=== PATIENT | male | born 1940 | race Caucasian/White ===

== ENCOUNTER 2019-10-16 10:43 | Outpatient (RCR) | payer MEDICARE, SELFPAY ==
[2019-10-16 11:08] VITALS: BMI 35.4
[2019-10-16 12:20] VITALS: BMI 35.3
[2019-10-16 12:22] VITALS: BMI 35.3
== END 2020-01-14 23:59 | disposition home or self-care (01) ==
LOC: ANHDMC 10:43
PROVIDERS: PCP Internal Medicine; Visit Provider Internal Medicine
DX: E11.65 Type 2 diabetes mellitus with hyperglycemia (principal); Z71.3 Dietary counseling and surveillance
CPT/HCPCS: 97802

== ENCOUNTER 2019-10-23 08:07 | Outpatient (CLI) | payer MEDICARE, SELFPAY ==
--- NOTE | ~2019-10-23 | CT_ITS ---
EXAMINATION: CT abdomen pelvis wo/w con EXAM DATE: 10/23/2019 09:02 INDICATION: Gross hematuria. TECHNIQUE: Spiral CT of the abdomen and pelvis was performed without contrast. The patient was then injected with small bolus intravenous Omnipaque 350, followed by delay of approximately 10 minutes to allow collecting system to opacify. A post contrast scan abdomen and pelvis was performed during inj ection of remaining contrast. A total of 130 cc intravenous contrast was administered. The dose-kourtney th product (DLP) for this examination was 2341.82 mGy-cm. The exposure was tailored according to pat ient size (auto mA exposure control), and iterative reconstruction (ASIR) was used as additional dose reduction technique. There is no prior study for comparison. FINDINGS: There is a bladder mass at the right ureterovesicular junction, extending into the bladder, measuring about 1.6 cm. Could be transitional cell cancer. Minimal right hydroureteronephrosis. The kidneys enhance symmetrically. There are no suspicious renal lesions. The calyces and opacified po rtions of ureters are unremarkable, without filling defects or focal suspicious strictures. There are radiation prostate seeds. Punctate pancreatic calcifications indicating chronic pancreatitis. Liver, spleen, adrenal glands are unremarkable. There is mild to moderate scattered arteriosclerotic disease. Gallbladder is unremarka ble. No biliary obstruction. There is no retroperitoneal or pelvic lymphadenopathy. Small umbilic al and bilateral inguinal fat-containing hernias. The appendix is normal. The stomach and small bowel are unremarkable. There is expected amount of c olonic stool. There is moderate descending and sigmoid predominant colonic diverticulosis. There is no adjacent inflammatory change to suggest diverticulitis. The heart is normal in size. There are no pericardial or pleural effusions. There is left basilar round opacity with volume loss, appearance consistent with round atelectasis. Other regions of basilar atelectasis are present. There are no os teoblastic or osteolytic lesions identified. IMPRESSION: 1. Bladder mass at the right ureterovesicular junction, mild right hydroureteronephrosis. Recommend cystoscopy. 2. Chronic pancreatitis. 3. Small hernias. 4. Colonic diverticulosis. 5. Basilar atelectasis. Reviewed, dictated and finalized at location B. A PROMOTER IMPRESSION: 1. Bladder mass at the right ureterovesicular junction, mild right hydroureter onephrosis. Recommend cystoscopy. 2. Chronic pancreatitis. 3. Small hernias. 4. Colonic diverticulosis. 5. Basilar atelectasis.
[2019-10-23 08:41] LABS: Blood Urea Nitrogen 36 mg/dL (8-26); Estimated Glomerular Filt Rate 37
== END 2019-10-23 08:08 | disposition home or self-care (01) ==
PROVIDERS: PCP Internal Medicine; Visit Provider Nurse Practitioner Adult Health
DX: R31.0 Gross hematuria (principal); K44.9 Diaphragmatic hernia without obstruction or gangrene; K57.30 Diverticulosis of large intestine without perforation or abscess without bleeding; R91.8 Other nonspecific abnormal finding of lung field; K86.1 Other chronic pancreatitis
CPT/HCPCS: 74178; Q9967

== ENCOUNTER 2019-11-19 13:01 | Outpatient (CLI) | payer MEDICARE, SELFPAY ==
[2019-11-19 13:29] LABS: Blood Urea Nitrogen 28 mg/dL (9-20); Calcium 9.4 mg/dL (8.4-10.2); Carbon Dioxide 30 mmol/L (22-30); Chloride 102 mmol/L (98-107); Estimated Glomerular Filt Rate 54; Glucose 202 mg/dL (75-110); Potassium 4.8 mmol/L (3.4-5.0); Sodium 137 mmol/L (137-145)
== END 2019-11-19 13:02 | disposition home or self-care (01) ==
LOC: ANHSURGERY 13:04
PROVIDERS: Anesthesiology; PCP Internal Medicine; Visit Provider Urology
DX: Z01.812 Encounter for preprocedural laboratory examination (principal); E11.9 Type 2 diabetes mellitus without complications
CPT/HCPCS: 36415; 80048

== ENCOUNTER 2019-11-22 00:33 | Day surgery (SDC) | payer MEDICARE, SELFPAY ==
[2019-11-16 12:37] VITALS: BMI 34.4
[2019-11-22] VITALS (8 sets, daily range): BP systolic 139–168; BP diastolic 58–93; PULSE 52–71; RESP 10–18; TEMP 36.6; O2SAT 97–100
--- NOTE | ~2019-11-22 | XR_ITS ---
EXAMINATION: XR retrograde pyelogram RT DATE: 11/22/2019 18:12 CDT INDICATION: Hematuria. Right hydronephrosis. TECHNIQUE: 111 fluoroscopic images from a right retrograde pyelogram are submitted for review. 21 sec onds of fluoroscopy FINDINGS: There is normal retrograde filling of the right ureter and renal pelvis with contrast. The right ureter is mildly dilated. No persistent filling defects are identified. There are possible fill ing defects in the lower aspect of the right renal pelvis, although this area is obscured by bowel co ntent. IMPRESSION: 1. Possible filling defect right renal pelvis inferiorly, although obscured by bowel content. Correl ate with real time procedural findings for details. Reviewed, dictated and finalized at location A. IMPRESSION: 1. Possible filling defect right renal pelvis inferiorly, although obscured by bowel content. Correlate with real time procedural findings for details.
--- NOTE | 2019-11-22 06:43 | WPDHPUPDATE1 ---
History and Physical Update Update Date/Time: 11/22/19 06:43 History and Physical has been reviewed, including an updated exam of the patient. There are NO changes in the patient's condition. Risks, benefits, and alternatives have been discussed and questions answered. Patient agrees to proceed with procedure.
--- NOTE | 2019-11-22 09:57 | WPDANESEPPF ---
Anes - Initial Pre Proc Eval Procedure: Operation Date: 11/22/19 11:30 Proposed Procedures p Cystoscopy, Right Retrograde Pyelogram, Right Ureteroscopy, - Andrzej Chapman MD s Possible Trans Urethral Resection Bladder Tumor - Andrzej Chapman MD Date/Time: 11/22/19 09:57 Surgeon: Andrzej Chapman MD Pre Op Diagnosis: hematuria, right hydronephrosis Patient Data Age: 78 Gender: M Height: 5 ft 10 in Weight: 108.86 kg Allergies Allergy/AdvReac Type Severity Reaction Status Date / Time No Known Allergies Allergy Verified 11/16/19 12:36 Home Medications Medication Instructions Recorded Confirmed Type hydrochlorothiazide 50 mg PO DAILY 08/17/19 11/21/19 History irbesartan 300 mg PO HS 08/17/19 11/21/19 History simvastatin 40 mg PO HS 08/17/19 11/21/19 History fluticasone fur. 100 mcg-umeclid 1 inhalation INHALATION DAILY 08/21/19 11/21/19 History 62.5 mcg-vilant 25 mcg inhalat.powder amlodipine 5 mg tablet 5 mg PO DAILY #30 tablet 11/11/19 11/21/19 Rx aspirin 81 mg PO HS 11/16/19 11/21/19 History blood sugar diagnostic #300 each 11/21/19 11/21/19 Rx glipizide 10 mg tablet, extended 10 mg PO BID 90 Days #180 tablet 11/21/19 11/21/19 Rx release 24 hr sitagliptin 100 mg tablet 100 mg PO QAM tablet 11/21/19 11/21/19 History Patient hx anesthesia problems: none Family hx anesthesia problems: none PMFSH Past Medical History Medical History Cataracts, bilateral Chronic back pain COPD (chronic obstructive pulmonary disease) CPAP (continuous positive airway pressure) dependence Diabetes Facial bone fracture Foot fracture GERD (gastroesophageal reflux disease) History of rectal polyps HTN (hypertension) Hyperlipidemia Prostate cancer Sleep apnea Stroke Surgical History Surgical History History of facial surgery Family History Family History Mother Cerebrovascular accident, Onset Age: 93 Patient's mother is Obesity Father Cerebrovascular accident, Onset Age: 84 Patient's father is Other Diabetes mellitus Family history of malignant neoplasm Hypertension Social History Social History Years smoked: 40 Smoking status: Former smoker Tobacco type: cigarettes Second hand tobacco smoke exposure: Yes Smoking end date: 08/18/19 Alcohol intake: current Drinks per week: 7 Substance use: never Gender identity (if verbalized by the patient): Male Spiritual care concerns: No Agree to blood products: No Anes - Eval Final PreProcedure Day of Procedure 11/22/19 09:57 Patient weight: obese Heart: regular rate and rhythm Lungs: decreased breath sounds Airway: Mallampati scale class II Neurological: alert and oriented Last oral intake: >/= 8 hours ASA classification: IV Emergent: no Anesthetic plan: proceed Anesthesia type and monitoring: general LMA and standard monitoring Informed Consent: The patient's anesthetic plan and its attendant risks and benefits were discussed with the patient/family/POA. Questions were solicited and answers provided to the satisfaction of the patient/family/POA.
[2019-11-22 09:58] LABS: Glucose Point of Care 183 (65-105)
[2019-11-22] MEDS: LACTATED RINGERS 1,000 ML 30 ML IV CONT (10:00)
[2019-11-22] MEDS: ceFAZolin 2 GM/D5W 50 ML 2 GM/50 ML BAG IVPB (10:03)
--- NOTE | 2019-11-22 10:36 | PM.PROC ---
Procedure Note - Detailed Date of procedure: 11/22/19 Pre-op diagnosis: hematuria, right hydronephrosis Post-op diagnosis: other (Large neoplasm posterior bladder wall) Procedure performed: 1. TURBT (large, 5-6cm) Description of procedure: Patient is brought to the operative suite where he has prepped and draped in routine sterile fashion while on a dorsal lithotomy position after the uneventful induction of a general LMA anesthetic. Cystoscopy was 1st undertaken with a 19 F rigid cystoscope. He has no urethral strictures and only moderate hyperplasia of his prostate. His bladder, however, revealed a large, somewhat unusual looking neoplasm overlying the right ureteral orifice. This appears to be pedunculated but is not particularly papillary in nature. It seems to be confined to that. The bladder although there is some slight hyperemia in the posterior wall. Using a 24 F resectoscope I resected this neoplasm in its entirety to its base. I sent a separate specimen as bladder tumor base. I then took a biopsy from the posterior wall. All the sites were cauterized with both the loop electrode and a rollerball electrode. After resection I was able to identify the right ureteral orifice. Retrograde pyelography showed no no apparent filling defects. I did perform right distal ureteroscopy with the semi-rigid scope and saw no mucosal abnormalities below the iliac vessels. Scopes wires were removed. The patient tolerated procedure well. I opted not to leave a urethral catheter. He was taken to the recovery room in good condition. Blood loss was less than 5 cc. Anesthesia: GLMA Surgeon: Andrzej Chapman MD Estimated blood loss (mL): 5 Drains: No Packing: No Pathology: yes (1. Bladder tumor 2. Bladder tumor base 3. Bladder biopsy) Complications: No immediate complications Condition: stable Disposition: PACU
--- NOTE | 2019-11-22 12:19 | ECG_ITS ---
Measurements Intervals [place] Rate: 57 P: 94 CT: 186 QRS: 38 QRSD: 116 T: 32 QT: 429 QTc: 419 Interpretive Statements SINUS BRADYCARDIA WITH MARKED SINUS ARRHYTHMIA ATRIAL PREMATURE COMPLEXES INTRAVENTRICULAR CONDUCTION DELAY BORDERLINE ECG Electronically Signed On 11-22-2019 12:53:54 CDT by Leland Day D.O.
--- NOTE | 2019-11-22 13:03 | SUR.PHASEII ---
1140 RECEIVED REPORT FROM COLLEGE AND CAREER COUNSELOR. RN STATES PT IN AFIB. DENIES PAIN OR SHORTNESS OF BREATH. PT HOOKED UP TO EKG- UNABLE TO SEE P WAVES. RHYTHM IRREGULAR. DR GRANT AWARE OF IRREGULAR HR. 1215 DR MONTELONGO AT PTS BEDSIDE ASSESSING EKG. 12 LEAD EKG ORDERED. 1228 12 LEAD EKG COMPLETED. 1230 DR MONTELONGO ASSESSING 12 LEAD EKG RESULTS. OKAY TO DISCHARGE HOME.
[2019-11-23 07:33] LABS: Glucose Point of Care 174 (65-105)
== END 2019-11-22 12:52 | disposition home or self-care (01) ==
PROVIDERS: PCP Internal Medicine; Visit Provider Urology
PROC: (CPT 52352; principal; 2019-11-22 11:30)
PROC: 0TBB8ZZ Excision of Bladder, Via Natural or Artificial Opening Endoscopic (ICD-10-PCS; CPT 52240; 2019-11-22 11:30)
DX: C67.8 Malignant neoplasm of overlapping sites of bladder (principal); N13.30 Unspecified hydronephrosis; I10 Essential (primary) hypertension; E78.5 Hyperlipidemia, unspecified; E11.9 Type 2 diabetes mellitus without complications; J44.9 Chronic obstructive pulmonary disease, unspecified; G47.33 Obstructive sleep apnea (adult) (pediatric); H26.9 Unspecified cataract; K21.9 Gastro-esophageal reflux disease without esophagitis; Z85.46 Personal history of malignant neoplasm of prostate; Z79.82 Long term (current) use of aspirin; Z79.84 Long term (current) use of oral hypoglycemic drugs; Z86.73 Personal history of transient ischemic attack (TIA), and cerebral infarction without residual deficits; Z87.891 Personal history of nicotine dependence; E66.9 Obesity, unspecified; Z68.35 Body mass index [BMI] 35.0-35.9, adult
CPT/HCPCS: 52240; 52204; 74420; 88305; 88307; 93005; C1758; C1769; J0690; J2405; J2704; J3010; J7120; Q9966

== ENCOUNTER 2020-04-01 10:27 | Outpatient (CLI) | payer MEDICARE, SELFPAY ==
--- NOTE | ~2020-04-01 | US_ITS ---
EXAMINATION: US venous doppler [facility] EXAM DATE: 04/01/2020 10:54 INDICATION: Left leg pain. TECHNIQUE: Multiple grayscale, color flow and Doppler images of the left lower extremity deep venous system were obtained and reviewed. There is no prior study for comparison. FINDINGS: The left common femoral, femoral and profunda veins demonstrate normal color flow, respirat ory variation, augmentation and compressibility. Compressibility, color flow confirmed within the le ft popliteal, posterior tibial, peroneal, and greater saphenous veins. IMPRESSION: 1. No left lower extremity deep venous thrombosis. Reviewed, dictated and finalized at location A.
== END 2020-04-01 10:28 | disposition home or self-care (01) ==
PROVIDERS: PCP Internal Medicine; Visit Provider Internal Medicine
DX: M79.605 Pain in left leg (principal)
CPT/HCPCS: 93971

== ENCOUNTER 2020-05-08 13:08 | Outpatient (CLI) | payer MEDICARE, SELFPAY ==
--- NOTE | 2020-05-08 13:25 | ECHO_ITS ---
Patient Info Name: Ihsan Henderson Age: 79 years : 1940 Gender: Male Ht: 70 in Wt: 250 lbs BSA: 2.41 m2 HR: 54 bpm BP: 190 / 92 mmHg Technical Quality: Good Exam Date: 05/08/2020 1:53 PM Exam Location: [facility] Pulmonary Patient Status: Outpatient Admit Date: 05/08/2020 Staff Ordering Physician: Tobin Alejandro DO Block Out Machine Operator: Don Whelan RDCS, RT Attending Provider: Tobin Alejandro DO Referring Physician: Javon BABIN; Exam Type: CA echo doppler color flow Study Info Indications R60.0 - Localized edema Complete two-dimensional, color flow and Doppler transthoracic echocardiogram is performed. Summary 1. Complete two-dimensional, color flow and Doppler transthoracic echocardiogram is performed. 2. Left ventricular chamber dimension is mildly enlarged. 3. Left ventricular systolic function is normal, estimated at 60-65%. 4. There is moderately increased left ventricular wall thickness. 5. The left ventricular diastolic function is grade I diastolic dysfunction. 6. E/e' 14 is mildly elevated. 7. Left atrial chamber dimension is mildly enlarged. 8. The mitral valve has mildly calcified annulus. 9. There is trace tricuspid valve regurgitation. 10. No pulmonary hypertension, estimated pulmonary arterial systolic pressure is 20 mmHg. 11. There is trace pulmonic regurgitation. Left Ventricle E/e' 14 is mildly elevated. Left ventricular chamber dimension is mildly enlarged. Left ventricular systolic function is normal, estimated at 60-65%. There is moderately increased left ventricular wall thickness. The left ventricular diastolic function is grade I diastolic dysfunction. Right Ventricle Right ventricular chamber dimension is normal. Right ventricular systolic function is normal. Left Atria Left atrial chamber dimension is mildly enlarged. Right Atria Right atrial chamber dimension is normal. Aortic Valve The aortic valve is trileaflet. There is no aortic valve stenosis. There is no aortic valve regurgitation. Pulmonic Valve There is trace pulmonic regurgitation. Mitral Valve The mitral valve has mildly calcified annulus. There is no mitral valve stenosis. There is no mitral valve regurgitation. Tricuspid Valve There is trace tricuspid valve regurgitation. No pulmonary hypertension, estimated pulmonary arterial systolic pressure is 20 mmHg. Pericardium/Pleural There is no pericardial effusion. Inferior Vena Cava Normal inferior vena cava with >50% collapse upon inspiration consistent with normal right atrial pressure, 5 mmHg. Aorta The aortic root size at the sinus of Valsalva is normal. Left Ventricular Outflow Tract Name Value Normal LVOT 2D LVOT Diameter 2.1 cm LVOT Doppler LVOT Peak Gradient 4 mmHg LVOT Mean Gradient 2 mmHg LVOT VTI 28 cm LVOT VTI/AV VTI Ratio 1.0 LVOT Stroke Volume 102 ml LVOT CO 6.6 l/min LVOT CI 2.7 l
== END 2020-05-08 13:09 | disposition home or self-care (01) ==
LOC: ANHCARD 13:12
PROVIDERS: PCP Internal Medicine; Visit Provider Internal Medicine
DX: M79.89 Other specified soft tissue disorders (principal); I34.0 Nonrheumatic mitral (valve) insufficiency
CPT/HCPCS: 93306

== ENCOUNTER 2020-06-24 00:36 | Outpatient (CLI) | payer MEDICARE, SELFPAY ==
[2020-06-24 19:00] LABS: SARS-CoV-2 RNA PCR Negative
== END 2020-06-24 00:37 | disposition home or self-care (01) ==
LOC: ANHCOVIDDT 00:36
PROVIDERS: PCP Internal Medicine; Visit Provider Urology
DX: Z01.812 Encounter for preprocedural laboratory examination (principal); Z20.828 Contact with and (suspected) exposure to other viral communicable diseases
CPT/HCPCS: 87635; C9803; U0003

== ENCOUNTER 2020-06-26 00:30 | Day surgery (SDC) | payer MEDICARE, SELFPAY ==
[2020-06-20 10:03] VITALS: BMI 35.7
[2020-06-26] VITALS (12 sets, daily range): BP systolic 175–212; BP diastolic 63–92; PULSE 50–77; RESP 10–18; TEMP 36.3–36.5; O2SAT 95–100
--- NOTE | ~2020-06-26 | XR_ITS ---
EXAMINATION: XR retrograde pyelogram BI DATE: 06/26/2020 10:47 INDICATION: Bilateral retrograde Polygram TECHNIQUE: 106 fluoroscopic images of the abdomen and pelvis were obtained during procedure performed by Dr. Chapman. Radiologist was not present for the imaging or procedure. The amount of fluoroscopy t mitali used during this procedure was 0.5 minutes. COMPARISON: None. FINDINGS: Images demonstrate bilateral retrograde pyelograms with contrast extending throughout normal bilatera l ureters into the normal bilateral renal calyces. No hydronephrosis, urothelial irregularities or fi lling defects to suggest nephrolithiasis. Numerous brachytherapy seeds at the prostate. IMPRESSION: 1. Normal bilateral retrograde pyelograms. See procedure note for further detail. Reviewed, dictated and finalized at location B. IMPRESSION: 1. Normal bilateral retrograde pyelograms. See procedure note for further detai l.
--- NOTE | 2020-06-26 06:55 | WPDHPUPDATE1 ---
History and Physical Update Update Date/Time: 06/26/20 06:55 History and Physical has been reviewed, including an updated exam of the patient. There are NO changes in the patient's condition. Risks, benefits, and alternatives have been discussed and questions answered. Patient agrees to proceed with procedure.
[2020-06-26 09:33] LABS: Glucose Point of Care 206 (65-105)
[2020-06-26 09:33] LABS: Glucose Point of Care 188 (65-105)
--- NOTE | 2020-06-26 09:35 | WPDANESEPPF ---
Anes - Initial Pre Proc Eval Procedure: Operation Date: 06/26/20 10:15 Proposed Procedures p Cystoscopy, Bilateral Retrograde Pyelogram - Andrzej Chapman MD s Trans Urethral Resection Bladder Tumor With Mitomycin-C - Andrzej Chapman MD Date/Time: 06/26/20 09:35 Surgeon: Andrzej Chapman MD Pre Op Diagnosis: Bladder CA Patient Data Age: 79 Gender: M Height: 5 ft 10 in Weight: 115 kg Last Vital Signs Temp 36.3 C L 06/26/20 09:18 Pulse 77 06/26/20 09:18 Resp 16 06/26/20 09:18 BP 182/82 H 06/26/20 09:18 Pulse Ox 97 06/26/20 09:18 Allergies Allergy/AdvReac Type Severity Reaction Status Date / Time amlodipine Allergy Mild swollen Verified 06/24/20 13:28 legs, rash Home Medications Medication Instructions Recorded Confirmed Type fluticasone fur. 100 mcg-umeclid 1 inhalation INHALATION QAM 08/21/19 06/24/20 History 62.5 mcg-vilant 25 mcg inhalat.powder aspirin 81 mg PO HS 11/16/19 06/24/20 History blood sugar diagnostic #300 each 03/01/20 06/24/20 Rx glipizide 10 mg tablet, extended 10 mg PO BID 90 Days #180 tablet 03/03/20 06/24/20 Rx release 24 hr irbesartan 300 mg tablet 300 mg PO HS #90 tablet 06/03/20 06/24/20 Rx simvastatin 40 mg tablet 40 mg PO HS #90 tablet 06/03/20 06/24/20 Rx sitagliptin 100 mg tablet 100 mg PO QAM #90 tablet 06/03/20 06/24/20 Rx hydrochlorothiazide 25 mg tablet 25 mg PO QAM tablet 06/19/20 06/24/20 History metoprolol tartrate 50 mg tablet 50 mg PO Q12H #180 tablet 06/23/20 06/24/20 Rx Laboratory Tests 06/26/20 06/26/20 09:21 09:23 POC Capillary Glucose 206 mg/dl H mg/dl 188 mg/dl H mg/dl (65-105) (65-105) Patient hx anesthesia problems: none Family hx anesthesia problems: none PMFSH Past Medical History Medical History Bladder cancer Diagnosed 12/2019 Cataracts, bilateral Chronic back pain COPD (chronic obstructive pulmonary disease) CPAP (continuous positive airway pressure) dependence Diabetes Facial bone fracture Foot fracture GERD (gastroesophageal reflux disease) History of rectal polyps HTN (hypertension) Hyperlipidemia Prostate cancer Sleep apnea Stroke Surgical History Surgical History History of facial surgery Family History Family History Mother Cerebrovascular accident, Onset Age: 93 Patient's mother is Obesity Father Cerebrovascular accident, Onset Age: 84 Patient's father is Other Diabetes mellitus Family history of malignant neoplasm Hypertension Social History Social History Smoking packs per day: 1 Smoking cigarettes per day: 20.0 Years smoked: 43 Smoking pack-years: 43.00 Smoking status: Former smoker Tobacco type: cigarettes Second hand tobacco smoke exposure: No Smoking end date: 03/12/04 Alcohol intake: current Drinks per week: 14 Alcohol use details: BEER/WINE Substance use: never Substance use type: does not use Living arrangements: with family Additional living arrangements comments: - EMILY Gender identity (if verbalized by the patient): Male Spiritual care concerns: No Agree to blood products: No Anes - Eval Final PreProcedure Day of Procedure 06/26/20 09:35 Patient weight: obese Heart: regular rate and rhythm Lungs: decreased breath sounds Airway: Mallampati scale class II Neurological: alert and oriented Last oral intake: >/= 8 hours ASA classification: III Emergent: no Anesthetic plan: proceed Anesthesia type and monitoring: general and standard monitoring Informed Consent: The patient's anesthetic plan and its attendant risks and benefits were discussed with the patient/family/POA. Questions were solicited and answers provided to the sa
[2020-06-26] MEDS: LACTATED RINGERS 1,000 ML 30 ML IV CONT (09:42)
[2020-06-26] MEDS: METOPROLOL TARTRATE INJ 5 MG/5 ML VIAL IV PUSH (09:43)
[2020-06-26] MEDS: ceFAZolin 2 GM/D5W 50 ML 2 GM/50 ML BAG IVPB (10:06)
[2020-06-26] MEDS: LIDOCAINE HCL 2% GEL UROJET 10 ML PKG MUCOUS MEM (10:25)
--- NOTE | 2020-06-26 10:33 | PM.PROC ---
Procedure Note - Detailed Date of procedure: 06/26/20 Pre-op diagnosis: Bladder CA Post-op diagnosis: same Procedure performed: 1. TURBT (small, 2-3cm) 2. Bilat. retrograde pyelograms Description of procedure: The patient was brought to the operative suite where he is prepped and draped in a routine sterile fashion while in the dorsal lithotomy position. This is done after the uneventful administration of general LMA anesthetic. 2% Xylocaine jelly is introduced intraurethrally and allowed to stand for an appropriate period of time. A 24F resectoscope sheath was placed in the bladder and the bladder is circumferentially inspected carefully. He has a single neoplastic looking growth just inside the posterior bladder neck - suspicuous for bladder neoplasm. This area is resected in its entirety with an attempt made to include detrusor muscle for pathological evaluation of invasion. The base and periphery of this resected side is cauterized with a loop electrode. Bilateral retrograde pyelograms were performed with an 8 F bulb-tipped catheter. This shows no evidence of upper urinary tract filling defects obstruction or other identifiable pathology. The bladder is emptied and the resectoscope was removed. The patient is taken to the recovery room having tolerated this procedure well. Anesthesia: GLMA Surgeon: Andrzej Chapman MD Estimated blood loss (mL): 0 Drains: Yes (16F Fonseca) Packing: No Pathology: yes Complications: No immediate complications Condition: stable Disposition: PACU
--- NOTE | 2020-06-26 10:36 | PM.PROC ---
Procedure Note - Detailed Date of procedure: 06/26/20 Pre-op diagnosis: Bladder CA Post-op diagnosis: same Procedure performed: Intravesical mitomycin-C installation Description of procedure: With the patient in the supine position, a 16F Fonseca catheter is placed using sterile technique. Using a protective facemask, gown and double layer of gloves Mitomycin-C 40mg in 50cc saline is administered through the catheter/into the bladder. The catheter is then plugged. Patient was instructed to lie supine x20min, then to roll both the left and right x20 min. each. Total dwell time will be 60 min., after which the bladder will be drained and catheter removed. Anesthesia: none Surgeon: Andrzej Chapman MD Estimated blood loss (mL): 0 Drains: No Packing: No Pathology: none sent Complications: No immediate complications Condition: stable Disposition: PACU
[2020-06-26 11:19] LABS: Glucose Point of Care 204 (65-105)
== END 2020-06-26 13:45 | disposition home or self-care (01) ==
PROVIDERS: PCP Internal Medicine; Visit Provider Urology
PROC: (CPT 52352; principal; 2020-06-26 10:15)
PROC: 0TBB8ZZ Excision of Bladder, Via Natural or Artificial Opening Endoscopic (ICD-10-PCS; CPT 52234; 2020-06-26 10:15)
DX: C67.5 Malignant neoplasm of bladder neck (principal); J44.9 Chronic obstructive pulmonary disease, unspecified; E11.9 Type 2 diabetes mellitus without complications; I10 Essential (primary) hypertension; E78.5 Hyperlipidemia, unspecified; K21.9 Gastro-esophageal reflux disease without esophagitis; G47.33 Obstructive sleep apnea (adult) (pediatric); Z85.46 Personal history of malignant neoplasm of prostate; Z79.84 Long term (current) use of oral hypoglycemic drugs; Z86.73 Personal history of transient ischemic attack (TIA), and cerebral infarction without residual deficits; Z87.891 Personal history of nicotine dependence; E66.9 Obesity, unspecified; Z68.36 Body mass index [BMI] 36.0-36.9, adult
CPT/HCPCS: 52234; 51720; 74420; 88305; A9270; C1758; C1769; J0690; J2405; J2704; J3010; J7120; J9280; Q9966

== ENCOUNTER → 2020-11-10 02:17 | Outpatient (CLI) | payer MEDICARE, SELFPAY ==
[2020-11-10 18:21] LABS: SARS-CoV-2 RNA PCR Negative
== END ==
PROVIDERS: PCP Internal Medicine; Visit Provider Urology
DX: Z01.812 Encounter for preprocedural laboratory examination (principal); Z20.822 Contact with and (suspected) exposure to COVID-19
CPT/HCPCS: C9803; U0003; U0005

== ENCOUNTER 2020-11-10 08:26 | Outpatient (CLI) | payer MEDICARE, SELFPAY ==
[2020-11-10 09:04] LABS: Anion Gap 1 mmol/L (8-16); Blood Urea Nitrogen 35 mg/dL (9-20); Calcium 8.8 mg/dL (8.4-10.2); Carbon Dioxide 33 mmol/L (22-30); Chloride 101 mmol/L (98-107); Estimated Glomerular Filt Rate 45; Glucose 240 mg/dL (75-110); Potassium 4.3 mmol/L (3.4-5.0); Sodium 135 mmol/L (137-145)
== END 2020-11-10 08:27 | disposition home or self-care (01) ==
PROVIDERS: Anesthesiology; PCP Internal Medicine; Visit Provider Urology
DX: Z01.812 Encounter for preprocedural laboratory examination (principal); E11.9 Type 2 diabetes mellitus without complications
CPT/HCPCS: 36415; 80048

== ENCOUNTER 2020-11-13 00:20 | Day surgery (SDC) | payer MEDICARE, SELFPAY ==
--- NOTE | 2020-11-04 08:13 | PM.HPGS ---
History of Present Illness History of Present Illness Consent: Risks, benefits, and alternatives have been discussed and questions answered. Patient agrees to proceed with procedure. Chief complaint: Recurring Bladder CA Narrative: Ihsan Henderson is a 79 year old male the we have struggle with intermittent scant hematuria and dysuria for 6-8 weeks. he is status post TURBT in November 2019 that showed muscle invasive high-grade bladder tumor.Cystoscopy in the office showed an area hyperemia in the posterior bladder wall of uncertain etiology, Not typical for recurrence neoplasm. Urinary cytology was slightly atypical but FISH was normal. Because of ongoing scan hematuria and dysuria he presents today for cystoscopy with bladder biopsy and possible TURBT. Review of Systems Cardiovascular: Cardiovascular: Denies chest pain, Denies lightheadedness, Denies palpitations and Denies dyspnea Respiratory: Respiratory: Denies dyspnea Gastrointestinal: Gastrointestinal: Denies diarrhea, Denies nausea and Denies vomiting Genitourinary: Genitourinary: Denies hematuria and Denies dysuria Endocrine: Endocrine: Denies palpitations [facility] Past Medical History Medical History (Updated 11/04/20 @ 08:14 by Andrzej Chapman MD) Bladder cancer Diagnosed 12/2019 Cataracts, bilateral Chronic back pain COPD (chronic obstructive pulmonary disease) CPAP (continuous positive airway pressure) dependence Diabetes Facial bone fracture Foot fracture GERD (gastroesophageal reflux disease) History of rectal polyps HTN (hypertension) Hyperlipidemia Prostate cancer Sleep apnea Stroke Surgical History Surgical History History of facial surgery Family History Family History Mother Cerebrovascular accident, Onset Age: 93 Patient's mother is Obesity Father Cerebrovascular accident, Onset Age: 84 Patient's father is Other Diabetes mellitus Family history of malignant neoplasm Hypertension Social History Social History Smoking packs per day: 1 Smoking cigarettes per day: 20.0 Years smoked: 43 Smoking pack-years: 43.00 Smoking status: Former smoker Tobacco type: cigarettes Second hand tobacco smoke exposure: No Smoking end date: 03/12/04 Alcohol intake: current Drinks per week: 14 Substance use: never Substance use type: does not use Additional living arrangements comments: - EMILY Gender identity (if verbalized by the patient): Male Spiritual care concerns: No Agree to blood products: No Meds Home Medications and Allergies Home Medications Medication Instructions Recorded Confirmed Type fluticasone fur. 100 mcg-umeclid 1 inhalation INHALATION QAM 08/21/19 09/22/20 History 62.5 mcg-vilant 25 mcg inhalat.powder aspirin 81 mg PO HS 11/16/19 09/22/20 History glipizide 10 mg tablet, extended 10 mg PO BID 90 Days #180 tablet 03/03/20 09/22/20 Rx release 24 hr irbesartan 300 mg tablet 300 mg PO HS #90 tablet 06/03/20 09/22/20 Rx simvastatin 40 mg tablet 40 mg PO HS #90 tablet 06/03/20 09/22/20 Rx sitagliptin 100 mg tablet 100 mg PO QAM #90 tablet 06/03/20 09/22/20 Rx metoprolol tartrate 50 mg tablet 50 mg PO Q12H #180 tablet 06/23/20 09/22/20 Rx cefuroxime axetil 500 mg tablet 500 mg PO Q12H #20 tablet 08/05/20 08/05/20 Rx blood sugar diagnostic #300 each 09/01/20 09/22/20 Rx betamethasone valerate 0.1 % 1 applic TOPICAL BID #45 g 09/22/20 09/22/20 Rx topical cream hydrochlorothiazide 25 mg tablet 25 mg PO QAM #90 tablet 09/29/20 Rx azelastine 137 mcg (0.1 %) nasal 2 spray INTRANASAL Q12H #30 ml 09/30/20 Rx spray aerosol Allergies Allergy/AdvReac Type Severity Reaction Status Date / Time amlodipine Allergy Mild swollen Verified 09/22/20 14:54 legs, rash
[2020-11-06 14:40] VITALS: BMI 34.2
--- NOTE | 2020-11-12 12:05 | WPDANESEPPF ---
Anes - Initial Pre Proc Eval Procedure: Operation Date: 11/13/20 08:15 Proposed Procedures p Trans Urethral Resection Bladder Tumor - Andrzej Chapman MD Date/Time: 11/12/20 12:05 Surgeon: Andrzej Chapman MD Pre Op Diagnosis: Recurring Bladder CA Patient Data Age: 79 Gender: M Height: 1.8 m Weight: 111.36 kg Allergies Allergy/AdvReac Type Severity Reaction Status Date / Time amlodipine Allergy Mild swollen Verified 11/13/20 06:20 legs, rash Home Medications Medication Instructions Recorded Confirmed Type fluticasone fur. 100 mcg-umeclid 1 inhalation INHALATION QAM 08/21/19 11/06/20 History 62.5 mcg-vilant 25 mcg inhalat.powder aspirin 81 mg PO HS 11/16/19 11/06/20 History glipizide 10 mg tablet, extended 10 mg PO BID 90 Days #180 tablet 03/03/20 11/06/20 Rx release 24 hr irbesartan 300 mg tablet 300 mg PO HS #90 tablet 06/03/20 11/06/20 Rx simvastatin 40 mg tablet 40 mg PO HS #90 tablet 06/03/20 11/06/20 Rx sitagliptin 100 mg tablet 100 mg PO QAM #90 tablet 06/03/20 11/06/20 Rx metoprolol tartrate 50 mg tablet 50 mg PO Q12H #180 tablet 06/23/20 11/06/20 Rx cefuroxime axetil 500 mg tablet 500 mg PO Q12H #20 tablet 08/05/20 11/06/20 Rx blood sugar diagnostic #300 each 09/01/20 11/06/20 Rx betamethasone valerate 0.1 % 1 applic TOPICAL BID #45 g 09/22/20 11/06/20 Rx topical cream hydrochlorothiazide 25 mg tablet 25 mg PO QAM #90 tablet 09/29/20 11/06/20 Rx azelastine 137 mcg (0.1 %) nasal 2 spray INTRANASAL Q12H #30 ml 09/30/20 11/06/20 Rx spray aerosol Patient hx anesthesia problems: none Family hx anesthesia problems: none PMFSH Past Medical History Medical History (Updated 11/13/20 @ 07:02 by Pilo Wilson MD) Bladder cancer Diagnosed 12/2019 BMI 36.0-36.9,adult Cataracts, bilateral Chronic back pain COPD (chronic obstructive pulmonary disease) CPAP (continuous positive airway pressure) dependence Diabetes Facial bone fracture Foot fracture GERD (gastroesophageal reflux disease) History of CVA with residual deficit History of rectal polyps HTN (hypertension) Hyperlipidemia Obesity Prostate cancer Sleep apnea Stroke Type 2 diabetes mellitus without complication, without long-term current use of insulin Surgical History Surgical History History of facial surgery Family History Family History Mother Cerebrovascular accident, Onset Age: 93 Patient's mother is Obesity Father Cerebrovascular accident, Onset Age: 84 Patient's father is Other Diabetes mellitus Family history of malignant neoplasm Hypertension Social History Social History Smoking packs per day: 1 Smoking cigarettes per day: 20.0 Years smoked: 43 Smoking pack-years: 43.00 Smoking status: Former smoker Tobacco type: cigarettes Second hand tobacco smoke exposure: No Smoking end date: 03/12/04 Alcohol intake: current Drinks per week: 14 Substance use: never Substance use type: does not use Living arrangements: alone Additional living arrangements comments: - EMILY Gender identity (if verbalized by the patient): Male Spiritual care concerns: No Agree to blood products: No Anes - Eval Final PreProcedure Day of Procedure 11/12/20 12:05 Patient weight: obese Heart: regular rate and rhythm Lungs: clear to auscultation and normal air movement Airway: Mallampati scale class II Neurological: alert and oriented Last oral intake: >/= 8 hours ASA classification: III Emergent: no Anesthetic plan: proceed Anesthesia type and monitoring: general LMA Informed Consent: The patient's anesthetic plan and its attendant risks and benefits were discussed with the patient/family/POA. Questions were solicited and answers provided to the satisfaction
[2020-11-13] VITALS (8 sets, daily range): BP systolic 148–186; BP diastolic 61–97; PULSE 45–67; RESP 12–20; TEMP 36.3–36.6; O2SAT 96–100
--- NOTE | 2020-11-13 07:01 | WPDHPUPDATE1 ---
History and Physical Update Update Date/Time: 11/13/20 07:01 History and Physical has been reviewed, including an updated exam of the patient. There are NO changes in the patient's condition. Risks, benefits, and alternatives have been discussed and questions answered. Patient agrees to proceed with procedure.
[2020-11-13 07:08] LABS: Glucose Point of Care 197 (65-105)
[2020-11-13] MEDS: ceFAZolin 2 GM/D5W 50 ML 2 GM/50 ML BAG IVPB (07:23)
[2020-11-13] MEDS: LIDOCAINE HCL 2% GEL UROJET 10 ML PKG MUCOUS MEM (07:55)
--- NOTE | 2020-11-13 07:58 | PM.PROC ---
Procedure Note - Detailed Date of procedure: 11/13/20 Pre-op diagnosis: Recurring Bladder CA Post-op diagnosis: same Procedure performed: 1. TURBT (small, 1cm) 2. Bladder biopsy Description of procedure: Patient is brought to the operative suite where he has prepped and draped in routine sterile fashion while in a dorsal lithotomy position. This procedure was done under a only minimal systemic sedation because of borderline hypertension. 2% xylocaine jelly was introduced intraurethrally and allowed to stay in for an appropriate period of time. 24F resectoscope was placed in the bladder. There to findings of no in this patient's bladder. First, in the posterior midline at the interureteric ridge there is a 1 cm, unusual appearing neoplastic lesion. This is pedunculated but not papillary. I resected this with an attempt made to include detrusor muscle for evaluation of invasion. Secondly, he has a generalized area of mild patchy hyperemia involving the posterior bladder. I obtain random biopsies from this using the loop electrode. The base and periphery the sites were cauterized with a rollerball. Anesthesia: MAC Surgeon: Andrzej Chapman MD Estimated blood loss (mL): 0 Drains: No Pathology: yes (1. Bladder tumor 2. Bladder biopsy) Complications: No immediate complications Condition: stable Disposition: PACU
[2020-11-13] MEDS: LACTATED RINGERS 1,000 ML 30 ML IV CONT (08:00)
--- NOTE | 2020-11-13 09:21 | SUR.PHASEII ---
Dr. Wilson is aware of BP. He said continue to monitor at this time.
[2020-11-13 12:05] LABS: Glucose Point of Care 199 (65-105)
== END 2020-11-13 10:03 | disposition home or self-care (01) ==
PROVIDERS: PCP Internal Medicine; Visit Provider Urology
PROC: 0TBB8ZZ Excision of Bladder, Via Natural or Artificial Opening Endoscopic (ICD-10-PCS; CPT 52234; principal; 2020-11-13 07:30)
DX: C67.0 Malignant neoplasm of trigone of bladder (principal); C67.3 Malignant neoplasm of anterior wall of bladder; I10 Essential (primary) hypertension; E11.9 Type 2 diabetes mellitus without complications; J44.9 Chronic obstructive pulmonary disease, unspecified; K21.9 Gastro-esophageal reflux disease without esophagitis; E78.5 Hyperlipidemia, unspecified; G47.33 Obstructive sleep apnea (adult) (pediatric); Z86.73 Personal history of transient ischemic attack (TIA), and cerebral infarction without residual deficits; Z85.46 Personal history of malignant neoplasm of prostate; Z79.84 Long term (current) use of oral hypoglycemic drugs; E66.9 Obesity, unspecified; Z68.33 Body mass index [BMI] 33.0-33.9, adult; Z87.891 Personal history of nicotine dependence
CPT/HCPCS: 52234; 52204; 36415; 80048; 82948; 88305; A9270; C9803; J0690; J2405; J2704; J3010; J7120; U0003; U0005

== ENCOUNTER 2021-04-13 10:09 | Outpatient (CLI) | payer MEDICARE, SELFPAY ==
--- NOTE | 2021-04-13 10:30 | ECG_ITS ---
Measurements Intervals [place] Rate: 55 P: 49 [place]: 181 QRS: 39 QRSD: 114 T: 16 QT: 423 QTc: 407 Interpretive Statements SINUS BRADYCARDIA WITH SINUS ARRHYTHMIA INTRAVENTRICULAR CONDUCTION DELAY BORDERLINE R WAVE PROGRESSION, ANTERIOR LEADS BORDERLINE T WAVE ABNORMALITY- INFERIOR LEADS BORDERLINE ECG Electronically Signed On 04-13-2021 11:11:14 CDT by Leland Day D.O.
[2021-04-13 11:19] LABS: Anion Gap 2 mmol/L (8-16); Blood Urea Nitrogen 34 mg/dL (9-20); Calcium 9.1 mg/dL (8.4-10.2); Carbon Dioxide 34 mmol/L (22-30); Chloride 100 mmol/L (98-107); Estimated Glomerular Filt Rate 39; Glucose 213 mg/dL (65-110); Sodium 136 mmol/L (137-145)
[2021-04-13 11:20] LABS: INR 0.8; Prothrombin Time 11.2 Seconds (11.1-14.7)
[2021-04-13 11:21] LABS: Partial Thromboplastin Time 24.9 SECONDS (22.3-36.8)
== END 2021-04-13 10:10 | disposition home or self-care (01) ==
PROVIDERS: Anesthesiology; PCP Internal Medicine; Visit Provider Urology
DX: E11.9 Type 2 diabetes mellitus without complications (principal); N18.30 Chronic kidney disease, stage 3 unspecified; Z01.818 Encounter for other preprocedural examination; I45.9 Conduction disorder, unspecified
CPT/HCPCS: 36415; 80048; 85610; 85730; 93005

== ENCOUNTER 2021-04-16 01:49 | Day surgery (SDC) | payer MEDICARE, SELFPAY ==
[2021-04-09 15:15] VITALS: BMI 34.2
--- NOTE | 2021-04-15 14:52 | WPDANESEPPF ---
Anes - Initial Pre Proc Eval Procedure: Operation Date: 04/16/21 07:30 Proposed Procedures p Trans Urethral Resection Bladder Tumor with Mitomycin Instillation - Andrzej Chapman MD Date/Time: 04/15/21 14:52 Surgeon: Andrzej Chapman MD Pre Op Diagnosis: gross hematuria, bladder cancer Patient Data Age: 80 Gender: M Height: 1.8 m Weight: 111.5 kg Allergies Allergy/AdvReac Type Severity Reaction Status Date / Time amlodipine Allergy Mild swollen Verified 04/09/21 15:31 legs, rash Home Medications Medication Instructions Recorded Confirmed Type aspirin 81 mg PO HS 11/16/19 04/09/21 History cefuroxime axetil 500 mg tablet 500 mg PO Q12H #20 tablet 08/05/20 04/09/21 Rx blood sugar diagnostic #300 each 09/01/20 04/09/21 Rx betamethasone valerate 0.1 % 1 applic TOPICAL BID #45 g 09/22/20 04/09/21 Rx topical cream azelastine 137 mcg (0.1 %) nasal 2 spray INTRANASAL Q12H #30 ml 09/30/20 04/09/21 Rx spray aerosol irbesartan 300 mg tablet 300 mg PO HS #90 tablet 11/22/20 04/09/21 Rx simvastatin 40 mg tablet 40 mg PO HS #90 tablet 11/22/20 04/09/21 Rx sitagliptin 100 mg tablet 100 mg PO QAM #90 tablet 11/22/20 04/09/21 Rx metoprolol tartrate 50 mg tablet 50 mg PO Q12H #180 tablet 12/18/20 04/09/21 Rx hydrochlorothiazide 25 mg tablet 25 mg PO QAM #90 tablet 12/30/20 04/09/21 Rx glipizide 10 mg tablet, extended 10 mg PO BID #60 tablet 04/09/21 04/09/21 Rx release 24 hr Patient hx anesthesia problems: none Family hx anesthesia problems: none PMFSH Past Medical History Medical History Bladder cancer Diagnosed 12/2019 BMI 36.0-36.9,adult Cataracts, bilateral Chronic back pain COPD (chronic obstructive pulmonary disease) CPAP (continuous positive airway pressure) dependence Diabetes Facial bone fracture Foot fracture GERD (gastroesophageal reflux disease) History of CVA with residual deficit History of rectal polyps HTN (hypertension) Hyperlipidemia Obesity Prostate cancer Sleep apnea Stroke Type 2 diabetes mellitus without complication, without long-term current use of insulin Surgical History Surgical History History of facial surgery Family History Family History Mother Cerebrovascular accident, Onset Age: 93 Patient's mother is Obesity Father Cerebrovascular accident, Onset Age: 84 Patient's father is Other Diabetes mellitus Family history of malignant neoplasm Hypertension Social History Social History Smoking packs per day: 1 Smoking cigarettes per day: 20.0 Years smoked: 40 Smoking pack-years: 40.00 Smoking status: Former smoker Tobacco type: cigarettes Second hand tobacco smoke exposure: No Smoking end date: 08/18/19 Alcohol intake: current Drinks per week: 7 Alcohol use details: BEER/WINE Substance use: never Substance use type: does not use Living arrangements: alone Additional living arrangements comments: - EMILY Gender identity (if verbalized by the patient): Male Spiritual care concerns: No Agree to blood products: No Anes - Eval Final PreProcedure Day of Procedure 04/15/21 14:52 Patient weight: obese Heart: regular rate and rhythm Lungs: clear to auscultation and normal air movement Airway: Mallampati scale class II Neurological: alert and oriented Last oral intake: >/= 8 hours ASA classification: III Emergent: no Anesthetic plan: proceed Anesthesia type and monitoring: general LMA Informed Consent: The patient's anesthetic plan and its attendant risks and benefits were discussed with the patient/family/POA. Questions were solicited and answers provided to the satisfaction of the patient/family/POA.
[2021-04-16] VITALS (12 sets, daily range): BP systolic 169–197; BP diastolic 58–93; PULSE 53–70; RESP 14–19; TEMP 36.3–36.7; O2SAT 97–100; BMI 36.1
--- NOTE | 2021-04-16 06:18 | WPDHPUPDATE1 ---
History and Physical Update Update Date/Time: 04/16/21 06:18 History and Physical has been reviewed, including an updated exam of the patient. There are NO changes in the patient's condition. Risks, benefits, and alternatives have been discussed and questions answered. Patient agrees to proceed with procedure.
[2021-04-16] MEDS: LACTATED RINGERS 1,000 ML 30 ML IV CONT (06:43)
[2021-04-16 06:45] LABS: Glucose Point of Care 191 mg/dl (65-105)
[2021-04-16] MEDS: ceFAZolin 2 GM/D5W 50 ML 2 GM/50 ML BAG IVPB (07:26)
[2021-04-16] MEDS: LIDOCAINE HCL 2% GEL UROJET 10 ML PKG MUCOUS MEM (07:45)
--- NOTE | 2021-04-16 08:05 | W.PM.PROC2 ---
Procedure Note - Detailed Date of Procedure 04/16/21 Pre-op Diagnosis gross hematuria, recurrent bladder cancer Post-op Diagnosis same Procedure Performed TURBT (medium, 4 cm) Surgeon Andrzej Chapman MD Anesthesia general Description of Procedure The patient was brought to the operative suite where he is prepped and draped in a routine sterile fashion while in the dorsal lithotomy position. This is done after the uneventful administration of general LMA anesthetic. 2% Xylocaine jelly is introduced intraurethrally and allowed to stand for an appropriate period of time. A 24F resectoscope sheath was placed in the bladder and the bladder is circumferentially inspected carefully. [He has a single area of hyperemia suggestive of papillary transitional cell carcinoma in the right posterior lateral bladder wall. This area is resected in its entirety with an attempt made to include detrusor muscle for pathological evaluation of invasion. The base and periphery of this resected side is cauterized with a loop electrode. The bladder is emptied and the resectoscope was removed. An 18 F urethral catheter was placed. The patient is taken to the recovery room having tolerated this procedure well. Estimated Blood Loss 0 Drains Yes (18F Fonseca catheter) Packing No Pathology yes Complications No immediate complications Condition stable Disposition PACU
[2021-04-16 08:08] LABS: Glucose Point of Care 198 mg/dl (65-105)
--- NOTE | 2021-04-16 08:08 | W.PM.PROC2 ---
Procedure Note - Detailed Date of Procedure 04/16/21 Pre-op Diagnosis gross hematuria, bladder cancer Post-op Diagnosis same Procedure Performed mitomycin-C installation Surgeon Andrzej Chapman MD Employment Instructional Associate None Anesthesia none Description of Procedure With the patient in the supine position, a 16F Fonseca catheter is placed using sterile technique. Using a protective facemask, gown and double layer of gloves Mitomycin-C 40mg in 50cc saline is administered through the catheter/into the bladder. The catheter is then plugged. Patient was instructed to lie supine x20min, then to roll both the left and right x20 min. each. Total dwell time will be 60 min., after which the bladder will be drained and catheter removed. Estimated Blood Loss 0 Drains No Packing No Pathology none sent Complications No immediate complications Condition stable Disposition PACU
--- NOTE | 2021-04-16 09:08 | SUR.PHASEI ---
Spoke with Dr. Wilson regarding patient's elevated blood pressure, new orders received.
[2021-04-16] MEDS: hydrALAZINE HCL 20 MG/ML VIAL 10 MG IV PUSH (09:11)
--- NOTE | 2021-04-16 09:30 | SUR.PHASEI ---
150 normal saline instilled into bladder via ramsey catheter, catheter discontinued following instillation. Patient tolerated well.
--- NOTE | 2021-04-16 16:53 | SUR.PHASEII ---
1015: Dr. Wilson aware of patient's BP and ok sending patient home. Patient told to take oral meds for BP at home.
== END 2021-04-16 10:36 | disposition home or self-care (01) ==
PROVIDERS: PCP Internal Medicine; Visit Provider Urology
PROC: 0TBB8ZZ Excision of Bladder, Via Natural or Artificial Opening Endoscopic (ICD-10-PCS; CPT 52235; principal; 2021-04-16 07:30)
DX: D09.0 Carcinoma in situ of bladder (principal); R31.0 Gross hematuria; N30.21 Other chronic cystitis with hematuria; R35.1 Nocturia; R39.15 Urgency of urination; N32.81 Overactive bladder; Z79.82 Long term (current) use of aspirin; J44.9 Chronic obstructive pulmonary disease, unspecified; E11.9 Type 2 diabetes mellitus without complications; K21.9 Gastro-esophageal reflux disease without esophagitis; Z86.73 Personal history of transient ischemic attack (TIA), and cerebral infarction without residual deficits; I10 Essential (primary) hypertension; G47.30 Sleep apnea, unspecified; E66.9 Obesity, unspecified; Z68.36 Body mass index [BMI] 36.0-36.9, adult; Z87.891 Personal history of nicotine dependence
CPT/HCPCS: 52235; 51720; 36415; 80048; 82948; 85610; 85730; 88305; 93005; A9270; J0360; J0690; J3010; J7120; J9280

== ENCOUNTER 2021-09-30 13:23 | Outpatient (CLI) | payer MEDICARE, SELFPAY ==
--- NOTE | ~2021-09-30 | US_ITS ---
EXAMINATION: US renal BI EXAM DATE: 09/30/2021 14:00 INDICATION: Stage 3B chronic kidney disease. TECHNIQUE: Multiple grayscale and Doppler images of the kidneys were obtained (by a technologist who performed the scan) and subsequently reviewed. Comparison is made to prior examination from 10/08/2019 . Correlation was made with CT 10/23/2019. FINDINGS: There is moderate amount of bilateral renal cortical thinning. Right kidney: There is normal contour and echogenicity. It measures 11.9 x 5.7 x 6.1 centimeters. T here are no focal renal lesions identified. There is no hydronephrosis. Left kidney: There is normal contour and echogenicity. It measures 11.7 x 5.1 x 6.0 centimeters. Th ere are no focal renal lesions identified. There is no hydronephrosis. There is dependent echogenic region in the bladder causing artifact artifact suggesting this could be bladder stone or multiple small layering stones. Finding was not present 2 years ago. IMPRESSION: 1. Bilateral renal cortical thinning. No hydronephrosis. 2. Dependent bladder region with artifact suggesting calcification, bladder stone or stones. Calcifi ed bladder mass also possible given prior CT scan. Reviewed, dictated and finalized at location [facility] [employer] IMPRESSION: 1. Bilateral renal cortical thinning. No hydronephrosis. 2. Dependent bladder region with artifact suggesting calcification, bladder st one or stones. Calcified bladder mass also possible given prior CT scan.
== END 2021-09-30 13:24 | disposition home or self-care (01) ==
PROVIDERS: PCP Internal Medicine; Visit Provider Internal Medicine Nephrology
DX: I12.9 Hypertensive chronic kidney disease with stage 1 through stage 4 chronic kidney disease, or unspecified chronic kidney disease (principal); N18.32 Chronic kidney disease, stage 3b; E11.29 Type 2 diabetes mellitus with other diabetic kidney complication
CPT/HCPCS: 76775

== ENCOUNTER 2021-10-29 09:00 | Outpatient (CLI) | payer MEDICARE, SELFPAY ==
[2021-10-29 09:47] LABS: Prothrombin Time 12.6 Seconds (11.1-14.7)
[2021-10-29 09:55] LABS: Anion Gap 4 mmol/L (8-16); Blood Urea Nitrogen 29 mg/dL (9-20); Calcium 9.3 mg/dL (8.4-10.2); Carbon Dioxide 31 mmol/L (22-30); Chloride 105 mmol/L (98-107); Estimated Glomerular Filt Rate 39; Glucose 206 mg/dL (65-110); Potassium 4.6 mmol/L (3.4-5.0); Sodium 140 mmol/L (137-145)
== END 2021-10-29 09:01 | disposition home or self-care (01) ==
PROVIDERS: Anesthesiology; PCP Internal Medicine; Visit Provider Urology
DX: N18.9 Chronic kidney disease, unspecified (principal); Z01.818 Encounter for other preprocedural examination
CPT/HCPCS: 36415; 80048; 85610; 85730

== ENCOUNTER 2021-11-05 00:22 | Day surgery (SDC) | payer MEDICARE, SELFPAY ==
[2021-10-27 14:30] VITALS: BMI 36.3
--- NOTE | 2021-10-27 14:39 | PC.NURSE ---
Report to the Outpatient Waiting Room, entrance under the green pavilion located off [facility], at time _0700_ on date _11/05/21_. OR Time: _0900_. - You and your visitor will be asked a series of questions to screen for COVID 19 for your protection. - A mask is required within the hospital. Preoperative COVID Testing Requirements: NONE Patients may have clear liquids (water, carbonated beverages, clear teas, apple juice) until 3 hours prior to surgery (0600 AM) with a maximum of 20 ounces. - No food from midnight until time of surgery Take the following medications with a SIP of water the morning of surgery: _FELODIPINE, METOPROLOL, __ Medications to discontinue per physician _PT STATES STOPPING ASPIRIN __ Please no make-up, nail uruguayan, hairspray, perfume, deodorant, or body powder the day of surgery. No jewelry (including any body piercings) or valuables the day of surgery, leave them at home. Please take a shower or bath the night before, or the morning of, surgery with an antibacterial soap. Wear comfortable, loose fitting clothing. Children are encouraged to wear pajamas. - Jewelry must be removed prior to entering the operating room. Rings and piercings that are not removed may be cut off. - The hospital will not accept responsibility for valuables. - Please leave all valuables, including medications, at home the day of surgery. If you are going home after surgery, a licensed vibratory pile driver must drive you home. - NO public transportation without another adult. - We recommend that an adult stay with you for 24 hours following discharge. - We also recommend that you do not drive, make important decision, drink alcoholic beverages, or take any drugs that were not prescribed by your health care provider for at least 24 hours after your discharge time. One visitor will be allowed to accompany the patient into the hospital. Patients visitor will be instructed to remain with patient at all times or leave the building. We will allow the visitor to come back to the postoperative area when patient is ready. Follow any additional instructions given to you from your surgeon. Telephone instructions given to ____PT and asked if any additional questions and then verbalized understanding. Patient advised to call surgeon office or pre surgery nurse liaison, KARLA [phone] if any additional questions.
--- NOTE | 2021-11-02 07:02 | PM.HPGS ---
History of Present Illness History of Present Illness Consent: Risks, benefits, and alternatives have been discussed and questions answered. Patient agrees to proceed with procedure. Chief complaint: bladder cancer, gross hematuria Narrative: Ihsan Henderson is a 80 year old male, well known to our practice, with a history of recurrent bladder tumor dating back to November 2019. He initially had a muscle invasive bladder tumor which, upon resection, did not initially persist or recur. Since then he has had several recurrences of more superficial neoplasm. He has had courses of both adjuvant BCG and mitomycin C. recent surveillance cystoscopy shows a small recurrence in the posterior bladder wall at the bladder neck. Review of Systems Cardiovascular: Cardiovascular: Denies chest pain, Denies lightheadedness, Denies palpitations and Denies dyspnea Respiratory: Respiratory: Denies dyspnea Gastrointestinal: Gastrointestinal: Denies diarrhea, Denies nausea and Denies vomiting Genitourinary: Genitourinary: Denies hematuria and Denies dysuria Endocrine: Endocrine: Denies palpitations PMFSH Past Medical History Medical History Bladder cancer Diagnosed 12/2019 BMI 36.0-36.9,adult Cataracts, bilateral Chronic back pain COPD (chronic obstructive pulmonary disease) CPAP (continuous positive airway pressure) dependence Diabetes Facial bone fracture Foot fracture GERD (gastroesophageal reflux disease) History of CVA with residual deficit History of rectal polyps HTN (hypertension) Hyperlipidemia Obesity Prostate cancer Sleep apnea Stroke Type 2 diabetes mellitus without complication, without long-term current use of insulin Surgical History Surgical History History of facial surgery Family History Family History Mother Cerebrovascular accident, Onset Age: 93 Patient's mother is Obesity Father Cerebrovascular accident, Onset Age: 84 Patient's father is Other Diabetes mellitus Family history of malignant neoplasm Hypertension Social History Social History Smoking packs per day: 1 Smoking cigarettes per day: 20.0 Years smoked: 44 Smoking pack-years: 44.00 Smoking status: Former smoker Tobacco type: cigarettes Second hand tobacco smoke exposure: No Smoking end date: 03/12/04 Alcohol intake: current Drinks per week: 14 Alcohol use details: BEER/WINE Substance use: never Substance use type: does not use Additional living arrangements comments: - EMILY Gender identity (if verbalized by the patient): Male Spiritual care concerns: No Agree to blood products: No Meds Home Medications and Allergies Home Medications Medication Instructions Recorded Confirmed Type blood sugar diagnostic #300 each 09/01/20 10/27/21 Rx azelastine 137 mcg (0.1 %) nasal 2 spray INTRANASAL Q12H #30 ml 09/30/20 10/27/21 Rx spray aerosol hydrocodone-acetaminophen 1 - 2 tablet PO Q6H PRN #20 tablet 04/16/21 10/27/21 Rx simvastatin 40 mg tablet 40 mg PO HS #90 tablet 05/28/21 10/27/21 Rx metoprolol tartrate 50 mg tablet 50 mg PO Q12H #180 tablet 06/11/21 10/27/21 Rx mupirocin 2 % topical ointment 1 applic TOPICAL TID #22 g 06/22/21 10/27/21 Rx Rybelsus 7 mg tablet 7 mg PO DAILY #90 tablet NS 07/29/21 10/27/21 Rx hydrochlorothiazide 25 mg tablet 25 mg PO QAM #90 tablet 08/05/21 10/27/21 Rx glipizide 10 mg tablet, extended 10 mg PO BID #180 tablet 10/07/21 10/27/21 Rx release 24 hr felodipine 2.5 mg tablet,extended See Rx Instructions .ROUTE 10/18/21 10/27/21 Rx release 24 hr .COMPLEX #90 tablet irbesartan 300 mg tablet 300 mg PO HS #90 tablet 10/26/21 10/27/21 Rx Allergies Allergy/AdvReac Type Severity Reaction Status Ean
[2021-11-05] VITALS (12 sets, daily range): BP systolic 157–221; BP diastolic 72–109; PULSE 78–98; RESP 11–20; TEMP 36.1–36.6; O2SAT 93–100
--- NOTE | 2021-11-05 06:43 | WPDHPUPDATE1 ---
History and Physical Update Update Date/Time: 11/05/21 06:43 History and Physical has been reviewed, including an updated exam of the patient. There are NO changes in the patient's condition. Risks, benefits, and alternatives have been discussed and questions answered. Patient agrees to proceed with procedure.
[2021-11-05] MEDS: LACTATED RINGERS 1,000 ML 30 ML IV CONT (07:31)
[2021-11-05 07:41] LABS: Glucose Point of Care 155 mg/dl (65-105)
--- NOTE | 2021-11-05 07:50 | WPDANESEPPF ---
Anes - Initial Pre Proc Eval Procedure: Operation Date: 11/05/21 09:00 Proposed Procedures p Trans Urethral Resection Bladder Tumor with Gemcitabine Instillation - Andrzej Chapman MD Date/Time: 11/05/21 07:50 Surgeon: Andrzej Chapman MD Pre Op Diagnosis: bladder cancer, gross hematuria Patient Data Age: 80 Gender: M Height: 1.8 m Weight: 116.9 kg Last Vital Signs Temp 36.1 C L 11/05/21 07:03 Pulse 79 11/05/21 07:03 Resp 16 11/05/21 07:03 BP 185/97 H 11/05/21 07:03 Pulse Ox 98 11/05/21 07:03 Allergies Allergy/AdvReac Type Severity Reaction Status Date / Time amlodipine Allergy Mild swollen Verified 11/05/21 07:17 legs, rash Home Medications Medication Instructions Recorded Confirmed Type blood sugar diagnostic #300 each 09/01/20 10/27/21 Rx azelastine 137 mcg (0.1 %) nasal 2 spray INTRANASAL Q12H #30 ml 09/30/20 11/05/21 Rx spray aerosol hydrocodone-acetaminophen 1 - 2 tablet PO Q6H PRN #20 tablet 04/16/21 11/05/21 Rx simvastatin 40 mg tablet 40 mg PO HS #90 tablet 05/28/21 11/05/21 Rx metoprolol tartrate 50 mg tablet 50 mg PO Q12H #180 tablet 06/11/21 11/05/21 Rx Rybelsus 7 mg tablet 7 mg PO DAILY #90 tablet NS 07/29/21 11/05/21 Rx hydrochlorothiazide 25 mg tablet 25 mg PO QAM #90 tablet 08/05/21 11/05/21 Rx felodipine 2.5 mg tablet,extended See Rx Instructions .ROUTE 10/18/21 11/05/21 Rx release 24 hr .COMPLEX #90 tablet irbesartan 300 mg tablet 300 mg PO HS #90 tablet 10/26/21 11/05/21 Rx dapagliflozin 10 mg tablet 10 mg PO DAILY 90 Days #90 tablet 11/03/21 11/05/21 Rx glipizide 10 mg PO DAILY 11/05/21 11/05/21 History Laboratory Tests 11/05/21 07:38 POC Capillary Glucose 155 mg/dl H mg/dl (65-105) Patient hx anesthesia problems: none Family hx anesthesia problems: none Results Review: All pre-operative results and documents have been reviewed as part of the pre-operative evaluation. [facility] Past Medical History Medical History Bladder cancer Diagnosed 12/2019 BMI 36.0-36.9,adult Cataracts, bilateral Chronic back pain COPD (chronic obstructive pulmonary disease) CPAP (continuous positive airway pressure) dependence Diabetes Facial bone fracture Foot fracture GERD (gastroesophageal reflux disease) History of CVA with residual deficit History of rectal polyps HTN (hypertension) Hyperlipidemia Obesity Prostate cancer Sleep apnea Stroke Type 2 diabetes mellitus without complication, without long-term current use of insulin Surgical History Surgical History History of facial surgery Family History Family History Mother Cerebrovascular accident, Onset Age: 93 Patient's mother is Obesity Father Cerebrovascular accident, Onset Age: 84 Patient's father is Other Diabetes mellitus Family history of malignant neoplasm Hypertension Social History Social History Smoking packs per day: 1 Smoking cigarettes per day: 20.0 Years smoked: 40 Smoking pack-years: 40.00 Smoking status: Former smoker Tobacco type: cigarettes Second hand tobacco smoke exposure: No Smoking end date: 08/18/19 Alcohol intake: current Drinks per week: 7 Alcohol use details: BEER/WINE Substance use: never Substance use type: does not use Living arrangements: alone Additional living arrangements comments: - EMILY Gender identity (if verbalized by the patient): Male Spiritual care concerns: No Agree to blood products: No Anes - Eval Final PreProcedure Day of Procedure 11/05/21 07:50 Patient weight: obese Heart: regular rate and rhythm Lungs: clear to auscultation Airway: Mallampati scale class II Neurological: alert and oriented Last oral intake: >/= 8 hour
[2021-11-05] MEDS: ceFAZolin 2 GM/D5W 50 ML 2 GM/50 ML BAG IVPB (08:19)
[2021-11-05] MEDS: LIDOCAINE HCL 2% GEL UROJET 10 ML PKG MUCOUS MEM (08:32)
--- NOTE | 2021-11-05 08:51 | W.PM.PROC2 ---
Procedure Note - Detailed Date of Procedure 11/05/21 Pre-op Diagnosis bladder cancer, gross hematuria Post-op Diagnosis same Procedure Performed TURBT (medium, 3-4cm) Surgeon Andrzej Chapman MD Anesthesia general Description of Procedure The patient was brought to the operative suite where he is prepped and draped in a routine sterile fashion while in the dorsal lithotomy position. This is done after the uneventful administration of systemic sedation. 2% Xylocaine jelly is introduced intraurethrally and allowed to stand for an appropriate period of time. A 24F resectoscope sheath was placed in the bladder and the bladder is circumferentially inspected carefully. 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 This area is resected in its entirety with an attempt made to include detrusor muscle for pathological evaluation of invasion. The base and periphery of this resected side is cauterized with a loop electrode. The bladder is emptied and the resectoscope was removed. The patient is taken to the recovery room having tolerated this procedure well. Estimated Blood Loss 0 Drains Yes Packing No Pathology yes Complications No immediate complications Condition stable Disposition PACU
--- NOTE | 2021-11-05 08:54 | W.PM.PROC2 ---
Procedure Note - Detailed Date of Procedure 11/05/21 Pre-op Diagnosis bladder cancer, gross hematuria Post-op Diagnosis same Procedure Performed Gemcitobene instillation Surgeon Andrzej Chapman MD Anesthesia general and none Description of Procedure With the patient in the supine position, a 16F Fonseca catheter is placed using sterile technique. Using a protective facemask, gown and double layer of gloves Gemcitabine 2gm in 100cc saline is administered through the catheter/into the bladder. The catheter is then plugged. Patient was instructed to lie supine x20min, then to roll both the left and right x20 min. each. Total dwell time will be 60 min., after which the bladder will be drained and catheter removed. Estimated Blood Loss 0 Drains Yes Packing No Pathology none sent Complications No immediate complications Condition stable Disposition PACU
[2021-11-05] MEDS: SODIUM CHLORIDE 0.9% IV 23.7 ML, GEMCITABINE HCL 1,000 MG BLADDER ×2 (09:02→09:03)
[2021-11-05] MEDS: fentaNYL CITRATE INJ (*CRX) 100 MCG/2 ML VIAL 25 MCG IV PUSH ×8 (09:07→10:03)
[2021-11-05] MEDS: hydrALAZINE HCL 20 MG/ML VIAL 10 MG IV PUSH ×2 (09:15→10:03)
[2021-11-05 09:16] LABS: Glucose Point of Care 150 mg/dl (65-105)
== END 2021-11-05 11:20 | disposition home or self-care (01) ==
PROVIDERS: PCP Internal Medicine; Visit Provider Urology
PROC: 0TBB8ZZ Excision of Bladder, Via Natural or Artificial Opening Endoscopic (ICD-10-PCS; CPT 52235; principal; 2021-11-05 09:00)
DX: C67.2 Malignant neoplasm of lateral wall of bladder (principal); R31.0 Gross hematuria; J44.9 Chronic obstructive pulmonary disease, unspecified; E11.9 Type 2 diabetes mellitus without complications; K21.9 Gastro-esophageal reflux disease without esophagitis; I10 Essential (primary) hypertension; E78.5 Hyperlipidemia, unspecified; G47.30 Sleep apnea, unspecified; Z86.73 Personal history of transient ischemic attack (TIA), and cerebral infarction without residual deficits; E66.9 Obesity, unspecified; Z68.35 Body mass index [BMI] 35.0-35.9, adult; Z79.84 Long term (current) use of oral hypoglycemic drugs; Z87.891 Personal history of nicotine dependence
CPT/HCPCS: 52235; 51720; 36415; 80048; 82948; 85610; 85730; 88305; A9270; J0360; J0690; J1100; J2405; J2704; J3010; J7120; J9201

== ENCOUNTER 2022-02-25 12:40 | Emergency (ER) | payer MEDICARE, SELFPAY ==
--- NOTE | ~2022-02-25 | XR_ITS ---
EXAMINATION: XR chest 2V DATE: 02/25/2022 13:05 INDICATION: Shortness of breath, cough and fever TECHNIQUE: PA and lateral views of the chest were obtained. COMPARISON: Chest CT dated 12/22/1969 FINDINGS: Opacities in the bilateral lower lung zones with flattening of the diaphragm and blunting at the cost ophrenic angles and posterior sulci correspond to bilateral pleural-parenchymal scarring on prior CT. Persistent more nodular appearing opacities in the left lower lung zone corresponding to regions of round atelectasis. No new airspace opacities, pulmonary edema, pneumothorax or definitive pleural eff usion.. Heart size is normal. Mild thoracic spondylosis. IMPRESSION: 1. Stable appearance of chronic for differences in technique in pleural-parenchymal scarring in the b ilateral lower lung zones with a couple more nodular regions of round atelectasis in the left lower l obe. Reviewed, dictated and finalized at location A. IMPRESSION: 1. Stable appearance of chronic for differences in technique in pleural-parench ymal scarring in the bilateral lower lung zones with a couple more nodular audelia ons of round atelectasis in the left lower lobe.
--- NOTE | 2022-02-25 12:45 | ED.SOB ---
HPI - SOB/Dyspnea General Chief Complaint: Shortness of Breath/Dyspnea Stated Complaint: shortness of breath, fatigue Time Seen by Provider: 02/25/22 12:45 Source: patient and RN notes reviewed History of Present Illness HPI Narrative: Patient is a 81-year-old male who presents the urgent care with his daughter with complaints of shortness of breath, fatigue, cough and fever. Patient states that it started on Tuesday and he seems to have gotten better as far as the fatigue however he now has the wet cough and increased shortness of breath. Patient does have a history of COPD and does use a CPAP at night. Patient has been using his inhalers and albuterol. Patient is also use Tylenol, NyQuil, Benadryl and Sudafed. Patient states the fever broke last night. No other acute complaints. No acute distress noted. Patient aware of the plan of care. Some parts of this dictation were generated by voice recognition software and may contain typographical and/or grammatical inaccuracies. Related Data Home Medications Medication Instructions Recorded Confirmed azelastine 137 mcg (0.1 %) nasal 2 spray intranasal Q12H PRN 02/16/22 02/25/22 spray aerosol Congestion glipizide 10 mg tablet, extended 20 mg PO DAILY 02/16/22 02/25/22 release 24 hr albuterol 90 mcg/actuation aerosol 90 mcg inhalation PRN PRN 02/25/22 02/25/22 inhaler Shortness Of Breath fluticasone fur. 100 mcg-umeclid 1 inh inhalation DAILY 02/25/22 02/25/22 62.5 mcg-vilant 25 mcg inhalat.powder (Trelegy Ellipta) Allergies Allergy/AdvReac Type Severity Reaction Status Date / Time amlodipine Allergy Mild swollen Verified 02/25/22 12:47 legs, rash dapagliflozin [From [facility]] Allergy Unknown rash, Verified 02/25/22 12:47 itching Review of Systems Review of Systems: CONSTITUTIONAL: Denies fever, chills, or sweats. Reports of fatigue EYES: Denies visual changes, redness, or discharge. ENT: Reports of rhinorrhea, congestion, postnasal drainage CARDIOVASCULAR: Denies chest pain, palpitations, or edema. RESPIRATORY: Persistent cough on exam with dyspnea GASTROINTESTINAL: Denies abdominal pain, nausea, vomiting, or diarrhea. GENITOURINARY: Denies dysuria or hematuria. SKIN: Denies rash or itching. MUSCULOSKELETAL: Denies back pain, joint pain, or myalgia. NEUROLOGIC: Denies headache, numbness, or weakness. All other systems reviewed are negative, except as documented in HPI. [facility] Past Medical History Medical History Bladder cancer Diagnosed 12/2019 BMI 36.0-36.9,adult Cataracts, bilateral Chronic back pain Chronic renal failure, stage 3 (moderate) COPD (chronic obstructive pulmonary disease) CPAP (continuous positive airway pressure) dependence GERD (gastroesophageal reflux disease) History of CVA with residual deficit History of rectal polyps HTN (hypertension) Hyperlipidemia Obesity Prostate cancer Sleep apnea Stroke Type 2 diabetes mellitus without complication, without long-term current use of insulin Surgical History Surgical History History of facial surgery Family History Family History Mother Cerebrovascular accident, Onset Age: 93 Patient's mother is Obesity Father Cerebrovascular accident, Onset Age: 84 Patient's father is Other Diabetes mellitus Family history of malignant neoplasm Hypertension Social History Social History Smoking packs per day: 1 Smoking cigarettes per day: 20.0 Years smoked: 40 Smoking pack-years: 40.00 Smoking status: Former smoker Tobacco type: cigarettes Second hand tobacco smoke exposure: No Alcohol intake: current Drinks per week: 7 Alcohol use details: BEER/WINE Substance use: ne
[2022-02-25 12:49] VITALS: BP 211/75; PULSE 73; RESP 24; TEMP 36.4; O2SAT 97
== END 2022-02-25 13:45 | disposition home or self-care (01) ==
PROVIDERS: Emergency Provider Nurse Practitioner Family; PCP Internal Medicine
DX: U07.1 COVID-19 (principal); Z87.891 Personal history of nicotine dependence; J44.9 Chronic obstructive pulmonary disease, unspecified; K21.9 Gastro-esophageal reflux disease without esophagitis; I10 Essential (primary) hypertension; E78.5 Hyperlipidemia, unspecified; E66.9 Obesity, unspecified; G47.30 Sleep apnea, unspecified; E11.9 Type 2 diabetes mellitus without complications; Z79.84 Long term (current) use of oral hypoglycemic drugs; Z86.73 Personal history of transient ischemic attack (TIA), and cerebral infarction without residual deficits; Z85.51 Personal history of malignant neoplasm of bladder; Z85.46 Personal history of malignant neoplasm of prostate
CPT/HCPCS: 71046; 87426; 99213; C9803; G0463

== ENCOUNTER 2022-05-03 07:40 | Outpatient (CLI) | payer MEDICARE, SELFPAY ==
--- NOTE | 2022-05-03 08:00 | ECG_ITS ---
Measurements Intervals [place] Rate: 90 P: 30 MO: 158 QRS: 32 QRSD: 109 T: 23 QT: 357 QTc: 438 Interpretive Statements SINUS RHYTHM NONSPECIFIC T-WAVE ABNORMALITY BORDERLINE ECG COMPARED TO ECG 04/13/2021 10:25:44 SINUS RHYTHM NOW PRESENT T-WAVE ABNORMALITY NOW PRESENT Electronically Signed On 05-03-2022 16:21:27 CDT by Ad Hartmann M.D.
[2022-05-03 08:16] LABS: Prothrombin Time 12.7 Seconds (11.1-14.7)
[2022-05-03 08:17] LABS: Partial Thromboplastin Time 24.1 SECONDS (22.3-36.8)
[2022-05-03 08:24] LABS: Anion Gap 7 mmol/L (8-16); Blood Urea Nitrogen 24 mg/dL (9-20); Calcium 8.7 mg/dL (8.4-10.2); Carbon Dioxide 30 mmol/L (22-30); Chloride 96 mmol/L (98-107); Estimated Glomerular Filt Rate 39; Glucose 378 mg/dL (65-110); Potassium 4.6 mmol/L (3.4-5.0); Sodium 133 mmol/L (137-145)
== END 2022-05-03 07:41 | disposition home or self-care (01) ==
LOC: ANHSURGERY 07:44
PROVIDERS: Anesthesiology; PCP Internal Medicine; Visit Provider Urology
DX: E11.9 Type 2 diabetes mellitus without complications (principal); N18.30 Chronic kidney disease, stage 3 unspecified; Z01.818 Encounter for other preprocedural examination
CPT/HCPCS: 36415; 80048; 85610; 85730; 93005

== ENCOUNTER 2022-05-06 01:27 | Day surgery (SDC) | payer MEDICARE, SELFPAY ==
--- NOTE | 2022-04-28 15:03 | PC.NURSE ---
Report to the Outpatient Waiting Room, entrance under the green pavilion located off [facility], at time _0615_ on date _05/06/22_. OR Time: _0815_. - You and your visitor will be asked to self-screen and do not enter if you have any COVID symptoms. - Only one visitor and NO children visitors are allowed at this time. - The patient visitor is requested to leave or wait in car when not with patient due to restrictions. - A mask is required within the hospital. Patients may have clear liquids (water, carbonated beverages, clear teas, apple juice) until 3 hours prior to surgery (0515 AM) with a maximum of 20 ounces. - No food from midnight until time of surgery Take the following medications with a SIP of water the morning of surgery: _FELODIPINE, METOPROLOL, TRELEGY INHALER_ Medications to discontinue per physician ____NONE , Date to take last dose Please no make-up, nail palestinian, hairspray, perfume, deodorant, or body powder the day of surgery. No jewelry (including any body piercings) or valuables the day of surgery, leave them at home. Please take a shower or bath the night before, or the morning of, surgery with an antibacterial soap. Wear comfortable, loose fitting clothing. - Jewelry must be removed prior to entering the operating room. Rings and piercings that are not removed may be cut off. - The hospital will not accept responsibility for valuables. - Please leave all valuables, including medications, at home the day of surgery. If you are going home after surgery, a licensed delivery motorcycle driver must drive you home. - NO public transportation without another adult. - We recommend that an adult stay with you for 24 hours following discharge. - We also recommend that you do not drive, make important decision, drink alcoholic beverages, or take any drugs that were not prescribed by your health care provider for at least 24 hours after your discharge time. Follow any additional instructions given to you from your surgeon. If you or anyone in your household have experienced Covid symptoms in the past week, please notify your surgeon or the nurse liaison at the phone number below for possible testing. Telephone instructions given to ___PT and asked if any additional questions and then verbalized understanding. Patient advised to call surgeon office or pre surgery nurse liaison [phone] if any additional questions.
[2022-04-28 15:05] VITALS: BMI 35.6
--- NOTE | 2022-05-03 07:20 | PM.HPGS ---
History of Present Illness History of Present Illness Consent: Risks, benefits, and alternatives have been discussed and questions answered. Patient agrees to proceed with procedure. 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 Because it was somewhat pedunculated he opted against definitive intervention but proceeded with re-resection. On that he had no identifiable cancer. He is since had recurrences that is been managed with resection and 2 types of intravesical therapy. Three months ago he was found to have another muscle invasive bladder cancer that is bladder neck and now presents for re-resection that area. He is aware of the risk is procedure including, but not limited to, adverse cardiopulmonary events, recurrent or progressive urothelial carcinoma, hematuria. Review of Systems Cardiovascular: Cardiovascular: Denies chest pain, Denies lightheadedness, Denies palpitations and Denies dyspnea Respiratory: Respiratory: Denies dyspnea Gastrointestinal: Gastrointestinal: Denies diarrhea, Denies nausea and Denies vomiting Genitourinary: Genitourinary: Denies hematuria and Denies dysuria Endocrine: Endocrine: Denies palpitations [facility] Past Medical History Medical History Bladder cancer Diagnosed 12/2019 BMI 36.0-36.9,adult Cataracts, bilateral Chronic back pain Chronic renal failure, stage 3 (moderate) COPD (chronic obstructive pulmonary disease) CPAP (continuous positive airway pressure) dependence GERD (gastroesophageal reflux disease) History of CVA with residual deficit History of rectal polyps HTN (hypertension) Hyperlipidemia Obesity Prostate cancer Sleep apnea Stroke Type 2 diabetes mellitus without complication, without long-term current use of insulin Surgical History Surgical History History of facial surgery Family History Family History Mother Cerebrovascular accident, Onset Age: 93 Patient's mother is Obesity Father Cerebrovascular accident, Onset Age: 84 Patient's father is Other Diabetes mellitus Family history of malignant neoplasm Hypertension Social History Social History Smoking packs per day: 1 Smoking cigarettes per day: 20.0 Years smoked: 44 Smoking pack-years: 44.00 Smoking status: Former smoker Tobacco type: cigarettes Second hand tobacco smoke exposure: No Smoking end date: 09/12/03 Alcohol intake: current Drinks per week: 14 Alcohol use details: BEER/WINE Substance use: never Substance use type: does not use Additional living arrangements comments: - EMILY Gender identity (if verbalized by the patient): Male Spiritual care concerns: No Agree to blood products: No Meds Home Medications and Allergies Home Medications Medication Instructions Recorded Confirmed Type blood sugar diagnostic (OneTouch #300 ea 09/01/20 04/28/22 Rx Ultra Blue Test Strip) simvastatin 40 mg tablet 40 mg PO HS #90 tabs 05/28/21 04/28/22 Rx hydrochlorothiazide 25 mg tablet 25 mg PO QAM #90 tabs 08/05/21 04/28/22 Rx irbesartan 300 mg tablet 300 mg PO HS #90 tabs 11/13/21 04/28/22 Rx metoprolol tartrate 50 mg tablet 50 mg PO Q12H #180 tabs 12/23/21 04/28/22 Rx Rybelsus 7 mg tablet (semaglutide) 7 mg PO DAILY #90 tabs 02/16/22 04/28/22 Rx azelastine 137 mcg (0.1 %) nasal 2 spray intranasal Q12H PRN 02/16/22 04/28/22 History spray aerosol Congestion albuterol 90 mcg/actuation aerosol 90 mcg inhalation PRN PRN 02/25/22 04/28/22 History inhaler Shortness Of Breath albuterol sulfate 90 mcg/actuation 2 puff inhalation QID PRN 02/25/22 04/28/22 Rx
--- NOTE | 2022-05-05 12:54 | WPDANESEPPF ---
Anes - Initial Pre Proc Eval Procedure: Operation Date: 05/06/22 07:30 Proposed Procedures p Re-Resection of Bladder Tumor - Andrzej Chapman MD Date/Time: 05/05/22 12:54 Surgeon: Andrzej Chapman MD Pre Op Diagnosis: gross hematuria Patient Data Age: 81 Gender: M Height: 1.8 m Weight: 116 kg Allergies Allergy/AdvReac Type Severity Reaction Status Date / Time dapagliflozin [From [facility]] Allergy Intermediate rash, Verified 05/06/22 06:35 itching amlodipine Allergy Mild swollen Verified 05/06/22 06:35 legs, rash Home Medications Medication Instructions Recorded Confirmed Type blood sugar diagnostic (OneTouch #300 ea 09/01/20 04/28/22 Rx Ultra Blue Test Strip) simvastatin 40 mg tablet 40 mg PO HS #90 tabs 05/28/21 05/06/22 Rx hydrochlorothiazide 25 mg tablet 25 mg PO QAM #90 tabs 08/05/21 05/06/22 Rx irbesartan 300 mg tablet 300 mg PO HS #90 tabs 11/13/21 05/06/22 Rx metoprolol tartrate 50 mg tablet 50 mg PO Q12H #180 tabs 12/23/21 05/06/22 Rx Rybelsus 7 mg tablet (semaglutide) 7 mg PO DAILY #90 tabs 02/16/22 05/06/22 Rx azelastine 137 mcg (0.1 %) nasal 2 spray intranasal Q12H PRN 02/16/22 05/06/22 History spray aerosol Congestion albuterol 90 mcg/actuation aerosol 90 mcg inhalation PRN PRN 02/25/22 05/06/22 History inhaler Shortness Of Breath albuterol sulfate 90 mcg/actuation 2 puff inhalation QID PRN 02/25/22 05/06/22 Rx aerosol inhaler shortness of breath or wheezing #8 grams fluticasone fur. 100 mcg-umeclid 1 inh inhalation DAILY 02/25/22 05/06/22 History 62.5 mcg-vilant 25 mcg inhalat.powder (Trelegy Ellipta) glipizide 10 mg tablet, extended 20 mg PO DAILY #180 tabs 04/14/22 05/06/22 Rx release 24 hr felodipine 2.5 mg tablet,extended See Rx Instructions .Route 04/25/22 05/06/22 Rx release 24 hr .COMPLEX #90 tabs Patient hx anesthesia problems: none Family hx anesthesia problems: none Results Review: All pre-operative results and documents have been reviewed as part of the pre-operative evaluation. [facility] Past Medical History Medical History Bladder cancer Diagnosed 12/2019 BMI 36.0-36.9,adult Cataracts, bilateral Chronic back pain Chronic renal failure, stage 3 (moderate) COPD (chronic obstructive pulmonary disease) CPAP (continuous positive airway pressure) dependence GERD (gastroesophageal reflux disease) History of CVA with residual deficit History of rectal polyps HTN (hypertension) Hyperlipidemia Obesity Prostate cancer Sleep apnea Stroke Type 2 diabetes mellitus without complication, without long-term current use of insulin Surgical History Surgical History History of facial surgery Family History Family History Mother Cerebrovascular accident, Onset Age: 93 Patient's mother is Obesity Father Cerebrovascular accident, Onset Age: 84 Patient's father is Other Diabetes mellitus Family history of malignant neoplasm Hypertension Social History Social History Smoking packs per day: 1 Smoking cigarettes per day: 20.0 Years smoked: 44 Smoking pack-years: 44.00 Smoking status: Former smoker Tobacco type: cigarettes Second hand tobacco smoke exposure: No Smoking end date: 09/12/03 Alcohol intake: current Drinks per week: 14 Alcohol use details: BEER/WINE Substance use: never Substance use type: does not use Living arrangements: alone Additional living arrangements comments: - EMILY Gender identity (if verbalized by the patient): Male Spiritual care concerns: No Agree to blood products: No Anes - Eval Final PreProcedure Day of Procedure 05/05/22 12:54 Patient weight: obese Heart: regula
[2022-05-06] VITALS (7 sets, daily range): BP systolic 149–187; BP diastolic 62–92; PULSE 62–72; RESP 16–22; TEMP 36.2–36.4; O2SAT 94–100
[2022-05-06] MEDS: LACTATED RINGERS 1,000 ML 30 ML IV CONT (06:44)
--- NOTE | 2022-05-06 06:48 | WPDHPUPDATE1 ---
History and Physical Update Update Date/Time: 05/06/22 06:48 History and Physical has been reviewed, including an updated exam of the patient. There are NO changes in the patient's condition. Risks, benefits, and alternatives have been discussed and questions answered. Patient agrees to proceed with procedure.
[2022-05-06 06:53] LABS: Glucose Point of Care 330 mg/dl (65-105)
[2022-05-06] MEDS: ceFAZolin 2 GM/D5W 50 ML 2 GM/50 ML BAG IVPB (07:26)
[2022-05-06] MEDS: LIDOCAINE HCL 2% GEL UROJET 10 ML PKG MUCOUS MEM (07:46)
--- NOTE | 2022-05-06 07:50 | W.PM.PROC2 ---
Procedure Note - Detailed Date of Procedure 05/06/22 Pre-op Diagnosis History of invasive bladder cancer Post-op Diagnosis Same Procedure Performed TURBT (small, 2 cm) Surgeon Andrzej Chapman MD Description of Procedure This patient is brought to the operative suite where he has prepped and draped in routine sterile fashion while in a dorsal lithotomy position after the uneventful induction of a general LMA anesthetic. Twenty-four F resectoscope was placed in his bladder. He has evidence of a prior TURP with no real obstruction of the prostatic urethra. Careful inspection of the bladder shows an area of hyperemia in the posterior midline, at the site of his prior muscle invasive bladder cancer. There is no markus recurrence of neoplasm at that site. The remainder of the urothelial mucosa is normal without hyperemia. His ureteral orifices are normal in position with clear efflux of urine bilaterally. Using a 24 F resectoscope loop I resected this area of hyperemia in the posterior midline and cauterized the base. Care was taken to avoid injury to the ureteral orifices. The resectoscope was removed the patient was taken recovery room having tolerated this procedure well. Packing No Pathology Yes Complications No immediate complications Condition Stable
[2022-05-06 08:03] LABS: Glucose Point of Care 327 mg/dl (65-105)
--- NOTE | 2022-05-06 09:24 | SUR.PHASEII ---
Patient vitals are stable and he is just waiting for ride.
== END 2022-05-06 09:38 | disposition home or self-care (01) ==
PROVIDERS: PCP Internal Medicine; Visit Provider Urology
PROC: 0TBB8ZZ Excision of Bladder, Via Natural or Artificial Opening Endoscopic (ICD-10-PCS; CPT 52234; principal; 2022-05-06 07:30)
DX: C67.8 Malignant neoplasm of overlapping sites of bladder (principal); N32.89 Other specified disorders of bladder; Z87.891 Personal history of nicotine dependence; N18.30 Chronic kidney disease, stage 3 unspecified; K21.9 Gastro-esophageal reflux disease without esophagitis; J44.9 Chronic obstructive pulmonary disease, unspecified; I12.9 Hypertensive chronic kidney disease with stage 1 through stage 4 chronic kidney disease, or unspecified chronic kidney disease; E78.5 Hyperlipidemia, unspecified; E11.22 Type 2 diabetes mellitus with diabetic chronic kidney disease; E66.9 Obesity, unspecified; Z68.34 Body mass index [BMI] 34.0-34.9, adult
CPT/HCPCS: 52234; 36415; 80048; 82948; 85610; 85730; 88305; 93005; A9270; J0690; J2704; J3010; J7120

== ENCOUNTER 2022-07-21 17:45 | Emergency (ER) | payer MEDICARE, SELFPAY ==
--- NOTE | 2022-07-21 17:48 | ED.SKABFB ---
HPI - Skin/Abscess/Foreign Bdy General Stated complaint: Laceration to the thumb Time Seen by Provider: 07/21/22 17:48 Source: patient and RN notes reviewed History of Present Illness HPI narrative: patient is a 81-year-old male who presents to the Urgent Care with his daughter with complaints of a laceration between the left thumb and index finger. Patient states he lacerated on a trash can last night at approximately 10:00 p.m.. Patient states he has not had the wounds seen by providers since the incident. Patient has not tried to keep it clean but has washed the hands as normal. No other acute complaints. No acute distress noted. Patient aware of the plan of care. Some parts of this dictation were generated by voice recognition software and may contain typographical and/or grammatical inaccuracies. Related Data Home Medications Medication Instructions Recorded Confirmed azelastine 137 mcg (0.1 %) nasal 2 spray intranasal Q12H PRN 02/16/22 06/29/22 spray aerosol Congestion fluticasone fur. 100 mcg-umeclid 1 inh inhalation DAILY 02/25/22 06/29/22 62.5 mcg-vilant 25 mcg inhalat.powder (Trelegy Ellipta) Allergies Allergy/AdvReac Type Severity Reaction Status Date / Time dapagliflozin [From [facility]] Allergy Intermediate rash, Verified 06/29/22 10:20 itching amlodipine Allergy Mild swollen Verified 06/29/22 10:20 legs, rash Review of Systems Review of Systems: CONSTITUTIONAL: Denies fever, chills, or sweats. EYES: Denies visual changes, redness, or discharge. ENT: Denies rhinorrhea, congestion, sore throat, or otalgia. CARDIOVASCULAR: Denies chest pain, palpitations, or edema. RESPIRATORY: Denies cough or dyspnea. GASTROINTESTINAL: Denies abdominal pain, nausea, vomiting, or diarrhea. GENITOURINARY: Denies dysuria or hematuria. SKIN: Reports of a laceration between the left thumb and index finger MUSCULOSKELETAL: Denies back pain, joint pain, or myalgia. NEUROLOGIC: Denies headache, numbness, or weakness. All other systems reviewed are negative, except as documented in HPI. [facility] Past Medical History Medical History Bladder cancer Diagnosed 12/2019 BMI 36.0-36.9,adult Cataracts, bilateral Chronic back pain Chronic renal failure, stage 3 (moderate) COPD (chronic obstructive pulmonary disease) CPAP (continuous positive airway pressure) dependence GERD (gastroesophageal reflux disease) History of CVA with residual deficit History of rectal polyps HTN (hypertension) Hyperlipidemia Obesity Prostate cancer Sleep apnea Stroke Type 2 diabetes mellitus without complication, without long-term current use of insulin Surgical History Surgical History History of facial surgery Family History Family History Mother Cerebrovascular accident, Onset Age: 93 Patient's mother is Obesity Father Cerebrovascular accident, Onset Age: 84 Patient's father is Other Diabetes mellitus Family history of malignant neoplasm Hypertension Social History Social History Smoking packs per day: 1 Smoking cigarettes per day: 20.0 Years smoked: 44 Smoking pack-years: 44.00 Smoking status: Former smoker Tobacco type: cigarettes Second hand tobacco smoke exposure: No Smoking end date: 09/12/03 Alcohol intake: current Drinks per week: 10 Alcohol use details: BEER/WINE Substance use: never Additional living arrangements comments: - [place] Gender identity (if verbalized by the patient): Male Spiritual care concerns: No Agree to blood products: No Comments At the time of my signature, I reviewed and agree with the nursing past medical, surgical, social, and family history. There is no relevant family history
[2022-07-21 18:01] VITALS: BP 176/87; PULSE 68; RESP 20; TEMP 36.7; O2SAT 99
== END 2022-07-21 18:00 | disposition short-term general hospital (02) ==
PROVIDERS: Emergency Provider Nurse Practitioner Family; PCP Internal Medicine
DX: S61.412A Laceration without foreign body of left hand, initial encounter (principal); W45.8XXA Other foreign body or object entering through skin, initial encounter; J44.9 Chronic obstructive pulmonary disease, unspecified; G47.30 Sleep apnea, unspecified; K21.9 Gastro-esophageal reflux disease without esophagitis; E78.5 Hyperlipidemia, unspecified; E66.9 Obesity, unspecified; Z68.35 Body mass index [BMI] 35.0-35.9, adult; Z85.46 Personal history of malignant neoplasm of prostate; Z85.51 Personal history of malignant neoplasm of bladder; I69.30 Unspecified sequelae of cerebral infarction; I12.9 Hypertensive chronic kidney disease with stage 1 through stage 4 chronic kidney disease, or unspecified chronic kidney disease; N18.30 Chronic kidney disease, stage 3 unspecified; E11.22 Type 2 diabetes mellitus with diabetic chronic kidney disease; Z79.84 Long term (current) use of oral hypoglycemic drugs
CPT/HCPCS: 99212; G0463

== ENCOUNTER 2022-07-30 11:03 | Outpatient (CLI) | payer MEDICARE, SELFPAY ==
[2022-07-30 11:20] LABS: Basophils Percent Auto 0.4 % (0.2-1.2); Eosinophils Absolute Auto 0.3 K/mm3 (0-0.3); Eosinophils Percent Auto 3.4 % (0-4.4); Hematocrit 39.1 % (42.0-52.0); Hemoglobin 13.3 g/dL (14.0-18.0); Immature Granulocyte Absolute 0.02 K/mm3 (0.00-0.031); Immature Granulocyte Percent A 0.3 % (0-0.5); Lymphocytes Absolute Auto 1.31 K/mm3 (0.9-3.2); Lymphocytes Percent Auto 17.6 % (18.3-44.2); Mean Corpuscular Hemoglobin 32.9 pg (26-34); Mean Corpuscular Volume 96.8 fl (80-100); Mean Platelet Volume 9.2 fl (7.4-10.4); Monocytes Absolute Auto 0.6 K/mm3 (0.1-0.6); Monocytes Percent Auto 7.4 % (2.6-8.5); Neutrophils Absolute Auto 5.3 K/mm3 (1.3-6.7); Neutrophils Percent Auto 70.9 % (45.5-73.1); Platelet Count Result 261 k/mm3 (150-375); Red Blood Count 4.04 M/mm3 (4.6-6.20); Red Cell Distribution Width 12.5 % (11.5-14.5); White Blood Count 7.4 K/mm3 (4.5-10.0)
[2022-07-30 14:53] LABS: Alanine Aminotransferase 20 U/L (6-50); Albumin Level 3.7 g/dL (3.5-5.1); Alkaline Phosphatase 109 U/L (38-126); Anion Gap 10 mmol/L (8-16); Aspartate Amino Transferase 26 U/L (17-59); Bilirubin,Total 0.5 mg/dL (0.2-1.3); Blood Urea Nitrogen 37 mg/dL (9-20); Calcium 8.5 mg/dL (8.4-10.2); Carbon Dioxide 29 mmol/L (22-30); Chloride 98 mmol/L (98-107); Estimated Glomerular Filt Rate 32; Glucose 316 mg/dL (65-110); Potassium 4.7 mmol/L (3.4-5.0); Sodium 137 mmol/L (137-145)
[2022-07-30 15:23] LABS: Prostate Specific Antigen < 0.1 ng/mL (< OR = 4.0)
[2022-07-30 15:42] LABS: Lactate Dehydrogenase 204 U/L (120-246)
== END 2022-07-30 11:04 | disposition home or self-care (01) ==
LOC: ANHLAB 11:04
PROVIDERS: PCP Internal Medicine; Visit Provider Internal Medicine Hematology & Oncology
DX: R59.0 Localized enlarged lymph nodes (principal); Z85.46 Personal history of malignant neoplasm of prostate
CPT/HCPCS: 36415; 80053; 83615; 84153; 85025; 88184

== ENCOUNTER 2022-08-19 13:15 | Outpatient (RCR) | payer MEDICARE, SELFPAY ==
--- NOTE | 2022-06-07 09:18 | PCPTNOTE ---
Patient did not show up for scheduled initial evaluation this date.
--- NOTE | 2022-06-09 11:26 | PTOPEVAL1 ---
Assessment and note entered by Cornelius Ordoñez, PT, DPT Evaluation Information Assessment Status Evaluation Diagnosis unsteadiness on feet Subjective Information Pt states he is really unsteady on his feet. He states it has been like this for a while. He states he fell 3 weeks ago, and states this is the only one in the last year. He reports using furniture and the doorways to help steady himself. Pt states he would like to be able to walk 5 mins . He states he would like to walk more efficiently. Reported Pain Level Pain Score 0: Self Report Assessment PT Clinical Summary Ihsan Leary presents to therapy today for his initial evaluation with a diagnosis of unsteadiness on his feet. Today he demonstrates good functional strength but has decreased strength in his ankles and hips wil. He requires increased time to complete the TUG and 5xSTS placing him at an increased risk for falls. He ambulates with flat foot contact with a wide SPEEDY and wil hip ext rot. He also demonstrates decreased balance score on the ALLAN balance assessment. Skilled physical therapy services are indicated to address the deficits noted above, to improve balance, strength, and endurance, and to promote unlimited functional mobility. Plan of Care Interventions Gait Training,Manual Therapy,Neuro Re-education, Patient/Caregiver Educati,Therapeutic Activities, Therapeutic Exercise PT Services Indicated Yes Treatment Frequency and 1x/wk for 6 wks Duration These treatments will address the objective and functional deficits as defined above. The patient will be advanced safely and appropriately in order for the patient to progress towards his/her prior level of function. Additional exercises will be introduced and as well as a comprehensive home exercise program upon discharge, if needed, ?to ensure carryover of functional gains achieved in the clinic. This treatment plan has been reviewed and agreement upon by the patient.
--- NOTE | 2022-06-09 11:39 | PTOPEVAL1 ---
Assessment and note entered by Cornelius Ordoñez, PT, DPT Evaluation Information Assessment Status Evaluation Diagnosis unsteadiness on feet Subjective Information Pt states he is really unsteady on his feet. He states it has been like this for a while. He states he fell 3 weeks ago, and states this is the only one in the last year. He reports using furnature and the doorways to help steady himself. Pt states he would like to be able to walk 5 mins . He states he would like to walk more efficently. Reported Pain Level Pain Score 0: Self Report Assessment PT Clinical Summary Ihsan Leary presents to therapy today for his initial evaluation with a diagnosis of unsteadiness on his feet. Today he demonstrates good functional strength but has decreased strength in his ankles and hips wil. He requires increased time to complete the TUG and 5xSTS placing him at an increased risk for falls. He ambulates with flat foot contact with a wide SPEEDY and wil hip ext rot. He also demonstrates decreased balance score on the ALLAN balance assessment. Skilled physical therapy services are indicated to address the deficits noted above, to improve balance, strength, and endurance, and to promote unlimited functional mobility. Allan 43/56 5xSTS = 39s Plan of Care Interventions Gait Training,Manual Therapy,Neuro Re-education, Patient/Caregiver Educati,Therapeutic Activities, Therapeutic Exercise PT Services Indicated Yes Treatment Frequency and 1x/wk for 6 wks Duration These treatments will address the objective and functional deficits as defined above. The patient will be advanced safely and appropriately in order for the patient to progress towards his/her prior level of function. Additional exercises will be introduced and as well as a comprehensive home exercise program upon discharge, if needed, ?to ensure carryover of functional gains achieved in the clinic. This treatment plan has been reviewed and agreement upon by the patient.
--- NOTE | 2022-06-30 09:49 | PCPTNOTE ---
Patient no showed to appointment this date. Called and left voicemail this date and asked patient to call back to possibly reschedule.
--- NOTE | 2022-07-21 09:55 | PCPTNOTE ---
Patient called & cancelled scheduled appointment this date due to having a fever. He has been rescheduled.
--- NOTE | 2022-07-22 15:39 | PTOPPROG ---
Assessment and note entered by Cornelius Ordoñez, PT, DPT Evaluation Information Assessment Status Progress Diagnosis unsteadiness on feet Subjective Information Pt states he feels like things are going well. He states he fell a few days ago and had to get stitches in his hand. He reports good compliance with his HEP. Assessment PT Clinical Summary Ihsan Leary presents to therapy today for his progress report following 5 visits of skilled therapy. Today he demonstrates mild improvements in his gait speed and TUG time. Today he was unable to complete the 5x STS without UE support like he was on the first day. He contines to ambulates at a decreased gait speed and has an increased TUG time that places him at an increased risk for falls. Continuation of skilled physical therapy services are indicated to continue progressing balance, strength, dynamic and static stability, and to promote safety. Plan of Care Interventions Gait Training,Manual Therapy,Neuro Re-education, Patient/Caregiver Educati,Therapeutic Activities, Therapeutic Exercise PT Services Indicated Yes Treatment Frequency and 2x/wk for 5 wks Duration These treatments will address the objective and functional deficits as defined above. The patient will be advanced safely and appropriately in order for the patient to progress towards his/her prior level of function. Additional exercises will be introduced and as well as a comprehensive home exercise program upon discharge, if needed, ?to ensure carryover of functional gains achieved in the clinic. This treatment plan has been reviewed and agreement upon by the patient.
--- NOTE | 2022-07-27 14:58 | PCPTNOTE ---
Patient called to cancel due to back being out.
--- NOTE | 2022-08-09 14:43 | PCPTNOTE ---
Patient did not show up for scheduled appointment this date.
--- NOTE | 2022-08-17 11:21 | PCPTNOTE ---
Patient called & cancelled scheduled appointment this date due to being unwell. Was reminded of next appointment and asked to call and cancel if not feeling well for that appointment.
--- NOTE | 2022-08-19 15:15 | PCPTNOTE ---
Patient arrived to therapy stating he has no energy and has not been sleeping. Patient also states he has not had an appetite as well. Patient presented with rattling in chest and occasional coughing. Patient presented more unsteady on feet this date as well. Patient could not recall if he was sick or had been sick lately. Patient measured 90% O2 level with sitting and 86-87% with ambulation. Patient required multiple rest break this date to ambulate more than 100 feet due to fatigue and shortness in breath. Therapist discussed with patient about O2 level concern and symptoms. Patient then was walked to urgent care to follow up on symptoms. Unable to see patient this date due to decreased O2 levels and above list symptoms.
--- NOTE | 2022-08-24 12:40 | PCPTNOTE ---
Patient called to cancel this date due to illness.
--- NOTE | 2022-08-26 13:38 | PCPTNOTE ---
Patient did not show up for scheduled appointment this date. Called pt to follow up, he has pneumonia, he states he is going to call back when he is feeling better.
--- NOTE | 2022-10-12 10:20 | PCPTNOTE ---
PHYSICAL THERAPY DISCHARGE SUMMARY Pt called on 08/24/22 to cancel his last appointment d/t being sick. He stated he would call when he is doing better. He has not called. Due to lack of attendance with no current visit scheduled he will be discharged at this time. If he needs additional therapy at a later date, he will need a new order.
== END 2022-09-07 23:59 | disposition home or self-care (01) ==
LOC: ANHGOSHPT 13:15
PROVIDERS: PCP Internal Medicine; Visit Provider Internal Medicine
DX: R26.81 Unsteadiness on feet (principal)
CPT/HCPCS: 97110; 97112; 97161; 97530; 99199

== ENCOUNTER 2022-08-19 13:46 | Emergency (ER) | payer MEDICARE, SELFPAY ==
--- NOTE | ~2022-08-19 | XR_ITS ---
XR chest 2V 08/19/2022 14:40 Indication: Shortness of breath and cough Procedure: 2 view chest Comparison: 02/25/2022 Findings: Cardiomegaly. There is bilateral airspace disease of the mid and lower lungs. There are sma ll pleural effusions. There is atherosclerosis. No pneumothorax. Impression: 1: Extensive airspace disease of the mid and lower lungs which has increased since prior examination, consistent with pneumonia. 2: Stable small pleural effusions. Reviewed, dictated and finalized at location A. TED HISTORY TOUR GUIDE Impression: 1: Extensive airspace disease of the mid and lower lungs which has increased si nce prior examination, consistent with pneumonia. 2: Stable small pleural effusions.
[2022-08-19 14:05] VITALS: BP 145/85; PULSE 83; RESP 24; TEMP 36.9; O2SAT 94
--- NOTE | 2022-08-19 14:25 | ED.URI ---
HPI - URI/Sore Throat General Chief Complaint: Upper Respiratory Infection Stated Complaint: SOB, low O2 Time Seen by Provider: 08/19/22 14:25 Source: patient Mode of arrival: ambulatory Limitations: no limitations History of Present Illness HPI Narrative: 81-year-old male presents with complaint of shortness of breath with exertion, fatigue, decreased appetite, cough and congestion in throat and chest. Reports symptoms for the past week. Afebrile. History of COPD. Using maintenance inhaler daily, started albuterol inhaler today. All systems reviewed and negative except as noted above. Related Data Home Medications Medication Instructions Recorded Confirmed fluticasone fur. 100 mcg-umeclid 1 inh inhalation DAILY 02/25/22 07/21/22 62.5 mcg-vilant 25 mcg inhalat.powder (Trelegy Ellipta) felodipine 2.5 mg tablet,extended 2.5 mg PO DAILY 07/21/22 07/21/22 release 24 hr glipizide 10 mg tablet, extended 20 mg PO DAILY 07/21/22 07/21/22 release 24 hr insulin glargine 100 See Rx Instructions .Route .COMPLEX 07/21/22 07/21/22 unit-lixisenatide 33 mcg/mL subcutaneous pen (Soliqua 100/33) albuterol sulfate 90 mcg/actuation inhalation 08/19/22 08/19/22 aerosol inhaler Allergies Allergy/AdvReac Type Severity Reaction Status Date / Time dapagliflozin [From [facility]] Allergy Intermediate rash, Verified 08/19/22 14:02 itching amlodipine Allergy Mild swollen Verified 08/19/22 14:02 legs, rash Review of Systems Review of Systems: CONSTITUTIONAL: Denies fever, chills, or sweats. Reports fatigue. EYES: Denies visual changes, redness, or discharge. ENT: Denies rhinorrhea, congestion, sore throat, or otalgia. CARDIOVASCULAR: Denies chest pain, palpitations, or edema. RESPIRATORY: Reports cough and dyspnea with exertion. GASTROINTESTINAL: Denies abdominal pain, nausea, vomiting, or diarrhea. GENITOURINARY: Denies dysuria or hematuria. SKIN: Denies rash or itching. MUSCULOSKELETAL: Denies back pain, joint pain, or myalgia. NEUROLOGIC: Denies headache, numbness, or weakness. PSYCHIATRIC: Denies anxiety or depression. All other systems reviewed are negative, except as documented in HPI. [facility] Past Medical History Medical History Bladder cancer Diagnosed 12/2019 BMI 36.0-36.9,adult Cataracts, bilateral Chronic back pain Chronic renal failure, stage 3 (moderate) COPD (chronic obstructive pulmonary disease) CPAP (continuous positive airway pressure) dependence GERD (gastroesophageal reflux disease) History of CVA with residual deficit History of rectal polyps HTN (hypertension) Hyperlipidemia Obesity Prostate cancer Sleep apnea Stroke Type 2 diabetes mellitus without complication, without long-term current use of insulin Surgical History Surgical History History of facial surgery Family History Family History Mother Cerebrovascular accident, Onset Age: 93 Patient's mother is Obesity Father Cerebrovascular accident, Onset Age: 84 Patient's father is Other Diabetes mellitus Family history of malignant neoplasm Hypertension Social History Social History Smoking packs per day: 1 Smoking cigarettes per day: 20.0 Years smoked: 44 Smoking pack-years: 44.00 Smoking status: Former smoker Tobacco type: cigarettes Second hand tobacco smoke exposure: No Smoking end date: 09/12/03 Alcohol intake: current Drinks per week: 10 Alcohol use details: BEER/WINE Substance use: never Additional living arrangements comments: - [facility] Gender identity (if verbalized by the patient): Male Spiritual care concerns: No Agree to blood products: No Comments At time of signature, agree with nursing past med
== END 2022-08-19 15:10 | disposition home or self-care (01) ==
PROVIDERS: Emergency Provider Nurse Practitioner Family; PCP Internal Medicine
DX: J18.9 Pneumonia, unspecified organism (principal); Z87.891 Personal history of nicotine dependence; J44.9 Chronic obstructive pulmonary disease, unspecified; K21.9 Gastro-esophageal reflux disease without esophagitis; E78.5 Hyperlipidemia, unspecified; Z85.46 Personal history of malignant neoplasm of prostate; Z85.51 Personal history of malignant neoplasm of bladder; H26.9 Unspecified cataract; I12.9 Hypertensive chronic kidney disease with stage 1 through stage 4 chronic kidney disease, or unspecified chronic kidney disease; E11.22 Type 2 diabetes mellitus with diabetic chronic kidney disease; N18.30 Chronic kidney disease, stage 3 unspecified; Z79.84 Long term (current) use of oral hypoglycemic drugs; I69.30 Unspecified sequelae of cerebral infarction
CPT/HCPCS: 71046; 99213; G0463

== ENCOUNTER 2022-09-16 03:40 | Outpatient (CLI) | payer MEDICARE, SELFPAY ==
--- NOTE | 2022-09-02 12:15 | PC.NURSE ---
Pre Radiology instructions Report to the outpatient [facility] on date _09/16/22 AT 0730____ Procedure Time: _929___ YOU MAY BE MONITORED AT HOSPITAL FOR UP TO 4 HOURS AFTER YOUR PROCEDURE. A visitors will be allowed to accompany the patient into the hospital. ?The visitor will be instructed to remain with patient at all times or leave the building due to restrictions.? We will allow the visitor to come back to the postoperative area when patient is ready.? NO children visitors allowed at this time. You and your visitor will be asked to self-screen and do not enter if you have any COVID symptoms. A mask is OPTIONAL within the hospital. Patients are to have no food or drink 6 hours prior to procedure time Driving will be restricted after the procedure, you must have a person to drive you home. Labs will be drawn in preop area and once reviewed, you will be taken to radiology area for procedure. When the procedure is completed, you will be taken to outpatient where you will be monitored for several hours. You may have one visitor in this area. Other than holding anti-coagulants, patient may take other medication(s) as scheduled. Prior to your appointment date patients are instructed to hold anti-coagulants after discussing with ordering provider to stop. If unable to discontinue anti-coagulants please notify radiologist. ? No aspirin or warfarin (Coumadin) for 7 days prior to the procedure. ? No clopidogrel (Plavix), ticagrelor (Brilinta), prasugrel (Effient) or dabigatran (Pradaxa) for 5 days prior to the procedure. ? No rivaroxaban (Xarelto), apixaban (Eliquis), dipyridamole (Aggrenox or Persantine) or cilostazol (Pletal) for 2 days prior to the procedure. Medications to discontinue per physician: __NONE Date to take last dose: Please leave all valuables, including medications, at home the day of procedure. The hospital will not accept responsibility for valuables. Wear comfortable, loose fitting clothing.? Follow any additional instructions given to you from ordering provider. Telephone instructions given to ___PATIENT and asked if any additional questions and then verbalized understanding. Patient advised to call scheduling provider office or registration scheduling [phone] if any additional questions.
[2022-09-02 12:18] VITALS: BMI 33.5
[2022-09-16] VITALS (8 sets, daily range): BP systolic 176–198; BP diastolic 83–101; PULSE 62–86; RESP 16–18; TEMP 36.4; O2SAT 94–98
--- NOTE | ~2022-09-16 | CT_ITS ---
EXAMINATION: CT bx lymph node DATE: 09/16/2022 09:57 INDICATION: Retroperitoneal lymphadenopathy. TECHNIQUE: The procedure including the risks, benefits, and alternatives was discussed with the patie nt. Risks discussed included bleeding and infection. The patient verbalized understanding of the risk s and agreed to proceed. The skin overlying the liver was prepped and draped in usual sterile fashio n. Anesthetic was administered with 1% lidocaine subcutaneously. A 16 gauge outer needle was advanc ed under CT guidance to the left paracolic lymph node. An 18 gauge core biopsy needle was then used t o obtain 7 core biopsy specimens. The mA was adjusted according to patient size. Iterative reconstruc tion technique was employed. The dose-length product was 178.30 mGy-cm. The needle was removed and th e entry site was cleaned and dressed. There were no immediate complications. FINDINGS: CT images demonstrate the outer needle tip adjacent to a 4.2 x 3.5 cm left para-aortic lymp h node. IMPRESSION: 1. CT-guided core needle biopsy of an enlarged left para-aortic lymph node. Reviewed, dictated and finalized at location A. DANCER
[2022-09-16 08:06] LABS: Mean Platelet Volume 9.1 fl (7.4-10.4); Platelet Count Result 255 k/mm3 (150-375)
[2022-09-16 08:07] LABS: Glucose Point of Care 133 mg/dl (65-105)
[2022-09-16] MEDS: SODIUM CHLORIDE 0.9% IV 1,000 ML 30 ML IV CONT (08:15)
[2022-09-16 08:26] LABS: Prothrombin Time 12.5 Seconds (11.1-14.7)
[2022-09-16 10:08] LABS: Glucose Point of Care 122 mg/dl (65-105)
--- NOTE | 2022-09-16 10:39 | SUR.PHASEII ---
RN called Dr. June and made him aware of patient's elevated BP. Patient stated, I didn't take my BP meds this AM. RN will instruct patient to take medicine when he gets home.
== END 2022-09-16 12:05 | disposition home or self-care (01) ==
PROVIDERS: PCP Internal Medicine; Referring Provider Internal Medicine Hematology & Oncology; Visit Provider Radiology Diagnostic Radiology
PROC: (CPT 76942; principal; 2022-09-16 09:30)
DX: R59.0 Localized enlarged lymph nodes (principal)
CPT/HCPCS: 36415; 38505; 82948; 85049; 85610; 88305; 88342; J7030

== ENCOUNTER 2022-09-20 14:07 | Outpatient (CLI) | payer MEDICARE, SELFPAY ==
--- NOTE | ~2022-09-20 | XR_ITS ---
EXAMINATION: XR lumbar spine 6V w bending DATE: 09/20/2022 14:35 INDICATION: Low back pain TECHNIQUE: Anteroposterior, lateral in neutral, flexion and extension, and bilateral oblique views of the lumbar spine, and cone-down lateral view of the lumbosacral junction were obtained. COMPARISON: CT, 06/07/2022 FINDINGS: There are 5 mm of anterolisthesis of L4 on L5. No hypermobility is present with flexion or extension. The vertebral body heights are maintained. There is no fracture. There is severe loss of i ntervertebral disc space height at L2-3 and moderate loss of intervertebral disc space height at L3-4 and L4-5. Small degenerative osteophytes project from the anterior endplates of multiple vertebral b odies. 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 Calcified atherosclero sis is noted. Brachytherapy seeds are noted at the prostate. IMPRESSION: 1. Moderate to severe lumbar spondylosis without acute findings. Reviewed, dictated and finalized at location L. D MARKETING COORDINATOR
== END 2022-09-20 14:08 | disposition home or self-care (01) ==
PROVIDERS: PCP Internal Medicine; Visit Provider Physician Assistant
DX: M47.896 Other spondylosis, lumbar region (principal)
CPT/HCPCS: 72114

== ENCOUNTER 2022-09-30 12:31 | Outpatient (CLI) | payer MEDICARE, SELFPAY ==
[2022-09-30 14:54] LABS: Basophils Absolute Auto 0.1 K/mm3 (0.0-0.1); Basophils Percent Auto 0.5 % (0.2-1.2); Eosinophils Absolute Auto 0.1 K/mm3 (0-0.3); Eosinophils Percent Auto 1.1 % (0-4.4); Hematocrit 38.2 % (42.0-52.0); Hemoglobin 12.5 g/dL (14.0-18.0); Immature Granulocyte Absolute 0.05 K/mm3 (0.00-0.031); Immature Granulocyte Percent A 0.5 % (0-0.5); Lymphocytes Absolute Auto 1.57 K/mm3 (0.9-3.2); Mean Corpuscular HGB Conc 32.7 g/dl (32-36); Mean Corpuscular Hemoglobin 31.7 pg (26-34); Mean Platelet Volume 9.3 fl (7.4-10.4); Monocytes Absolute Auto 0.7 K/mm3 (0.1-0.6); Neutrophils Absolute Auto 7.3 K/mm3 (1.3-6.7); Neutrophils Percent Auto 74.9 % (45.5-73.1); Platelet Count Result 348 k/mm3 (150-375); Red Blood Count 3.94 M/mm3 (4.6-6.20); Red Cell Distribution Width 13.3 % (11.5-14.5); White Blood Count 9.8 K/mm3 (4.5-10.0)
[2022-09-30 15:05] LABS: Anion Gap 5 mmol/L (8-16); Blood Urea Nitrogen 32 mg/dL (9-20); Calcium 8.7 mg/dL (8.4-10.2); Carbon Dioxide 31 mmol/L (22-30); Chloride 100 mmol/L (98-107); Estimated Glomerular Filt Rate 39; Glucose 311 mg/dL (65-110); Potassium 4.6 mmol/L (3.4-5.0); Sodium 136 mmol/L (137-145)
[2022-09-30 15:21] LABS: Partial Thromboplastin Time 27.5 SECONDS (22.3-36.8)
== END 2022-09-30 12:32 | disposition home or self-care (01) ==
LOC: ANHSURGERY 12:34
PROVIDERS: Anesthesiology; PCP Internal Medicine; Visit Provider Surgery
DX: C67.8 Malignant neoplasm of overlapping sites of bladder (principal); E11.9 Type 2 diabetes mellitus without complications; Z01.818 Encounter for other preprocedural examination
CPT/HCPCS: 36415; 80048; 85025; 85730

== ENCOUNTER 2022-10-04 01:14 | Day surgery (SDC) | payer MEDICARE, SELFPAY ==
[2022-09-29 13:11] VITALS: BMI 33.8
--- NOTE | 2022-09-29 13:37 | PC.NURSE ---
Report to the Outpatient Waiting Room, entrance under the green pavilion located off [facility], at time __9:00AM on date ___10/04/22____. Planned Procedure Time: __11:00AM . Time changes happen often and if your time is changed the preop area will call you the afternoon before. - You and your visitor will be asked to self-screen and do not enter if you have any COVID symptoms. - Only one visitor is requested with a max of two and NO children visitors are allowed at this time. - The patient visitor may be requested to leave or wait in car when not with patient due to distancing restrictions. - A mask is optional within the hospital. Patients may have clear liquids (water, carbonated beverages, clear teas, apple juice) until 3 hours prior to surgery with a maximum of 20 ounces. - No food from midnight until time of surgery Take the following medications with a SIP of water the morning of surgery: ___FELODIPINE, METOPROLOL, TRELEGY ELLIPTA AND ALBUTEROL INHALER OR NEBULIZER NEEDED____ Medications to discontinue per physician __NONE Please no make-up, nail [place]er, hairspray, perfume, deodorant, or body powder the day of surgery. No jewelry (including any body piercings) or valuables the day of surgery, leave them at home. Please take a shower or bath the night before, or the morning of, surgery with an antibacterial soap. Wear comfortable, loose fitting clothing. Children are encouraged to wear pajamas. - Jewelry must be removed prior to entering the operating room. Rings and piercings that are not removed may be cut off. - The hospital will not accept responsibility for valuables. - Please leave all valuables, including medications, at home the day of surgery. If you are going home after surgery, a licensed gravel truck driver must drive you home. - NO public transportation without another adult if you receive anesthesia. - We recommend that an adult stay with you for 24 hours following discharge. - We also recommend that you do not drive, make important decision, drink alcoholic beverages, or take any drugs that were not prescribed by your health care provider for at least 24 hours after your discharge time. Follow any additional instructions given to you from your surgeon. If you or anyone in your household have experienced Covid symptoms in the past week, please notify your surgeon or the nurse liaison at the phone number below for possible testing. Telephone instructions given to __PATIENT and asked if any additional questions and then verbalized understanding. Patient advised to call surgeon office or pre surgery nurse liaison [phone] if any additional questions.
--- NOTE | ~2022-10-04 | XR_ITS ---
EXAMINATION: XR chest port-a-cath/central DATE: 10/04/2022 12:05 INDICATION: Left-sided port catheter insertion TECHNIQUE: frontal view of the chest was obtained. COMPARISON: Chest radiograph dated 08/19/2022 FINDINGS: Left internal jugular central venous port catheter with distal tip projecting over the left brachioce phalic vein. Persistent opacities at the bilateral lower lung zones. No pneumothorax. Heart size is n ormal. The cardiomediastinal silhouette is normal. Visualized bones and soft tissues are unremarkable . IMPRESSION: 1. Left internal jugular central venous port catheter tip at the left brachiocephalic vein. 2. Persistent opacities in the bilateral lower lung zones which could represent atelectasis/scarring, pneumonia, small bilateral pleural effusions or some combination thereof. Reviewed, dictated and finalized at location B. SHIFT MANAGER IMPRESSION: 1. Left internal jugular central venous port catheter tip at the left brachioce phalic vein. 2. Persistent opacities in the bilateral lower lung zones which could represent atelectasis/scarring, pneumonia, small bilateral pleural effusions or some com bination thereof.
--- NOTE | ~2022-10-04 | XR_ITS ---
EXAMINATION: XR fl guide central line place DATE: 10/04/2022 11:53 INDICATION: Left-sided port catheter insertion TECHNIQUE: A single fluoroscopic image of the central chest was obtained during procedure performed b qian Bartholomew. Radiologist was not present for the imaging or procedure. The amount of fluoroscopy time used during this procedure was 1.1 minutes. COMPARISON: None. FINDINGS/IMPRESSION: Fluoroscopy utilized during placement of a central venous catheter with distal tip projecting over th e cephalad superior vena cava. See procedure note for further detail. Reviewed, dictated and finalized at location B. E TEACHER
[2022-10-04] MEDS: LACTATED RINGERS 1,000 ML 30 ML IV CONT (09:40)
[2022-10-04] MEDS: KETOROLAC 15 MG/ML VIAL (*BKC) IV PUSH (09:50)
[2022-10-04 09:51] VITALS: BP 153/74; PULSE 74; RESP 16; TEMP 36.9; O2SAT 96
[2022-10-04 09:51] LABS: Glucose Point of Care 169 mg/dl (65-105)
--- NOTE | 2022-10-04 09:51 | PM.IMHP ---
H&P: HPI History of Present Illness Date/Time: 10/04/22 09:51 Chief Complaint: metastatic bladder cancer Narrative: Pt is a 81 y/o M c metastatic bladder cancer needing access for chemotherapy. Pt denies any known previous central venous catheterization. Pt is right handed. Review of Systems Review of Systems: All systems reviewed & are unremarkable except as noted in HPI and below PMFSH Past Medical History Medical History Bladder cancer Diagnosed 12/2019 BMI 36.0-36.9,adult Cataracts, bilateral Chronic back pain Chronic renal failure, stage 3 (moderate) COPD (chronic obstructive pulmonary disease) CPAP (continuous positive airway pressure) dependence GERD (gastroesophageal reflux disease) History of CVA with residual deficit History of rectal polyps HTN (hypertension) Hyperlipidemia Obesity Prostate cancer Sleep apnea Stroke Type 2 diabetes mellitus without complication, without long-term current use of insulin Surgical History Surgical History History of facial surgery Family History Family History Mother Cerebrovascular accident, Onset Age: 93 Patient's mother is Obesity Father Cerebrovascular accident, Onset Age: 84 Patient's father is Other Diabetes mellitus Family history of malignant neoplasm Hypertension Social History Social History Smoking packs per day: 1 Smoking cigarettes per day: 20.0 Years smoked: 45 Smoking pack-years: 45.00 Smoking status: Former smoker Tobacco type: cigarettes Second hand tobacco smoke exposure: No Smoking end date: 03/12/04 Alcohol intake: current Drinks per week: 14 Alcohol use details: 2 SHOTS/DAY Substance use: never Lack of Transportation: No Lack of Food: Never True Current Housing: I Have Housing Difficulty Paying Gas/Electric Bills: No Difficulty Paying for Meds: No Currently Unemployed: No Education: Decline to Answer Difficulty w/ Childcare or Family Care: Decline to Answer Living arrangements: alone Additional living arrangements comments: - EMILY Gender identity (if verbalized by the patient): Male Spiritual care concerns: No Agree to blood products: No Meds Home Medications and Allergies Home Medications Medication Instructions Recorded Confirmed Type blood sugar diagnostic ([email or web address].[email or web address] #300 ea 09/01/20 09/09/22 Rx Ultra Blue Test Strip) hydrochlorothiazide 25 mg tablet 25 mg PO QAM #90 tabs 08/05/21 10/04/22 Rx fluticasone fur. 100 mcg-umeclid 1 inh inhalation QAM 02/25/22 10/04/22 History 62.5 mcg-vilant 25 mcg inhalat.powder (Trelegy Ellipta) pen needle, diabetic 32 gauge x #100 ea 05/27/22 09/09/22 Rx /32 (BD Ultra-Fine Kaelyn Pen Needle) lancets 30 gauge (OneTouch Delica #200 ea 06/08/22 09/09/22 Rx Plus Lancet) felodipine 2.5 mg tablet,extended 2.5 mg PO QAM 07/21/22 10/04/22 History release 24 hr glipizide 10 mg tablet, extended 10 mg PO QAM 07/21/22 10/04/22 History release 24 hr insulin glargine 100 21 unit subcut QAM 07/21/22 10/04/22 History unit-lixisenatide 33 mcg/mL subcutaneous pen (Soliqua 100/33) simvastatin 40 mg tablet 40 mg PO HS #90 tabs 07/22/22 10/04/22 Rx albuterol sulfate 90 mcg/actuation 2 puff inhalation PRN PRN 08/19/22 10/04/22 History aerosol inhaler Shortness Of Breath albuterol sulfate 2.5 mg/3 mL 2.5 mg (3 mL) inhalation Q6H PRN 08/24/22 10/04/22 Rx (0.083 %) solution for nebulization shortness of breath or wheezing #75 mL irbesartan 300 mg tablet 300 mg PO HS #90 tabs 08/24/22 10/04/22 Rx acetaminophen 500 mg tablet 1,000 mg PO Q6H PRN Pain 09/29/22 10/04/22 History (Acetaminophen Extra Strength) metoprolol tartrate 50 mg tablet 50 mg PO QAM 0
--- NOTE | 2022-10-04 09:53 | WPDHPUPDATE1 ---
History and Physical Update Update Date/Time: 10/04/22 09:53 History and Physical has been reviewed, including an updated exam of the patient. There are NO changes in the patient's condition. Risks, benefits, and alternatives have been discussed and questions answered. Patient agrees to proceed with procedure.
--- NOTE | 2022-10-04 10:32 | WPDANESEPPF ---
Anes - Initial Pre Proc Eval Procedure: Operation Date: 10/04/22 11:00 Proposed Procedures p Insertion Blake Cath - Shruti Bartholomew MD Date/Time: 10/04/22 10:32 Surgeon: Shruti Bartholomew MD Pre Op Diagnosis: Malignant Neoplasm overlapping sites of Bladder Patient Data Age: 81 Gender: M Height: 1.8 m Weight: 102 kg Last Vital Signs Temp 98.4 F 10/04/22 09:51 Pulse 74 10/04/22 09:51 Resp 16 10/04/22 09:51 BP 153/74 H 10/04/22 09:51 Pulse Ox 96 10/04/22 09:51 O2 Del Method Room Air 10/04/22 09:51 Allergies Allergy/AdvReac Type Severity Reaction Status Date / Time dapagliflozin [From [facility]] Allergy Intermediate rash, Verified 09/29/22 13:05 itching amlodipine Allergy Mild swollen Verified 09/29/22 13:05 legs, rash Home Medications Medication Instructions Recorded Confirmed Type blood sugar diagnostic (Access SystemsTouch #300 ea 09/01/20 09/09/22 Rx Ultra Blue Test Strip) hydrochlorothiazide 25 mg tablet 25 mg PO QAM #90 tabs 08/05/21 10/04/22 Rx fluticasone fur. 100 mcg-umeclid 1 inh inhalation QAM 02/25/22 10/04/22 History 62.5 mcg-vilant 25 mcg inhalat.powder (Trelegy Ellipta) pen needle, diabetic 32 gauge x #100 ea 05/27/22 09/09/22 Rx 5/32 (BD Ultra-Fine Kaelyn Pen Needle) lancets 30 gauge (Access SystemsTouch Delica #200 ea 06/08/22 09/09/22 Rx Plus Lancet) felodipine 2.5 mg tablet,extended 2.5 mg PO QAM 07/21/22 10/04/22 History release 24 hr glipizide 10 mg tablet, extended 10 mg PO QAM 07/21/22 10/04/22 History release 24 hr insulin glargine 100 21 unit subcut QAM 07/21/22 10/04/22 History unit-lixisenatide 33 mcg/mL subcutaneous pen (Soliqua 100/33) simvastatin 40 mg tablet 40 mg PO HS #90 tabs 07/22/22 10/04/22 Rx albuterol sulfate 90 mcg/actuation 2 puff inhalation PRN PRN 08/19/22 10/04/22 History aerosol inhaler Shortness Of Breath albuterol sulfate 2.5 mg/3 mL 2.5 mg (3 mL) inhalation Q6H PRN 08/24/22 10/04/22 Rx (0.083 %) solution for nebulization shortness of breath or wheezing #75 mL irbesartan 300 mg tablet 300 mg PO HS #90 tabs 08/24/22 10/04/22 Rx acetaminophen 500 mg tablet 1,000 mg PO Q6H PRN Pain 09/29/22 10/04/22 History (Acetaminophen Extra Strength) metoprolol tartrate 50 mg tablet 50 mg PO QAM 09/29/22 10/04/22 History Laboratory Tests 10/04/22 09:48 POC Capillary Glucose 169 mg/dl H mg/dl (65-105) Patient hx anesthesia problems: none Family hx anesthesia problems: none Results Review: All pre-operative results and documents have been reviewed as part of the pre-operative evaluation. [facility] Past Medical History Medical History Bladder cancer Diagnosed 12/2019 BMI 36.0-36.9,adult Cataracts, bilateral Chronic back pain Chronic renal failure, stage 3 (moderate) COPD (chronic obstructive pulmonary disease) CPAP (continuous positive airway pressure) dependence GERD (gastroesophageal reflux disease) History of CVA with residual deficit History of rectal polyps HTN (hypertension) Hyperlipidemia Obesity Prostate cancer Sleep apnea Stroke Type 2 diabetes mellitus without complication, without long-term current use of insulin Surgical History Surgical History History of facial surgery Family History Family History Mother Cerebrovascular accident, Onset Age: 93 Patient's mother is Obesity Father Cerebrovascular accident, Onset Age: 84 Patient's father is Other Diabetes mellitus Family history of malignant neoplasm Hypertension Social History Social History Smoking packs per day: 1 Smoking cigarettes per day: 20.0 Years smoked: 45 Smoking pack-years: 45.00 Smoking status: Former smoker Tobacco type: cigarette
--- NOTE | 2022-10-04 11:06 | ECG_ITS ---
Measurements Intervals [place] Rate: 67 P: 27 AL: 175 QRS: 53 QRSD: 103 T: 53 QT: 410 QTc: 434 Interpretive Statements SINUS RHYTHM VENTRICULAR PREMATURE COMPLEX BORDERLINE ECG COMPARED TO ECG 05/03/2022 08:02:55 NO SIGNIFICANT CHANGES Electronically Signed On 10-04-2022 13:00:10 DIRECTOR OF NURSES REGISTRY by Leland Day D.O.
[2022-10-04] MEDS: ceFAZolin 2 GM/D5W 50 ML 2 GM/50 ML BAG IVPB (11:10)
[2022-10-04] MEDS: HEPARIN SODIUM 5,000 UNITS/ML VIAL 5000 UNITS IRRIGATION (11:32)
[2022-10-04] MEDS: BUPIVACAINE/EPINEPHRINE 0.5% 30 ML VIAL INFILTRATE (11:32)
[2022-10-04] MEDS: HEPARIN SODIUM, PORCINE 10,000 UNITS/10 ML VIAL 10000 UNITS IRRIGATION (11:47)
--- NOTE | 2022-10-04 11:53 | W.PM.PROC2 ---
Procedure Note - Detailed Date of Procedure 10/04/22 Pre-op Diagnosis Metastatic bladder cancer Post-op Diagnosis Same Procedure Performed Placement of left internal jugular venous access device under both ultrasound and fluoroscopic guidance Surgeon Shruti Bartholomew MD Anesthesia General and Local Indications 81-year-old male with metastatic bladder cancer needing access for adjuvant chemotherapy Findings L SCV difficult angle given large clavicle, 1st stick left IJ using U/S Description of Procedure Patient was brought into the operating room and placed in the supine position. After adequate induction of general anesthesia, the patient was prepped and draped in normal sterile fashion. Time-out was then done to verify the patient's identity, as well as the procedure being performed. I began by making a small incision in the left chest. Initially, I was going to use the left subclavian vein, but given a very large clavicle decision was made to use LIJ. I then used the ultrasound to gain access into the left internal jugular vein. Once access was gained, I placed the guidewire in the vein and confirmed proper positioning. I then locally anesthetized the area in the left chest. I then enlarged the incision including making a subcutaneous pocket inferiorly to allow placement of the port itself. I proceeded to tunnel the catheter from the chest to the left neck insertion site. I then placed a dilating sheath over the guidewire into the left internal jugular vein via sterile Seldinger technique. This was once again done and confirmed via fluoroscopic guidance. I then removed the dilator and the guidewire, now just leaving the sheath in the vein. I then fed the previously flushed catheter into the left internal jugular vein under fluoroscopic guidance. At approximately 25 cm, the catheter was noted to be near the atrial caval junction. I then peeled away the sheath, now just leaving the catheter in the vein. I then was able to easily draw and flush from the catheter. The catheter was cut to fit and attached to the port itself. The port was placed into the previously made subcutaneous pocket and sutured in with 0 Ethibond suture. Final fluoroscopic view showed the termination of the catheter at the atrial caval junction with a nice smooth curvature back to the port itself. I was able to gain access to the port with a Rodriguez needle and was able to easily draw and flush from the port. I then flushed 4 cc of a final heparin flush into the port. The incision was closed with 3 0 Vicryl suture in the subcutaneous tissue and the skin was closed with 4 O Monocryl subcuticular suture. Dermabond was then placed on wound. The patient tolerated the procedure well and will be sent to the recovery room in stable condition. Implants left internal jugular venous access device Estimated Blood Loss 5 Pathology None sent Complications No immediate complications Condition Stable Disposition PACU [facility] Billing Surgery - Charge Forward: Surgery Billing
[2022-10-04 11:55] VITALS: BP 144/60; PULSE 83; RESP 12; O2SAT 93
[2022-10-04 12:06] LABS: Glucose Point of Care 163 mg/dl (65-105)
[2022-10-04 12:25] VITALS: BP 141/79; PULSE 70; RESP 16
== END 2022-10-04 13:00 | disposition home or self-care (01) ==
PROVIDERS: PCP Internal Medicine; Visit Provider Surgery
PROC: (CPT 36561; principal; 2022-10-04 11:00)
DX: C67.8 Malignant neoplasm of overlapping sites of bladder (principal); I12.9 Hypertensive chronic kidney disease with stage 1 through stage 4 chronic kidney disease, or unspecified chronic kidney disease; E11.22 Type 2 diabetes mellitus with diabetic chronic kidney disease; N18.30 Chronic kidney disease, stage 3 unspecified; E78.5 Hyperlipidemia, unspecified; K21.9 Gastro-esophageal reflux disease without esophagitis; G47.30 Sleep apnea, unspecified; Z86.73 Personal history of transient ischemic attack (TIA), and cerebral infarction without residual deficits; Z85.46 Personal history of malignant neoplasm of prostate; Z87.891 Personal history of nicotine dependence; E66.9 Obesity, unspecified; Z68.31 Body mass index [BMI] 31.0-31.9, adult; Z79.84 Long term (current) use of oral hypoglycemic drugs; Z79.4 Long term (current) use of insulin; Z79.51 Long term (current) use of inhaled steroids
CPT/HCPCS: 36561; 36415; 77001; 80048; 82948; 85025; 85730; 93005; C1788; J0330; J0690; J1644; J1885; J2405; J2704; J3010; J7030; J7120

== ENCOUNTER 2022-11-22 11:38 | Outpatient (CLI) | payer MEDICARE, SELFPAY ==
[2022-11-22 13:00] LABS: Albumin Level 3.6 g/dL (3.5-5.1); Anion Gap 3 mmol/L (8-16); Blood Urea Nitrogen 43 mg/dL (9-20); Calcium 8.5 mg/dL (8.4-10.2); Carbon Dioxide 29 mmol/L (22-30); Chloride 102 mmol/L (98-107); Estimated Glomerular Filt Rate 42; Glucose 205 mg/dL (65-110); Phosphorus 3.5 mg/dL (2.5-4.5); Potassium 4.4 mmol/L (3.4-5.0); Sodium 134 mmol/L (137-145)
[2022-11-22 13:17] LABS: Parathyroid Intact 257.9 pg/mL (7.5-53.5)
[2022-11-22 13:18] LABS: Vitamin D 25 Hydroxy 20.8 ng/mL
[2022-11-22 13:58] LABS: Creatinine Urine 71.5 mg/dL
[2022-11-22 14:34] LABS: Total Protein Urine Random 539 mg/dL; Ur Ttl Prot Creatinine Ratio 7.54 mg/mg (0-0.20)
== END 2022-11-22 11:39 | disposition home or self-care (01) ==
LOC: ANHLAB 11:41
PROVIDERS: PCP Internal Medicine; Visit Provider Internal Medicine Nephrology
DX: E11.22 Type 2 diabetes mellitus with diabetic chronic kidney disease (principal); I12.9 Hypertensive chronic kidney disease with stage 1 through stage 4 chronic kidney disease, or unspecified chronic kidney disease; N18.4 Chronic kidney disease, stage 4 (severe)
CPT/HCPCS: 36415; 80069; 82306; 82570; 83970; 84156

== ENCOUNTER 2023-01-25 14:17 | Outpatient (CLI) | payer MEDICARE, SELFPAY ==
--- NOTE | ~2023-01-25 | XR_ITS ---
EXAMINATION: XR finger 2nd RT min 2V DATE: 01/25/2023 14:39 INDICATION: Right hand second digit pain and injury and swelling. TECHNIQUE: 4 views of right hand second digit were obtained. COMPARISON: None. FINDINGS: Bone alignment is normal. No fracture. There is mild osteoarthritis of second distal interp halangeal joint and first carpometacarpal joint. There are erosions of the head of second middle phal anx. IMPRESSION: 1. Mild polyarticular osteoarthritis. 2. Erosions of the head of second middle phalanx suspicious for inflammatory arthropathy such as gout . Reviewed, dictated and finalized at location A. IMPRESSION: 1. Mild polyarticular osteoarthritis. 2. Erosions of the head of second middle phalanx suspicious for inflammatory ar thropathy such as gout.
== END 2023-01-25 14:18 | disposition home or self-care (01) ==
PROVIDERS: PCP Internal Medicine; Visit Provider Physician Assistant
DX: M79.644 Pain in right finger(s) (principal); M19.041 Primary osteoarthritis, right hand
CPT/HCPCS: 73140

== ENCOUNTER 2023-02-01 09:30 | Outpatient (CLI) | payer MEDICARE, SELFPAY ==
--- NOTE | ~2023-02-01 | PE_ITS ---
EXAMINATION: PET skull to mid thigh DATE: 02/01/2023 11:28 INDICATION: Malignant neoplasm of overlapping sites of bladder TECHNIQUE: Blood glucose level was 193 mg/dL. 8.762 mCi of 18-fluorodeoxyglucose (18-FDG) was adminis tered i.v. Low dose computed tomography (CT) images were acquired from the base of the brain to the p roximal thighs for attenuation correction and anatomic localization. Positron emission tomography (PE T) images were acquired in the same distribution beginning 47 minutes after injection. Images includi ng fused PET/CT images were reconstructed in axial, coronal, and sagittal planes. Automated exposure control technique was employed. The dose-length product was 851.06mGy-cm. COMPARISON: CT abdomen and pelvis dated 06/07/[address] guided biopsy dated 09/16/2022 FINDINGS: Head/neck: There is symmetric increased activity in the oral cavity, lingual tonsils, laryngeal muscles and ocul ar muscles without CT correlate, likely physiologic. No pathologically enlarged cervical lymphadenopa thy or suspicious foci of increased FDG uptake in the visualized head or neck. Chest: No significant interval change in approximately 4.6 x 3.4 cm region of pleural-based round atelectasi s with associated volume loss and architectural distortion in the posterior medial aspect of the left lower lobe. Additional unchanged pattern of more linear and bandlike peripheral atelectasis/scarring in the bilateral mid to lower lungs. Mild groundglass opacities and smooth septal line thickening at the bilateral lung bases which could represent mild pulmonary edema and/or atelectasis versus less l ikely pneumonia. No pleural effusion. Cardiomegaly. Atherosclerotic coronary artery calcific lesion. No pericardial effusion. Aortic valve calcification and fusiform aneurysmal ascending thoracic aorta which measures up to 4.6 cm maximal transaxial dimension. Small sliding-type hiatal hernia. No pathol ogically enlarged or FDG avid thoracic lymphadenopathy. Left internal jugular central venous port cat heter with distal tip at the left brachiocephalic vein. Abdomen/pelvis/proximal thighs: Physiologic renal accumulation and excretion of FDG activity in the kidneys, bladder and along portio ns of ureters. Persistent mild right hydroureter which extends to the distal most right ureter which maintains a similar expanded outer diameter but without corresponding intraluminal dilation as eviden cynthia by marked decrease in the amount of excreted FDG activity relative to the more proximal ureter in which suggests a persistent central filling defect consistent with likely residual/recurrent bladder cancer. The maximal SUV of this location is 3.6 however this could also include activity related to the excreted urine. Multiple brachytherapy seeds at the prostate. Normal degree and heterogenous ace roldan of increased uptake throughout the liver without radiologic correlate or dominant FDG avid lesion . The gallbladder, spleen and bilateral adrenal glands are normal. Scattered punctate dystrophic panc reatic parenchymal calcifications consistent with sequela of chronic pancreatitis. Mild uptake scatte red throughout the bowels without radiologic correlate, also likely physiologic. There were multiple mildly enlarged and mildly FDG avid retroperitoneal lymph nodes, the most cephala d along the left side of the origin of the superior mesenteric artery and extending caudally to a rig ht iliac chain lymph node at level of the bifurcation. Several of these lymph nodes appear enlarged r elative to the most recent outside institution CT performed on 06/07/2022. The left paracolic lymph no de biopsied on 09/16/2022 however has decreased in size since the time of biopsy. This lymph node measu red 1.7 x 1.4 similar on 06/07/2022, increased to 3.9 x 3.3 cm at the time of the biopsy on 09/16/2022 a nd currently measures 1.7 x 1.3 cm with maximal SUV of 2.5. The retroperitoneal lymph node wi
[2023-02-01 09:55] LABS: Glucose Point of Care 193 mg/dl (65-105)
== END 2023-02-01 09:31 | disposition home or self-care (01) ==
PROVIDERS: PCP Internal Medicine; Visit Provider Internal Medicine Hematology & Oncology
DX: C67.8 Malignant neoplasm of overlapping sites of bladder (principal)
CPT/HCPCS: 78815; A9552

== ENCOUNTER 2023-04-04 09:55 | Outpatient (RCR) | payer MEDICARE, SELFPAY ==
[2023-04-04 10:32] VITALS: BMI 31.4
== END 2023-07-03 23:59 | disposition home or self-care (01) ==
LOC: ANHWOC 09:55
PROVIDERS: PCP Internal Medicine; Visit Provider Nurse Practitioner Family
DX: L98.499 Non-pressure chronic ulcer of skin of other sites with unspecified severity (principal)
CPT/HCPCS: 99213; G0463

== ENCOUNTER 2023-04-07 21:40 | Inpatient (IN) | payer MEDICARE, SELFPAY ==
--- NOTE | ~2023-04-07 | CT_ITS ---
CT head without contrast Indication: Altered mental status COMPARISON: 08/17/2019 Technique: Serial scans were obtained through the brain without the administration of contrast. Dose reduction technique was used on this scan by utilizing automated exposure control and iterative recon struction technique. The dose-length product (DLP) was 756.67 mGy-cm. Findings: There is no evidence of intracranial hemorrhage, mass lesion, or acute infarct. Small chron ic lacunar infarcts are noted in the left basal ganglia and right thalamus. The ventricles and subara chnoid spaces are dilated, consistent with mild atrophy. Low attenuation regions are seen within the periventricular white matter bilaterally, likely representing changes from chronic microvascular isc hemic disease. There is no evidence of edema, mass effect or midline shift. The visualized paranasa l sinuses and mastoid air cells are clear. Impression: No intracranial hemorrhage, mass, or acute infarct. Small chronic lacunar infarcts, as above. Atrophy and chronic white matter changes, as above. Reviewed, dictated and finalized at location . Impression: No intracranial hemorrhage, mass, or acute infarct. Small chronic lacunar infarcts, as above. Atrophy and chronic white matter changes, as above.
--- NOTE | ~2023-04-07 | US_ITS ---
EXAMINATION: US renal BI DATE: 04/09/2023 14:07 INDICATION: wiley TECHNIQUE: Multiple grayscale and Doppler ultrasound images of the kidneys were obtained. COMPARISON: 09/30/2021 FINDINGS: The right kidney measures 11.5 x 5.1 x 5.8 cm. The left kidney measures 11.4 x 4.6 x 5.9 cm. The kidn eys demonstrate normal parenchymal echogenicity. There is mild right hydronephrosis. The bladder is i ncompletely distended and therefore not well evaluated. IMPRESSION: Mild right hydronephrosis. Reviewed, dictated and finalized at location K. IMPRESSION: Mild right hydronephrosis.
--- NOTE | ~2023-04-07 | US_ITS ---
Procedure: Duplex Doppler examination of the bilateral carotids. Indication: Strokelike symptoms Technique: Real time, color-flow and pulse wave Doppler examination of the bilateral carotids was performed. Findings: Stevens scale ultrasonography of the right neck demonstrated no significant plaque. There was demonstrat ion of normal color-flow and Doppler waveforms within the right common, internal and external carotid arteries. The peak systolic velocities in the right common, internal and external carotid arteries w ere demonstrated to be 96 cm/sec, 65 cm/sec and 91 cm/sec respectively. The right ICA/CCA ratio was 0 .7.The proximal right internal carotid artery demonstrates 0% stenosis relative to the normal distal artery lumen diameter. Stevens scale sonography of the left neck demonstrated no significant plaque. There was demonstration of normal color-flow and wave forms within the left common, internal and external carotid arteries. The peak systolic velocities in the left common, internal and external carotid arteries were demonstrate d to be 93cm/sec, 70 cm/sec and 91 cm/sec respectively. The left ICA/CCA ratio was 0.7. The proximal left internal carotid artery demonstrates 0% stenosis relative to the normal distal artery lumen diam eter. There was antegrade flow demonstrated in the bilateral vertebral arteries. Impression: No hemodynamically significant stenosis of the bilateral internal carotid arteries. Antegrade flow in the bilateral vertebral arteries. Note: The methodology used is an indirect measurement validated against a direct method (such as the NASCET criteria) that compares diameters at the stenosis to the distal ICA. Reviewed, dictated and finalized at location . Impression: No hemodynamically significant stenosis of the bilateral internal carotid arter ies. Antegrade flow in the bilateral vertebral arteries. Note: The methodology used is an indirect measurement validated against a direct meth od (such as the NASCET criteria) that compares diameters at the stenosis to the distal ICA.
--- NOTE | ~2023-04-07 | XR_ITS ---
Portable chest x-ray Comparison: 10/04/2022 Clinical History: Cough Findings: Left-sided Mediport remains in place. Probable minimal pleural effusions with mild pulmona ry edema pattern bilaterally. Cardiomediastinal silhouette is stable. Bones and soft tissues are unr emarkable. Impression: Probable mild pulmonary edema pattern and minimal pleural effusions. Correlate for infection or chron ic interstitial disease. Stable left-sided Mediport. Reviewed, dictated and finalized at location . Impression: Probable mild pulmonary edema pattern and minimal pleural effusions. Correlate for infection or chronic interstitial disease. Stable left-sided Mediport.
--- NOTE | ~2023-04-07 | MR_ITS ---
MRI of the brain Clinical History: Aphasia Technique: Axial and sagittal T1-weighted images were acquired. These were followed by axial T2-weigh dania, diffusion weighted, gradient, and FLAIR images. Following intravenous administration of 20 cc Mu ltiHance gadolinium, T1-weighted fat-sat imaging was performed in the axial, coronal, and sagittal pl anes. COMPARISON: 08/18/2019 Findings: There is no acute infarct, intracranial hemorrhage, or mass lesion. There is moderate sever e chronic white matter disease at the periventricular white matter bilaterally. Focal chronic lacunar infarct noted in the left periventricular white matter. Probable old infarcts at the anterior right temporal lobe and left frontal lobe. Ventricles and subarachnoid spaces are mildly dilated. Orbits are unremarkable. Paranasal sinuses and right mastoid air cells are clear. There is fluid in left mastoid air cells. Major intracranial flow voids are intact. Sagittal midline structures are intact. No abnormal postcontrast enhancement identified. IMPRESSION: No acute infarct, intracranial hemorrhage, or mass lesion. Moderate to advanced chronic microvascular ischemic changes with several small old infarcts, as detai led above. Reviewed, dictated and finalized at location . IMPRESSION: No acute infarct, intracranial hemorrhage, or mass lesion. Moderate to advanced chronic microvascular ischemic changes with several small old infarcts, as detailed above.
[2023-04-07 21:45] VITALS: BP 173/70; PULSE 90; RESP 15; TEMP 36.6; O2SAT 97
[2023-04-07 21:55] LABS: Glucose Point of Care 287 mg/dl (65-105)
--- NOTE | 2023-04-07 21:56 | ECG_ITS ---
Measurements Intervals [place] Rate: 86 P: 38 ID: 149 QRS: 18 QRSD: 114 T: 11 QT: 351 QTc: 420 Interpretive Statements SINUS RHYTHM VENTRICULAR PREMATURE COMPLEXES INTRAVENTRICULAR CONDUCTION DELAY DELAYED PRECORDIAL R/S TRANSITION BORDERLINE T WAVE ABNORMALITY- INFERIOR LEADS BASELINE ARTIFACT- I, II, AVR BORDERLINE ECG COMPARED TO ECG 10/04/2022 11:06:49 INTRAVENTRICULAR CONDUCTION DELAY NOW PRESENT T-WAVE ABNORMALITY NOW PRESENT Electronically Signed On 04-08-2023 7:41:22 CDT by Leland Day D.O.
[2023-04-07 22:26] LABS: Basophils Percent Auto 0.2 % (0.2-1.2); Eosinophils Absolute Auto 0.1 K/mm3 (0-0.3); Eosinophils Percent Auto 0.8 % (0-4.4); Hematocrit 34.2 % (42.0-52.0); Hemoglobin 10.7 g/dL (14.0-18.0); Immature Granulocyte Absolute 0.09 K/mm3 (0.00-0.031); Immature Granulocyte Percent A 0.9 % (0-0.5); Lymphocytes Percent Auto 10.5 % (18.3-44.2); Mean Corpuscular HGB Conc 31.3 g/dl (32-36); Mean Corpuscular Hemoglobin 29.6 pg (26-34); Mean Corpuscular Volume 94.5 fl (80-100); Mean Platelet Volume 8.8 fl (7.4-10.4); Monocytes Absolute Auto 1.3 K/mm3 (0.1-0.6); Monocytes Percent Auto 12.2 % (2.6-8.5); Neutrophils Absolute Auto 7.9 K/mm3 (1.3-6.7); Neutrophils Percent Auto 75.4 % (45.5-73.1); Platelet Count Result 297 k/mm3 (150-375); Red Blood Count 3.62 M/mm3 (4.6-6.20); Red Cell Distribution Width 17.5 % (11.5-14.5); White Blood Count 10.5 K/mm3 (4.5-10.0)
[2023-04-07 22:35] LABS: INR 0.9
[2023-04-07 22:36] LABS: Alanine Aminotransferase 25 U/L (6-50); Albumin Level 3.2 g/dL (3.5-5.1); Alkaline Phosphatase 73 U/L (38-126); Anion Gap 7 mmol/L (8-16); Aspartate Amino Transferase 21 U/L (17-59); Bilirubin,Total 0.4 mg/dL (0.2-1.3); Blood Urea Nitrogen 54 mg/dL (9-20); Calcium 8.6 mg/dL (8.4-10.2); Carbon Dioxide 29 mmol/L (22-30); Chloride 95 mmol/L (98-107); Estimated CRCL calculation 31 ml/min; Estimated Glomerular Filt Rate 31; Glucose 277 mg/dL (65-110); Partial Thromboplastin Time 22.9 SECONDS (22.3-36.8); Potassium 3.9 mmol/L (3.4-5.0); Sodium 131 mmol/L (137-145)
[2023-04-07 23:30] VITALS: PULSE 77
[2023-04-07 23:38] VITALS: PULSE 72; RESP 15; O2SAT 98
[2023-04-07 23:45] VITALS: PULSE 76; RESP 19; O2SAT 96
[2023-04-07 23:48] VITALS: BP 174/90; PULSE 75; RESP 20; O2SAT 95
[2023-04-08] VITALS (42 sets, daily range): BP systolic 148–205; BP diastolic 68–94; PULSE 65–104; RESP 10–24; TEMP 36.2–36.7; O2SAT 91–100; BMI 30.9
--- NOTE | 2023-04-08 00:33 | ED.GENADULT ---
HPI - General Adult General Chief complaint: Altered Mental Status Stated complaint: altered mental status Time Seen by Provider: 04/07/23 23:44 History of Present Illness HPI narrative: Is a 82-year-old gentleman who presents the emergency department with chief complaint of altered mental status. Per the patient's family the patient was last known well around 10 AM this morning around 6 PM they noticed that he was having difficulty getting words out. Patient has prior history of UTIs history of bladder cancer that had metastatic lesions. 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 Patient has no prior history of metastatic lesions to the brain Related Data Home Medications Medication Instructions Recorded Confirmed fluticasone fur. 100 mcg-umeclid 1 inh inhalation QAM 02/25/22 04/04/23 62.5 mcg-vilant 25 mcg inhalat.powder (Trelegy Ellipta) albuterol sulfate 90 mcg/actuation 2 puff inhalation PRN PRN 08/19/22 04/04/23 aerosol inhaler Shortness Of Breath acetaminophen 500 mg tablet 1,000 mg PO Q6H PRN Pain 09/29/22 04/04/23 (Acetaminophen Extra Strength) metoprolol tartrate 50 mg tablet 50 mg PO QAM 09/29/22 04/04/23 ferrous sulfate 325 mg (65 mg 325 mg PO BID 12/06/22 04/04/23 iron) capsule,extended release mecobalamin (vitamin B12) 1,000 1,000 mcg PO DAILY 12/06/22 04/04/23 mcg chewable tablet prednisone 10 mg tablets in a dose 10 mg PO DIRECTED 04/04/23 04/04/23 pack Allergies Allergy/AdvReac Type Severity Reaction Status Date / Time dapagliflozin [From Farga] Allergy Intermediate rash, Verified 04/04/23 13:18 itching amlodipine Allergy Mild swollen Verified 04/04/23 13:18 legs, rash Review of Systems Review of Systems: A 10 system review of systems was completed on the patient and is negative except for what is stated in the HPI. Nursing and ancillary documentation was reviewed. [facility] Past Medical History Medical History Acute CVA (cerebrovascular accident) Anemia in CKD (chronic kidney disease) Bladder cancer Diagnosed 12/2019 BMI 36.0-36.9,adult Cataracts, bilateral Chronic back pain Chronic kidney disease, stage IV (severe) Chronic renal failure, stage 3 (moderate) COPD (chronic obstructive pulmonary disease) CPAP (continuous positive airway pressure) dependence GERD (gastroesophageal reflux disease) History of CVA with residual deficit History of rectal polyps HTN (hypertension) Hyperlipidemia Insomnia Obesity Prostate cancer Sleep apnea Slurred speech Stroke Type 2 diabetes mellitus without complication, without long-term current use of insulin Vitamin D deficiency Surgical History Surgical History History of facial surgery Family History Family History Mother Cerebrovascular accident, Onset Age: 93 Patient's mother is Obesity Father Cerebrovascular accident, Onset Age: 84 Patient's father is Other Diabetes mellitus Family history of malignant neoplasm Hypertension Social History Social History Smoking packs per day: 1 Smoking cigarettes per day: 20.0 Years smoked: 42 Smoking pack-years: 42.00 Smoking status: Former smoker Tobacco type: cigarettes Second hand tobacco smoke exposure: No Smoking end date: 03/12/04 Alcohol intake: current Drinks per week: 14 Alcohol use details: 1-2 nightly sometimes Substance use: never Lack of Transportation: No Lack of Food: Never True Current Housing: I Have Housing Concerned About Future Housing: No Difficulty Paying Gas/Electric Bills
[2023-04-08 00:37] LABS: Magnesium 1.7 mg/dL (1.6-2.3)
[2023-04-08 00:38] LABS: Lactic Acid Reflex 1.6 mmol/L (0.7-2.0)
[2023-04-08 01:06] LABS: Troponin I 0.174 ng/mL (0.000-0.034)
[2023-04-08 01:07] LABS: Appearance Urine Clear (Clear); Bacteria Urine None Seen /hpf; Bilirubin Urine Negative (Negative); Blood Urine 1+ (Negative); Color Urine Yellow (Yellow); Glucose Urine UA 1+ mg/dL (Negative); Hyaline Casts Urine Present /lpf; Ketones Urine Negative (Negative); Leukocyte Esterase Ur Negative LEU/UL (Negative); Nitrate Urine Negative (Negative); Protein Urine 4+ mg/dL (Negative); Specific Grav Ur 1.019 (1.001-1.035); Squamous Epithelial Cell Urine None seen /hpf (Few); Urobilinogen Urine 0.2 mg/dL (<2.0); pH Urine 5.5 (5.0-9.0)
[2023-04-08 01:08] LABS: Add Urine Microscopic? YES
[2023-04-08 01:14] LABS: Procalcitonin 0.2 ng/mL
[2023-04-08] MEDS: ASPIRIN 81 MG CHEWABLE TABLET 324 MG PO (01:56)
[2023-04-08 05:18] LABS: Troponin I 0.197 ng/mL (0.000-0.034)
--- NOTE | 2023-04-08 05:56 | ADMIMU ---
This patient, Ihsan Henderson, was admitted to IMU status at 0430, and placed in Intensive Care Unit-6. Patient/family oriented to hospital policies and general routines including ID bracelet, bed and alarms, visiting hours, pain management, procedures, bathroom and other care routines, personal items, smoking policy, room service/diet, and visiting hours. Valuables list has been completed. Information on how to activate the Rapid Response Team has been discussed. Patient/Family are encouraged to report perceived risks to care and to ask questions if they do not understand what they are told or what they should do.
--- NOTE | 2023-04-08 05:57 | PC.NURSE ---
Ronald and neena taken home by daughter Luanne. Daughter removed continuous glucose monitor before leaving.
[2023-04-08] MEDS: hydrALAZINE HCL 20 MG/ML VIAL 10 MG IV PUSH ×2 (06:28→21:38)
[2023-04-08] MEDS: ASPIRIN 81 MG CHEWABLE TABLET PO (07:48)
[2023-04-08 08:53] LABS: Troponin I 0.202 ng/mL (0.000-0.034)
[2023-04-08 09:22] LABS: Glucose Point of Care 119 mg/dl (65-105)
--- NOTE | 2023-04-08 11:29 | PM.CNCAR ---
Assessment and Plan Assessment and plan (1) Troponin I above reference range: Code(s): R77.8 - Other specified abnormalities of plasma proteins Status: Acute Plan 82-year-old man with metastatic bladder cancer entered the hospital with mental status alterations. For reasons that are not clear to me according to the ER doctor note that is in the chart troponin levels were sampled they are slightly elevated as described above the pattern is flat not really consistent of acute myocardial injury there was no symptom of chest pain and no ECG evidence to suggest acute coronary event. I do not believe any further cardiac evaluation of this is necessary. If you have any questions for me about this opinion please let me know Sean Calhoun MD [facility] History of Present Illness History of Present Illness Consult date/time: 04/08/23 11:29 Reason For Visit: UTI/Elevated Troponin/Aphasia Narrative: This is an 82-year-old man I am seeing today at the request of the hospitalist because of troponin levels that are out of normal range. The patient is unknown to me prior to this consultation he is seen in the ICU 6. Where he was hospitalized after being seen in the emergency room yesterday. Apparently he was brought to the emergency department by family because of perceived change in mental status confusion and altered mental status etc.. There is no indication in the chart that he has been reporting any symptoms of chest pain pressure or heaviness. The patient is able to answer questions as I per take the history and evaluate him this morning but some of the great answers are inappropriate. In any event he says that he is not having any symptoms now he states he is not known to have any cardiac problems prior to this and seems to be comfortable. In the emergency room he was evaluated and for some reason 3 troponin levels were ordered the they are out of normal range specifically 0.17, 0.19 and 0.2. His electrocardiogram does not show any evidence of acute ischemia or injury. Again there is no evidence from talking to him or in the chart that he has coronary artery disease. The principal health problem is carcinoma of the bladder which is known to be metastatic to the retroperitoneal lymph nodes and elsewhere. As far as we know he does not have any cerebral metastasis. Because of the troponin levels I have been consulted to see him. There is no notation in the chart as to why they were drawn. No other notes are in the chart except to the emergency room physician from the middle of the night. Review of Systems Review of Systems: ROS unobtainable: Yes unobtainable due to mental status PMFSH Past Medical History Medical History Acute CVA (cerebrovascular accident) Anemia in CKD (chronic kidney disease) Bladder cancer Diagnosed 12/2019 BMI 36.0-36.9,adult Cataracts, bilateral Chronic back pain Chronic kidney disease, stage IV (severe) Chronic renal failure, stage 3 (moderate) COPD (chronic obstructive pulmonary disease) CPAP (continuous positive airway pressure) dependence GERD (gastroesophageal reflux disease) History of CVA with residual deficit History of rectal polyps HTN (hypertension) Hyperlipidemia Insomnia Obesity Prostate cancer Sleep apnea Slurred speech Stroke Type 2 diabetes mellitus without complication, without long-term current use of insulin Vitamin D deficiency Surgical History Surgical History History of facial surgery Family History Family History Mother Cerebrovascular accident, Onset Age: 93 Patient's mother is Obesity Father Cerebrovascular accident, Onset Age: 84 Patient's father is Other Diabetes mellitus Family history of malignant neoplasm Hypertension Social Histo
--- NOTE | 2023-04-08 11:42 | PM.IMHP ---
H&P: HPI History of Present Illness Date/Time: 04/08/23 11:42 Chief Complaint: Altered mental status Narrative: 82-year-old male with history of stroke, metastatic bladder cancer (completed 4 cycles of palliative chemotherapy January 17, 2023), kidney disease, COPD, GERD and diabetes among other comorbidities is presenting with altered mental status. Family reports he had word-finding difficulty around 6:00 p.m. 04/07. Last known normal was 10:00 a.m. 04/07. No chest pain or shortness of breath. No nausea, vomiting or diarrhea. No fevers or chills. Of note, he does have a history of bladder cancer with metastatic lesions, no history of lesions to the brain. 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 He is on a daily baby aspirin due to history of 2 CVAs. Cardiology was consulted due to slightly elevated troponin, no concern for acute cardiac etiology noted, they signed off. Neurology was also consulted. MRI was negative for acute stroke despite presenting with expressive aphasia. Urinalysis was abnormal, concerning for possible UTI. Antibiotics have been initiated for this. Neurology is recommending LP if symptoms do not improve with treatment of the UTI to rule out possible encephalitis. Review of Systems Review of Systems: 12 point review of systems was assessed and was negative except as noted in the HPI [facility] Past Medical History Medical History Acute CVA (cerebrovascular accident) Anemia in CKD (chronic kidney disease) Bladder cancer Diagnosed 12/2019 BMI 36.0-36.9,adult Cataracts, bilateral Chronic back pain Chronic kidney disease, stage IV (severe) Chronic renal failure, stage 3 (moderate) COPD (chronic obstructive pulmonary disease) CPAP (continuous positive airway pressure) dependence GERD (gastroesophageal reflux disease) History of CVA with residual deficit History of rectal polyps HTN (hypertension) Hyperlipidemia Insomnia Obesity Prostate cancer Sleep apnea Slurred speech Stroke Type 2 diabetes mellitus without complication, without long-term current use of insulin Vitamin D deficiency Surgical History Surgical History History of facial surgery Family History Family History Mother Cerebrovascular accident, Onset Age: 93 Patient's mother is Obesity Father Cerebrovascular accident, Onset Age: 84 Patient's father is Other Diabetes mellitus Family history of malignant neoplasm Hypertension Social History Social History Smoking packs per day: 1 Smoking cigarettes per day: 20.0 Years smoked: 40 Smoking pack-years: 40.00 Smoking status: Former smoker Tobacco type: cigarettes Second hand tobacco smoke exposure: Yes Smoking end date: 03/12/04 Alcohol intake: current Drinks per week: 2 Alcohol use details: 1-2 nightly sometimes Substance use: never Other substance usage details: used to drink several drinks per day Lack of Transportation: No Lack of Food: Never True Current Housing: I Have Housing Concerned About Future Housing: No Difficulty Paying Gas/Electric Bills: No Difficulty Paying for Meds: No Currently Unemployed: No Education: High School Diploma/GED Difficulty w/ Childcare or Family Care: No Living arrangements: alone Additional living arrangements comments: - EMILY Gender identity (if verbalized by the patient): Male Sexual Orientation (if Verbalized by the Patient): Straight or Heterosexual Spiritual care concerns: No Agree to blood products: No Meds Home Medications and Allergies Home Medications
--- NOTE | 2023-04-08 12:04 | WPDNEURCNPN ---
Assessment and Plan Assessment and plan (1) Aphasia: Code(s): R47.01 - Aphasia Status: Acute (2) Chronic arterial ischemic stroke: Code(s): I69.30 - Unspecified sequelae of cerebral infarction Status: Acute (3) Bladder cancer: Code(s): C67.9 - Malignant neoplasm of bladder, unspecified Status: Acute (4) UTI (urinary tract infection): Code(s): N39.0 - Urinary tract infection, site not specified Status: Acute Plan Mr. Henderson is an 82 year old male with a history of metastatic bladder cancer and prior history of L parietal and frontal strokes. He presents due to concerns for change in mental status as well as new aphasia. His MRI brain was negative for acute stroke. When he presented in 2019 with acute stroke, his presenting symptom at the time was aphasia. During this admission, there is concern that he may have a UTI. Underlying infectious can cause recrudescence of symptoms of prior strokes, which may be what he is experiencing. Would expect as the underlying infection is treated, his speech would improve as well. - If speech does not improve despite treatment or urine cultures come back negative, consider obtain LP to evaluate for possible encephalitis since there does not seem to be any other source of infectious Consult date: 04/08/23 Reason for consult: AMS, aphasia HPI: Ihsan Henderson is a 82 year old male with a history of bladder cancer with metastasis, prior stroke, COPD, CKD, ABIGAIL, HTN, HLD, DM who was brought in due to altered mental status and aphasia. Patient's LKW was around 10AM on day of presentation. Around 6PM on the same day, family members noted that he was having some difficulty getting words out. He was brought to [place] emergency department where he continued to remain aphasic. CT head and carotid Doppler were done which were unrevealing. Labwork was significant for UA with some WBCs but negative for LE and bacteria. Urine culture is still pending. He is currently being treated for presumed UTI. MRI brain was done this morning which was negative for acute infarct. Patient does not take any significant sedating medications at home. Of note, patient had a prior stroke in 2019. His primary symptom at that time was aphasia and R facial droop. MRI brain from that admission revealed acute infarct in the left parietal lobe as well as chronic infarcts in the L frontal lobe. Per bedside nurse, patient's daughter reported that his speech was normal just prior to this current admission, and that his speech is still not at his baseline. Review of Systems Review of Systems: ROS unobtainable: Yes unobtainable due to medical condition and unobtainable due to mental status PMFSH Past Medical History Medical History Acute CVA (cerebrovascular accident) Anemia in CKD (chronic kidney disease) Bladder cancer Diagnosed 12/2019 BMI 36.0-36.9,adult Cataracts, bilateral Chronic back pain Chronic kidney disease, stage IV (severe) Chronic renal failure, stage 3 (moderate) COPD (chronic obstructive pulmonary disease) CPAP (continuous positive airway pressure) dependence GERD (gastroesophageal reflux disease) History of CVA with residual deficit History of rectal polyps HTN (hypertension) Hyperlipidemia Insomnia Obesity Prostate cancer Sleep apnea Slurred speech Stroke Type 2 diabetes mellitus without complication, without long-term current use of insulin Vitamin D deficiency Surgical History Surgical History History of facial surgery Family History Family History Mother Cerebrovascular accident, Onset Age: 93 Patient's mother is Obesity Father Cerebrovascular accident, Onset Age: 84 Patient's father is Other Diabetes mellitus Family history of malignant neoplasm
[2023-04-08 12:09] LABS: Glucose Point of Care 113 mg/dl (65-105)
[2023-04-08] MEDS: INSULIN GLARGINE (*BKC) 100 UNITS/ML 18 UNITS SUB-Q (12:21)
[2023-04-08 16:39] LABS: Glucose Point of Care 139 mg/dl (65-105)
[2023-04-08] MEDS: METOPROLOL TARTRATE 50 MG TAB PO (16:39)
[2023-04-08] MEDS: SIMVASTATIN 20 MG TABLET 40 MG PO (20:37)
[2023-04-08] MEDS: IRBESARTAN 150 MG TABLET 300 MG PO (20:37)
[2023-04-08 21:42] LABS: Glucose Point of Care 100 mg/dl (65-105)
[2023-04-09] VITALS (17 sets, daily range): BP systolic 151–190; BP diastolic 61–93; PULSE 67–84; RESP 15–27; TEMP 36.2–36.8; O2SAT 92–98
--- NOTE | 2023-04-09 | ECHO_ITS ---
Patient Info Name: Ihsan Henderson Age: 82 years : 1940 Gender: Male Ht: 71 in Wt: 221 lbs BSA: 2.27 m2 HR: 68 bpm BP: 166 / 71 mmHg Heart Rhythm: Sinus Rhythm Technical Quality: Poor Exam Date: 04/09/2023 2:10 PM Exam Location: [facility] Pulmonary Exam Room: ICU6 Patient Status: Outpatient Admit Date: 04/08/2023 Staff Ordering Physician: Lisha Reyes DO Geographical Historian: Mitzi Kelly RDCS Attending Provider: Stevie Feliciano MD Referring Physician: Amy LAMB; Exam Type: CA echo dop bubble study w con Study Info Indications - H/O CVA Complete two-dimentional, color flow and Doppler transthoracic echocardiogram is performed with agitated saline and with contrast to opacify the left ventricle and to improve the delineation of the left ventricle endocardial borders. Contrast/Agitated Saline Contrast/Ag. Saline: Definity Amount: 2.00 ml Administered By: Mitzi Kelly DR. [facility] Existing IV Access: Yes IV Access Condition: patent with no signs of infiltration Reason for Poor Study: patient body habitus Summary 1. Echo/Doppler performed with definity contrast and saline contrast injection. 2. Left ventricular hypertrophy with vigorous systolic function. 3. Enlarged left atrium. 4. Sclerotic aortic valve without stenosis. 5. No evidence of intracardiac shunt detected with saline contrast injection. Left Ventricle Left ventricular chamber dimension is normal. Left ventricular systolic function is hyperdynamic, estimated at >70%. There is moderate concentric increased left ventricular wall thickness. The left ventricular diastolic function is grade I diastolic dysfunction. Right Ventricle Right ventricular chamber dimension is normal. Left Atria Left atrial chamber dimension is moderately enlarged. Right Atria Right atrial chamber dimension is normal. Aortic Valve The aortic valve is trileaflet. There is mild aortic valve sclerosis. Pulmonic Valve The pulmonic valve is not well visualized. Mitral Valve The mitral valve has normal leaflets. Tricuspid Valve The tricuspid valve leaflets are normal. Pericardium/Pleural The pericardium appears normal. Aorta The aortic root size at the sinus of Valsalva is normal. Left Ventricular Outflow Tract Name Value Normal LVOT 2D LVOT Diameter 2.1 cm LVOT Doppler LVOT Peak Gradient 3 mmHg LVOT Mean Gradient 2 mmHg LVOT VTI 17 cm LVOT VTI/AV VTI Ratio 0.8 LVOT Stroke Volume 62 ml LVOT CO 13.2 l/min LVOT CI 5.8 l/min/m2 Pulmonic Valve Name Value Normal PV Doppler PV Peak Gradient 3 mmHg Mitral Valve Name
[2023-04-09 04:39] LABS: Basophils Percent Auto 0.1 % (0.2-1.2); Eosinophils Percent Auto 0.3 % (0-4.4); Hemoglobin 11.3 g/dL (14.0-18.0); Immature Granulocyte Absolute 0.08 K/mm3 (0.00-0.031); Immature Granulocyte Percent A 0.6 % (0-0.5); Lymphocytes Absolute Auto 1.36 K/mm3 (0.9-3.2); Lymphocytes Percent Auto 10.6 % (18.3-44.2); Mean Corpuscular HGB Conc 32.3 g/dl (32-36); Mean Corpuscular Hemoglobin 30.2 pg (26-34); Mean Corpuscular Volume 93.6 fl (80-100); Mean Platelet Volume 8.8 fl (7.4-10.4); Monocytes Absolute Auto 1.5 K/mm3 (0.1-0.6); Neutrophils Absolute Auto 9.8 K/mm3 (1.3-6.7); Neutrophils Percent Auto 76.4 % (45.5-73.1); Platelet Count Result 262 k/mm3 (150-375); Red Blood Count 3.74 M/mm3 (4.6-6.20); Red Cell Distribution Width 17.8 % (11.5-14.5); White Blood Count 12.8 K/mm3 (4.5-10.0)
[2023-04-09 04:54] LABS: Alanine Aminotransferase 20 U/L (6-50); Alkaline Phosphatase 74 U/L (38-126); Anion Gap 2 mmol/L (8-16); Aspartate Amino Transferase 23 U/L (17-59); Bilirubin,Total 0.4 mg/dL (0.2-1.3); Blood Urea Nitrogen 48 mg/dL (9-20); Calcium 8.5 mg/dL (8.4-10.2); Carbon Dioxide 30 mmol/L (22-30); Chloride 98 mmol/L (98-107); Estimated CRCL calculation 30 ml/min; Estimated Glomerular Filt Rate 29; Glucose 68 mg/dL (65-110); Potassium 3.3 mmol/L (3.4-5.0); Sodium 130 mmol/L (137-145)
[2023-04-09 05:06] LABS: Glucose Point of Care 73 mg/dl (65-105)
[2023-04-09] MEDS: ENOXAPARIN 40 MG/0.4 ML SYRINGE SUB-Q (08:02)
[2023-04-09] MEDS: FELODIPINE 5 MG TAB CR PO (08:03)
[2023-04-09] MEDS: ASPIRIN 81 MG CHEWABLE TABLET PO (08:03)
[2023-04-09] MEDS: PANTOPRAZOLE 40 MG TABLET PO (08:03)
[2023-04-09] MEDS: METOPROLOL TARTRATE 50 MG TAB PO ×2 (08:03→16:46)
[2023-04-09] MEDS: hydroCHLOROthiazide 25 MG TABLET PO (08:03)
[2023-04-09 08:46] LABS: Glucose Point of Care 79 mg/dl (65-105)
--- NOTE | 2023-04-09 11:35 | PM.IMPN ---
Progress Note: A&P Assessment and Plan (1) UTI (urinary tract infection): Code(s): N39.0 - Urinary tract infection, site not specified Status: Acute Assessment and Plan: Rocephin started 04/07 Follow-up urine culture (2) Chronic arterial ischemic stroke: Code(s): I69.30 - Unspecified sequelae of cerebral infarction Status: Acute Assessment and Plan: Appreciate neurology consultation Echo with bubble study pending (3) Aphasia: Code(s): R47.01 - Aphasia Status: Acute Assessment and Plan: See above, unsure of etiology, MRI negative for stroke May need LP to rule out encephalitis per Neurology (4) Vasculitis: Code(s): I77.6 - Arteritis, unspecified Status: Acute Assessment and Plan: Continue prednisone for now, being seen by vascular surgery and rheumatology outpatient (5) Chronic kidney disease, stage IV (severe): Code(s): N18.4 - Chronic kidney disease, stage 4 (severe) Status: Chronic Assessment and Plan: Baseline appears to be 1.9-2.1, currently 2.1 Monitor (6) Diabetes mellitus with chronic kidney disease: Qualifiers: Chronic kidney disease stage: stage 4 (severe) Diabetes mellitus type: type 2 Code(s): E11.22 - Type 2 diabetes mellitus with diabetic chronic kidney disease Status: Chronic Assessment and Plan: Accu-Cheks, sliding scale insulin, check A1c Blood glucose reviewed 04/09 (7) Cancer of overlapping sites of bladder: Code(s): C67.8 - Malignant neoplasm of overlapping sites of bladder Status: Acute Assessment and Plan: Per outpatient management (8) Hyperlipidemia: Qualifiers: Hyperlipidemia type: unspecified Qualified Code(s): E78.5 - Hyperlipidemia, unspecified Code(s): E78.5 - Hyperlipidemia, unspecified Status: Acute (9) COPD (chronic obstructive pulmonary disease): Qualifiers: COPD type: unspecified COPD Qualified Code(s): J44.9 - Chronic obstructive pulmonary disease, unspecified Code(s): J44.9 - Chronic obstructive pulmonary disease, unspecified Status: Acute Assessment and Plan: Does not appear to be in an exacerbation (10) Hyponatremia: Code(s): E87.1 - Hypo-osmolality and hyponatremia Status: Chronic Assessment and Plan: Worsening, check renal US, consult nephrology Plan DVT prophylaxis with lovenox GI prophylaxis not indicated Code status full code Subjective Date/time seen: 04/09/23 11:35 Interval history: 82-year-old male with history of stroke, metastatic bladder cancer, diabetes other comorbidities is presenting with altered mental status and currently being worked up for possible CVA and UTI. No overnight events noted. No chest pain or shortness of breath. No nausea, vomiting or diarrhea. No fevers or chills. Still continues to have word-finding difficulty, much improved. Case discussed with daughter who was at bedside. She agrees symptoms are significantly improving. Review of Systems Review of Systems: 12 point review of systems was assessed and was negative except as noted in the HPI Exam Narrative: General: No acute distress, alert and oriented per baseline HEENT: Atraumatic, normocephalic, mucous membranes moist CV: Regular rate and rhythm, S1, S2 Lungs: Clear to auscultation bilaterally, no rales or crackles noted, no wheezes, good air entry Abdomen: Soft, nontender, nondistended Extremities: Normal to inspection Skin: No rashes noted, no lesions or wounds seen Psych: Euthymic, normal affect Neuro: Cranial nerves 2-12 grossly intact, strength +5/5 upper and lower extremities bilaterally, notable expressive aphasia Objective Data Vital Signs Vital Signs: Vital Signs - 24 hr 04/08/23 12:00 04/08/23 12:00 04/08/23 14:00 Temperature 97.2 F L Pulse Rate 80 79 90 Respirato
--- NOTE | 2023-04-09 11:42 | PM.CNNEP ---
Assessment and Plan Assessment and plan (1) Hyponatremia: Code(s): E87.1 - Hypo-osmolality and hyponatremia Status: Chronic Assessment and Plan: chronic issue since September 2022 if not longer baseline sodium level runs 127 - 137mmol/L risk factors for low sodium chronic kidney disease known malignancy (bladder cancer) lung disease (COPD) HCTZ use for completeness, check TSH and cortisol level as well as urine electrolytes interpretation of cortisol may be difficult since on steroid therapy follow trend of repeat sodium levels (2) Chronic kidney disease, stage IV (severe): Code(s): N18.4 - Chronic kidney disease, stage 4 (severe) Status: Chronic Assessment and Plan: baseline creatinine runs 1.7 - 2.4mg/dl in the last year or so due to hypertension, diabetes, obstructive sleep apnea, vascular disease, and age-related change based on outpatient evalution follow with me in the office for CKD management (3) Aphasia: Code(s): R47.01 - Aphasia Status: Acute Assessment and Plan: as noted on presentation Neurology recommendations noted imaging done to date reviewed continue supportive therapy (4) UTI (urinary tract infection): Code(s): N39.0 - Urinary tract infection, site not specified Status: Acute Assessment and Plan: possible based on admission UA on empiric antibiotics follow-up on urine culture (5) Hypertension: Qualifiers: Hypertension type: unspecified Qualified Code(s): I10 - Essential (primary) hypertension Code(s): I10 - Essential (primary) hypertension Status: Acute Assessment and Plan: running a bit high at this time resumed on home medications follow trend of hemodynamics (6) Diabetes mellitus with chronic kidney disease: Qualifiers: Chronic kidney disease stage: stage 4 (severe) Diabetes mellitus type: type 2 Code(s): E11.22 - Type 2 diabetes mellitus with diabetic chronic kidney disease Status: Chronic Assessment and Plan: follow accu-cheks glycemic control per hospitalists I will continue follow the patient with you while he remains hospitalized and make further recommendations as needed. Thank you for allowing me to participate in the care of this patient. History of Present Illness Reason for Consult Consult date: 04/09/23 Reason for consult: chronic renal failure Chief Complaint Chief complaint: UTI/Elevated Troponin/Aphasia History of Present Illness Narrative: The patient is an 82-year-old male with a past medical history as outlined below who presented to [facility] Emergency Room for further evaluation of altered mental status. Apparently, his family noted yesterday in the late evening the patient had some difficulty with word finding. Prior to that, at least earlier that same day, he was well within normal limits. As this was a significant change that is did not seem to be improving, they brought him to the emergency room for further assessment. Workup and evaluation emergency room demonstrated the patient to be hemodynamically stable and in no acute distress. He did apparently have cell have some issues with regard to word-finding and routine blood test demonstrated labs consistent with his known history of chronic kidney disease. However, given his history of previous CVAs, Neurology was consulted and he underwent a MRI of the brain which did not demonstrate any acute stroke. Further testing included a urinalysis that was somewhat suggestive of possible urinary tract infection and he did have a slightly elevated troponin but Cardiology did not feel this was a representation of acute coronary syndrome. Given the constellation of symptoms that led to his presentation to the emergency room, he was subsequently admitted hospital for further evaluation therapy. Since his admission, he still appears to h
--- NOTE | 2023-04-09 11:42 | P.CONNP_ITS ---
Assessment and Plan Assessment and plan (1) Hyponatremia: Code(s): E87.1 - Hypo-osmolality and hyponatremia Status: Chronic Assessment and Plan: * chronic issue since September 2022 if not longer * baseline sodium level runs 127 - 137mmol/L * risk factors for low sodium * chronic kidney disease * known malignancy (bladder cancer) * lung disease (COPD) * HCTZ use * for completeness, check TSH and cortisol level as well as urine electrolytes * interpretation of cortisol may be difficult since on steroid therapy * follow trend of repeat sodium levels (2) Chronic kidney disease, stage IV (severe): Code(s): N18.4 - Chronic kidney disease, stage 4 (severe) Status: Chronic Assessment and Plan: * baseline creatinine runs 1.7 - 2.4mg/dl in the last year or so * due to hypertension, diabetes, obstructive sleep apnea, vascular disease, and age-related change based on outpatient evalution * follow with me in the office for CKD management (3) Aphasia: Code(s): R47.01 - Aphasia Status: Acute Assessment and Plan: * as noted on presentation * Neurology recommendations noted * imaging done to date reviewed * continue supportive therapy (4) UTI (urinary tract infection): Code(s): N39.0 - Urinary tract infection, site not specified Status: Acute Assessment and Plan: * possible based on admission UA * on empiric antibiotics * follow-up on urine culture (5) Hypertension: Qualifiers: Hypertension type: unspecified Qualified Code(s): I10 - Essential (primary) hypertension Code(s): I10 - Essential (primary) hypertension Status: Acute Assessment and Plan: * running a bit high at this time * resumed on home medications * follow trend of hemodynamics (6) Diabetes mellitus with chronic kidney disease: Qualifiers: Chronic kidney disease stage: stage 4 (severe) Diabetes mellitus type: type 2 Code(s): E11.22 - Type 2 diabetes mellitus with diabetic chronic kidney disease Status: Chronic Assessment and Plan: * follow accu-cheks * glycemic control per hospitalists I will continue follow the patient with you while he remains hospitalized and make further recommendations as needed. Thank you for allowing me to participate in the care of this patient. History of Present Illness Reason for Consult Consult date: 04/09/23 Reason for consult: chronic renal failure Chief Complaint Chief complaint: UTI/Elevated Troponin/Aphasia History of Present Illness Narrative: The patient is an 82-year-old male with a past medical history as outlined below who presented to [facility] Emergency Room for further evaluation of altered mental status. Apparently, his family noted yesterday in the late evening the patient had some difficulty with word finding. Prior to that, at least earlier that same day, he was well within normal limits. As this was a significant change that is did not seem to be improving, they brought him to the emergency room for further assessment. Workup and evaluation emergency room demonstrated the patient to be hemodynamically stable and in no acute distress. He did apparently have cell have some issues with regard to word-finding and routine blood test demonstrated labs consistent with his known history of chronic kidney disease. However, given his history of previous CVAs, Neurology was consulted and he underwent a MRI of the brain which did not demonstrate any acute stroke. Further test
[2023-04-09 12:15] LABS: CRP 3.4 mg/dL (<1.0)
[2023-04-09 12:33] LABS: Glucose Point of Care 139 mg/dl (65-105)
[2023-04-09 13:04] LABS: Procalcitonin 0.2 ng/mL
[2023-04-09] MEDS: PERFLUTREN LIPID MICROSPHERES 1.5 ML VIAL DILUTED TO 10 ML TOTAL VOLUME IV PUSH (14:40)
[2023-04-09 16:46] LABS: Glucose Point of Care 235 mg/dl (65-105)
[2023-04-09] MEDS: INSULIN GLARGINE (*BKC) 100 UNITS/ML 18 UNITS SUB-Q (16:52)
[2023-04-09] MEDS: SIMVASTATIN 20 MG TABLET 40 MG PO (20:49)
[2023-04-09] MEDS: IRBESARTAN 150 MG TABLET 300 MG PO (20:50)
[2023-04-09 21:27] LABS: Glucose Point of Care 225 mg/dl (65-105)
[2023-04-10] VITALS (15 sets, daily range): BP systolic 136–197; BP diastolic 54–83; PULSE 56–93; RESP 18–24; TEMP 36.1–36.5; O2SAT 91–98
[2023-04-10 04:04] LABS: Basophils Percent Auto 0.2 % (0.2-1.2); Eosinophils Absolute Auto 0.1 K/mm3 (0-0.3); Eosinophils Percent Auto 1.2 % (0-4.4); Hematocrit 33.7 % (42.0-52.0); Hemoglobin 10.7 g/dL (14.0-18.0); Immature Granulocyte Absolute 0.06 K/mm3 (0.00-0.031); Immature Granulocyte Percent A 0.6 % (0-0.5); Lymphocytes Absolute Auto 1.79 K/mm3 (0.9-3.2); Mean Corpuscular HGB Conc 31.8 g/dl (32-36); Mean Corpuscular Hemoglobin 30.3 pg (26-34); Mean Corpuscular Volume 95.5 fl (80-100); Mean Platelet Volume 9.2 fl (7.4-10.4); Monocytes Absolute Auto 1.5 K/mm3 (0.1-0.6); Neutrophils Absolute Auto 6.5 K/mm3 (1.3-6.7); Platelet Count Result 252 k/mm3 (150-375); Red Blood Count 3.53 M/mm3 (4.6-6.20); Red Cell Distribution Width 17.9 % (11.5-14.5); White Blood Count 9.9 K/mm3 (4.5-10.0)
[2023-04-10 04:20] LABS: Alanine Aminotransferase 19 U/L (6-50); Alkaline Phosphatase 74 U/L (38-126); Anion Gap 5 mmol/L (8-16); Aspartate Amino Transferase 23 U/L (17-59); Bilirubin,Total 0.5 mg/dL (0.2-1.3); Blood Urea Nitrogen 53 mg/dL (9-20); Calcium 8.2 mg/dL (8.4-10.2); Carbon Dioxide 28 mmol/L (22-30); Chloride 97 mmol/L (98-107); Estimated CRCL calculation 23 ml/min; Estimated Glomerular Filt Rate 25; Glucose 55 mg/dL (65-110); Potassium 3.3 mmol/L (3.4-5.0); Sodium 130 mmol/L (137-145)
[2023-04-10 04:48] LABS: Glucose Point of Care 70 mg/dl (65-105)
--- NOTE | 2023-04-10 07:11 | PC.NURSE ---
This patient, Ihsan Henderson, was transferred to [[facility] room 207 ] on 04/10/23 at 0711. Personal belongings sent with patient. Report given to [ASHLEY Toney ]. Appropriate documentation sent with patient.
[2023-04-10 07:54] LABS: Creatinine Urine 96.3 mg/dL; Urea Random Urine 665 MG/DL
[2023-04-10 07:55] LABS: Sodium Urine Random 39 meq/L
[2023-04-10] MEDS: PANTOPRAZOLE 40 MG TABLET PO (08:25)
[2023-04-10] MEDS: ASPIRIN 81 MG CHEWABLE TABLET PO (08:25)
[2023-04-10] MEDS: METOPROLOL TARTRATE 50 MG TAB PO ×2 (08:25→16:11)
[2023-04-10] MEDS: ENOXAPARIN 40 MG/0.4 ML SYRINGE SUB-Q (08:25)
[2023-04-10] MEDS: FELODIPINE 5 MG TAB CR PO (08:26)
[2023-04-10] MEDS: hydroCHLOROthiazide 25 MG TABLET PO (08:29)
--- NOTE | 2023-04-10 08:46 | PM.IMPN ---
Progress Note: A&P Assessment and Plan (1) UTI (urinary tract infection): Code(s): N39.0 - Urinary tract infection, site not specified Status: Acute Assessment and Plan: Rocephin started 04/07 Follow-up urine culture 04/10: urine culture negative, d/c abx (2) Chronic arterial ischemic stroke: Code(s): I69.30 - Unspecified sequelae of cerebral infarction Status: Acute Assessment and Plan: Appreciate neurology consultation Echo with bubble study negative for PFO, EF >70% grade I diastolic dysfunction noted (3) Hyponatremia: Code(s): E87.1 - Hypo-osmolality and hyponatremia Status: Chronic Assessment and Plan: Worsening, check renal US, consult nephrology (4) Aphasia: Code(s): R47.01 - Aphasia Status: Acute Assessment and Plan: See above, unsure of etiology, MRI negative for stroke May need LP to rule out encephalitis per Neurology (5) Vasculitis: Code(s): I77.6 - Arteritis, unspecified Status: Acute Assessment and Plan: Continue prednisone for now, being seen by vascular surgery and rheumatology outpatient (6) Chronic kidney disease, stage IV (severe): Code(s): N18.4 - Chronic kidney disease, stage 4 (severe) Status: Chronic Assessment and Plan: Baseline appears to be 1.9-2.1, currently 2.1 Monitor (7) Diabetes mellitus with chronic kidney disease: Qualifiers: Chronic kidney disease stage: stage 4 (severe) Diabetes mellitus type: type 2 Code(s): E11.22 - Type 2 diabetes mellitus with diabetic chronic kidney disease Status: Chronic Assessment and Plan: Accu-Cheks, sliding scale insulin, check A1c Blood glucose reviewed 04/10 (8) Cancer of overlapping sites of bladder: Code(s): C67.8 - Malignant neoplasm of overlapping sites of bladder Status: Acute Assessment and Plan: Per outpatient management (9) Hyperlipidemia: Qualifiers: Hyperlipidemia type: unspecified Qualified Code(s): E78.5 - Hyperlipidemia, unspecified Code(s): E78.5 - Hyperlipidemia, unspecified Status: Acute (10) COPD (chronic obstructive pulmonary disease): Qualifiers: COPD type: unspecified COPD Qualified Code(s): J44.9 - Chronic obstructive pulmonary disease, unspecified Code(s): J44.9 - Chronic obstructive pulmonary disease, unspecified Status: Acute Assessment and Plan: Does not appear to be in an exacerbation Plan DVT prophylaxis with lovenox GI prophylaxis not indicated Code status full code Subjective Date/time seen: 04/10/23 08:46 Interval history: 82-year-old male with history of stroke, metastatic bladder cancer, diabetes other comorbidities is presenting with altered mental status and currently being worked up for possible CVA and UTI. No overnight events noted. No chest pain or shortness of breath. No nausea, vomiting or diarrhea. No fevers or chills. patient's symptoms are significantly improving. Review of Systems Review of Systems: 12 point review of systems was assessed and was negative except as noted in the HPI Exam Narrative: General: No acute distress, alert and oriented per baseline HEENT: Atraumatic, normocephalic, mucous membranes moist CV: Regular rate and rhythm, S1, S2 Lungs: Clear to auscultation bilaterally, no rales or crackles noted, no wheezes, good air entry Abdomen: Soft, nontender, nondistended Extremities: Normal to inspection Skin: No rashes noted, no lesions or wounds seen Psych: Euthymic, normal affect Neuro: Cranial nerves 2-12 grossly intact, strength +5/5 upper and lower extremities bilaterally, improved WFD Objective Data Vital Signs Vital Signs: Vital Signs - 24 hr 04/09/23 11:35 04/09/23 12:00 04/09/23 11:24 Temperature 97.6 F Pulse Rate 84 Respiratory Rate 22 H Blood Pressure 159/70 H
[2023-04-10 09:19] LABS: Glucose Point of Care 65 mg/dl (65-105)
--- NOTE | 2023-04-10 11:00 | P.PNNP_ITS ---
Progress Note: A&P Assessment and Plan (1) Hyponatremia: Code(s): E87.1 - Hypo-osmolality and hyponatremia Status: Chronic Assessment and Plan: * chronic issue since September 2022 if not longer * baseline sodium level runs 127 - 137mmol/L * risk factors for low sodium * chronic kidney disease * known malignancy (bladder cancer) * lung disease (COPD) * HCTZ use * evaluation to date: * urine electrolytes prerenal * TSH oaky and cortisol level reasonable (but already on steroids) * UPEP/SPEP checked in the past and negative * suspect secondary to CKD and cancer * will hold HCTZ for now * follow trend of repeat sodium levels (2) Chronic kidney disease, stage IV (severe): Code(s): N18.4 - Chronic kidney disease, stage 4 (severe) Status: Chronic Assessment and Plan: * baseline creatinine runs 1.7 - 2.4mg/dl in the last year or so * due to hypertension, diabetes, obstructive sleep apnea, vascular disease, and age-related change based on outpatient evalution * follows with me in the office for CKD management (3) Aphasia: Code(s): R47.01 - Aphasia Status: Acute Assessment and Plan: * as noted on presentation * Neurology recommendations noted * imaging done to date reviewed * continue supportive therapy (4) UTI (urinary tract infection): Code(s): N39.0 - Urinary tract infection, site not specified Status: Acute Assessment and Plan: * possible based on admission UA * on empiric antibiotics * urine culture negative to date (5) Hypertension: Qualifiers: Hypertension type: unspecified Qualified Code(s): I10 - Essential (primary) hypertension Code(s): I10 - Essential (primary) hypertension Status: Acute Assessment and Plan: * running a bit high at this time * resumed on home medications * PRN IV medications * follow trend of hemodynamics (6) Diabetes mellitus with chronic kidney disease: Qualifiers: Chronic kidney disease stage: stage 4 (severe) Diabetes mellitus type: type 2 Code(s): E11.22 - Type 2 diabetes mellitus with diabetic chronic kidney disease Status: Chronic Assessment and Plan: * follow accu-cheks * glycemic control per hospitalists Will continue to follow. Subjective Date/time seen: 04/10/23 11:00 Interval history: Follow-up for chronic kidney disease and hyponatremia. Since last seen, he appears to be doing better in general; no apparent distress noted at the time of my visit; renal function and sodium level appear relatively stable; no issues/events overnight or earlier this morning. Exam Narrative: General: elderly but WD/WN male in NAD Heart: normal S1 and S2; no rub Lungs: clear to auscultation Abdomen: soft, nontender, nondistended, positive bowel sounds Extremities: no cyanosis or clubbing; no edema Skin: warm and dry Objective Data Vital Signs Vital Signs: Vital Signs Temp Pulse Resp BP Pulse Ox O2 Del Method 04/10/23 10:00 76 04/10/23 08:00 65 04/10/23 08:00 97 F L 77 20 197/83 H 97 04/10/23 08:00 91 Room Air 04/10/23 08:25 84 04/10/23 06:00 59 L 04/10/23 04:00 61 04/10/23 04:00 Room Air 04/10/23 03:10 97 F L 69 24 H 174/72 H
--- NOTE | 2023-04-10 11:00 | PM.PNNEP ---
Progress Note: A&P Assessment and Plan (1) Hyponatremia: Code(s): E87.1 - Hypo-osmolality and hyponatremia Status: Chronic Assessment and Plan: chronic issue since September 2022 if not longer baseline sodium level runs 127 - 137mmol/L risk factors for low sodium chronic kidney disease known malignancy (bladder cancer) lung disease (COPD) HCTZ use evaluation to date: urine electrolytes prerenal TSH oaky and cortisol level reasonable (but already on steroids) UPEP/SPEP checked in the past and negative suspect secondary to CKD and cancer will hold HCTZ for now follow trend of repeat sodium levels (2) Chronic kidney disease, stage IV (severe): Code(s): N18.4 - Chronic kidney disease, stage 4 (severe) Status: Chronic Assessment and Plan: baseline creatinine runs 1.7 - 2.4mg/dl in the last year or so due to hypertension, diabetes, obstructive sleep apnea, vascular disease, and age-related change based on outpatient evalution follows with me in the office for CKD management (3) Aphasia: Code(s): R47.01 - Aphasia Status: Acute Assessment and Plan: as noted on presentation Neurology recommendations noted imaging done to date reviewed continue supportive therapy (4) UTI (urinary tract infection): Code(s): N39.0 - Urinary tract infection, site not specified Status: Acute Assessment and Plan: possible based on admission UA on empiric antibiotics urine culture negative to date (5) Hypertension: Qualifiers: Hypertension type: unspecified Qualified Code(s): I10 - Essential (primary) hypertension Code(s): I10 - Essential (primary) hypertension Status: Acute Assessment and Plan: running a bit high at this time resumed on home medications PRN IV medications follow trend of hemodynamics (6) Diabetes mellitus with chronic kidney disease: Qualifiers: Chronic kidney disease stage: stage 4 (severe) Diabetes mellitus type: type 2 Code(s): E11.22 - Type 2 diabetes mellitus with diabetic chronic kidney disease Status: Chronic Assessment and Plan: follow accu-cheks glycemic control per hospitalists Will continue to follow. Subjective Date/time seen: 04/10/23 11:00 Interval history: Follow-up for chronic kidney disease and hyponatremia. Since last seen, he appears to be doing better in general; no apparent distress noted at the time of my visit; renal function and sodium level appear relatively stable; no issues/events overnight or earlier this morning. Exam Narrative: General: elderly but WD/WN male in NAD Heart: normal S1 and S2; no rub Lungs: clear to auscultation Abdomen: soft, nontender, nondistended, positive bowel sounds Extremities: no cyanosis or clubbing; no edema Skin: warm and dry Objective Data Vital Signs Vital Signs: Vital Signs Temp Pulse Resp BP Pulse Ox O2 Del Method 04/10/23 10:00 76 04/10/23 08:00 65 04/10/23 08:00 97 F L 77 20 197/83 H 97 04/10/23 08:00 91 Room Air 04/10/23 08:25 84 04/10/23 06:00 59 L 04/10/23 04:00 61 04/10/23 04:00 Room Air 04/10/23 03:10 97 F L 69 24 H 174/72 H 91 04/10/23 02:00 72 04/10/23 00:00 68 04/09/23 23:35 98 Room Air 04/10/23 00:00 Room Air 04/09/23 23:13 97.2 F L 67 22 H 159/61 H 98 04/09/23 22:00 68 04/09/23 20:00 Room Air 04/09/23 20:00 72 04/09/23 20:00 98.2 F 72 26 H 174/81 H 96 04/09/23 18:00 72 04/09/23 16:00 98 Room Air 04/09/23 16:00 68 04/09/23 14:00 73 04/09/23 16:46 79 04/09/23 16:00 97.5 F L 74 15 157/82 H 98 Intake/Output Intake/Output: Intake & Output 04/07/23 04/08/23 04/09/23 04/10/23 23:59 23:59 23:59 23:59 Intake Total 910 1340 890 Output Total 1275 200 325 B
[2023-04-10] MEDS: predniSONE 10 MG TABLET PO (14:44)
[2023-04-10] MEDS: ACETAMINOPHEN 500 MG TABLET 1000 MG PO (16:03)
[2023-04-10 17:23] LABS: Glucose Point of Care 186 mg/dl (65-105)
[2023-04-10 22:06] LABS: Glucose Point of Care 338 mg/dl (65-105)
[2023-04-10] MEDS: IRBESARTAN 150 MG TABLET 300 MG PO (22:11)
[2023-04-10] MEDS: SIMVASTATIN 20 MG TABLET 40 MG PO (22:11)
[2023-04-11] VITALS (15 sets, daily range): BP systolic 129–177; BP diastolic 50–73; PULSE 55–93; RESP 20–24; TEMP 36.4–36.8; O2SAT 93–98
[2023-04-11 05:20] LABS: Alanine Aminotransferase 17 U/L (6-50); Alkaline Phosphatase 72 U/L (38-126); Anion Gap 2 mmol/L (8-16); Aspartate Amino Transferase 20 U/L (17-59); Bilirubin,Total 0.5 mg/dL (0.2-1.3); Blood Urea Nitrogen 56 mg/dL (9-20); Calcium 7.8 mg/dL (8.4-10.2); Carbon Dioxide 30 mmol/L (22-30); Chloride 97 mmol/L (98-107); Estimated CRCL calculation 22 ml/min; Estimated Glomerular Filt Rate 24; Glucose 302 mg/dL (65-110); Potassium 3.9 mmol/L (3.4-5.0); Sodium 129 mmol/L (137-145)
[2023-04-11 05:35] LABS: Eosinophils Percent Auto 0.4 % (0-4.4); Hematocrit 31.4 % (42.0-52.0); Immature Granulocyte Absolute 0.05 K/mm3 (0.00-0.031); Immature Granulocyte Percent A 0.7 % (0-0.5); Lymphocytes Absolute Auto 1.12 K/mm3 (0.9-3.2); Lymphocytes Percent Auto 15.1 % (18.3-44.2); Mean Corpuscular HGB Conc 31.8 g/dl (32-36); Mean Corpuscular Hemoglobin 30.1 pg (26-34); Mean Corpuscular Volume 94.6 fl (80-100); Mean Platelet Volume 9.5 fl (7.4-10.4); Monocytes Absolute Auto 0.9 K/mm3 (0.1-0.6); Monocytes Percent Auto 11.6 % (2.6-8.5); Neutrophils Absolute Auto 5.3 K/mm3 (1.3-6.7); Neutrophils Percent Auto 72.2 % (45.5-73.1); Platelet Count Result 231 k/mm3 (150-375); Red Blood Count 3.32 M/mm3 (4.6-6.20); Red Cell Distribution Width 17.2 % (11.5-14.5); White Blood Count 7.4 K/mm3 (4.5-10.0)
[2023-04-11 07:59] LABS: Glucose Point of Care 273 mg/dl (65-105)
--- NOTE | 2023-04-11 08:09 | PM.IMPN ---
Progress Note: A&P Assessment and Plan (1) Hyponatremia: Code(s): E87.1 - Hypo-osmolality and hyponatremia Status: Chronic Assessment and Plan: Appreciate nephrology consultation Cont fluid restriction, hold HCTZ, irbesartan (2) Chronic kidney disease, stage IV (severe): Code(s): N18.4 - Chronic kidney disease, stage 4 (severe) Status: Chronic Assessment and Plan: Baseline appears to be 1.9-2.1, currently 2.6, worsening (3) Chronic arterial ischemic stroke: Code(s): I69.30 - Unspecified sequelae of cerebral infarction Status: Acute Assessment and Plan: Appreciate neurology consultation Echo with bubble study negative for PFO, EF >70% grade I diastolic dysfunction noted (4) Aphasia: Code(s): R47.01 - Aphasia Status: Acute Assessment and Plan: See above, unsure of etiology, MRI negative for stroke May need LP to rule out encephalitis per Neurology (5) Vasculitis: Code(s): I77.6 - Arteritis, unspecified Status: Acute Assessment and Plan: Continue prednisone for now, being seen by vascular surgery and rheumatology outpatient (6) Diabetes mellitus with chronic kidney disease: Qualifiers: Chronic kidney disease stage: stage 4 (severe) Diabetes mellitus type: type 2 Code(s): E11.22 - Type 2 diabetes mellitus with diabetic chronic kidney disease Status: Chronic Assessment and Plan: Accu-Cheks, sliding scale insulin, A1c 6.2 Blood glucose reviewed 04/11 (7) Cancer of overlapping sites of bladder: Code(s): C67.8 - Malignant neoplasm of overlapping sites of bladder Status: Acute Assessment and Plan: Per outpatient management (8) UTI (urinary tract infection): Code(s): N39.0 - Urinary tract infection, site not specified Status: Acute Assessment and Plan: Rocephin started 04/07 Follow-up urine culture 04/10: urine culture negative, d/c abx (9) Hyperlipidemia: Qualifiers: Hyperlipidemia type: unspecified Qualified Code(s): E78.5 - Hyperlipidemia, unspecified Code(s): E78.5 - Hyperlipidemia, unspecified Status: Acute (10) COPD (chronic obstructive pulmonary disease): Qualifiers: COPD type: unspecified COPD Qualified Code(s): J44.9 - Chronic obstructive pulmonary disease, unspecified Code(s): J44.9 - Chronic obstructive pulmonary disease, unspecified Status: Acute Assessment and Plan: Does not appear to be in an exacerbation Plan DVT prophylaxis with lovenox GI prophylaxis not indicated Code status full code Subjective Date/time seen: 04/11/23 08:09 Interval history: 82-year-old male with history of stroke, metastatic bladder cancer, diabetes other comorbidities is presenting with altered mental status and currently being worked up for possible CVA and UTI. No overnight events noted. No chest pain or shortness of breath. No nausea, vomiting or diarrhea. No fevers or chills. patient's symptoms are significantly improving. Review of Systems Review of Systems: 12 point review of systems was assessed and was negative except as noted in the HPI Exam Narrative: General: No acute distress, alert and oriented per baseline HEENT: Atraumatic, normocephalic, mucous membranes moist CV: Regular rate and rhythm, S1, S2 Lungs: Clear to auscultation bilaterally, no rales or crackles noted, no wheezes, good air entry Abdomen: Soft, nontender, nondistended Extremities: Normal to inspection Skin: No rashes noted, no lesions or wounds seen Psych: Euthymic, normal affect Neuro: Cranial nerves 2-12 grossly intact, strength +5/5 upper and lower extremities bilaterally, improved WFD Objective Data Vital Signs Vital Signs: Vital Signs - 24 hr 04/10/23 08:25 04/10/23 10:00 04/10/23 12:00 Temperature Pulse Rate 84 76 Respiratory Rate
[2023-04-11] MEDS: ENOXAPARIN 40 MG/0.4 ML SYRINGE SUB-Q (09:30)
[2023-04-11] MEDS: METOPROLOL TARTRATE 50 MG TAB PO ×2 (09:31→18:44)
[2023-04-11] MEDS: FELODIPINE 5 MG TAB CR PO (09:31)
[2023-04-11] MEDS: ASPIRIN 81 MG CHEWABLE TABLET PO (09:31)
[2023-04-11] MEDS: PANTOPRAZOLE 40 MG TABLET PO (09:31)
[2023-04-11] MEDS: predniSONE 10 MG TABLET PO (09:33)
[2023-04-11] MEDS: INSULIN GLARGINE (*BKC) 100 UNITS/ML 18 UNITS SUB-Q (09:33)
[2023-04-11] MEDS: SODIUM CHLORIDE 0.9% IV 500 ML 75 ML IV CONT (10:25)
--- NOTE | 2023-04-11 10:56 | P.PNNP_ITS ---
Progress Note: A&P Assessment and Plan (1) Hyponatremia: Code(s): E87.1 - Hypo-osmolality and hyponatremia Status: Chronic Assessment and Plan: * chronic issue since September 2022 if not longer * baseline sodium level runs 127 - 137mmol/L * risk factors for low sodium * chronic kidney disease * known malignancy (bladder cancer) * lung disease (COPD) * HCTZ use * evaluation to date: * urine electrolytes prerenal * TSH oky and cortisol level reasonable (but already on steroids) * UPEP/SPEP checked in the past and negative * suspect secondary to CKD and cancer * will hold HCTZ for now * follow trend of repeat sodium levels (2) Chronic kidney disease, stage IV (severe): Code(s): N18.4 - Chronic kidney disease, stage 4 (severe) Status: Chronic Assessment and Plan: * baseline creatinine runs 1.7 - 2.4mg/dl in the last year or so * due to hypertension, diabetes, obstructive sleep apnea, vascular disease, and age-related change based on outpatient evaluation * will give a trial of IVFs today * urine electrolytes look prerenal * renal U/S results noted -- unclear if right hydronephrosis affecting kidney function * ARB on hold * follows with me in the office for CKD management (3) Aphasia: Code(s): R47.01 - Aphasia Status: Acute Assessment and Plan: * as noted on presentation * Neurology recommendations noted * imaging done to date reviewed * continue supportive therapy (4) Hypertension: Qualifiers: Hypertension type: unspecified Qualified Code(s): I10 - Essential (primary) hypertension Code(s): I10 - Essential (primary) hypertension Status: Acute Assessment and Plan: * running a bit high at this time * resumed on home medications * PRN IV medications * follow trend of hemodynamics (5) Diabetes mellitus with chronic kidney disease: Qualifiers: Diabetes mellitus type: type 2 Chronic kidney disease stage: stage 4 (severe) Code(s): E11.22 - Type 2 diabetes mellitus with diabetic chronic kidney disease Status: Chronic Assessment and Plan: * follow accu-cheks * glycemic control per hospitalists Will continue to follow. Subjective Date/time seen: 04/11/23 10:56 Interval history: Follow-up for chronic kidney disease and hyponatremia. Continues to do well in general; no new issues or problems voiced at the time of visit; sodium a bit lower and creatinine a bit higher by AM labs; no events overnight or earlier this morning. Exam Narrative: General: elderly but WD/WN male in NAD Heart: normal S1 and S2; no rub Lungs: clear to auscultation Abdomen: soft, nontender, nondistended, positive bowel sounds Extremities: no cyanosis or clubbing; no edema Skin: warm and intact Objective Data Vital Signs Vital Signs: Vital Signs Temp Pulse Resp BP Pulse Ox O2 Del Method 04/11/23 10:00 56 L 04/11/23 08:00 78 04/11/23 09:31 93 04/11/23 08:00 98.0 F 69 20 177/73 H 97 04/11/23 06:00 69 04/11/23 04:00 69 04/11/23 04:00 Room Air 04/11/23 04:00 97.6 F 69 20 152/62 H 96 04/11/23 00:00 98.2 F 66 22 H 139/73 97 04/11/23 02:00 68 04/11/23 00:00 65
--- NOTE | 2023-04-11 10:56 | PM.PNNEP ---
Progress Note: A&P Assessment and Plan (1) Hyponatremia: Code(s): E87.1 - Hypo-osmolality and hyponatremia Status: Chronic Assessment and Plan: chronic issue since September 2022 if not longer baseline sodium level runs 127 - 137mmol/L risk factors for low sodium chronic kidney disease known malignancy (bladder cancer) lung disease (COPD) HCTZ use evaluation to date: urine electrolytes prerenal TSH oky and cortisol level reasonable (but already on steroids) UPEP/SPEP checked in the past and negative suspect secondary to CKD and cancer will hold HCTZ for now follow trend of repeat sodium levels (2) Chronic kidney disease, stage IV (severe): Code(s): N18.4 - Chronic kidney disease, stage 4 (severe) Status: Chronic Assessment and Plan: baseline creatinine runs 1.7 - 2.4mg/dl in the last year or so due to hypertension, diabetes, obstructive sleep apnea, vascular disease, and age-related change based on outpatient evaluation will give a trial of IVFs today urine electrolytes look prerenal renal U/S results noted -- unclear if right hydronephrosis affecting kidney function ARB on hold follows with me in the office for CKD management (3) Aphasia: Code(s): R47.01 - Aphasia Status: Acute Assessment and Plan: as noted on presentation Neurology recommendations noted imaging done to date reviewed continue supportive therapy (4) Hypertension: Qualifiers: Hypertension type: unspecified Qualified Code(s): I10 - Essential (primary) hypertension Code(s): I10 - Essential (primary) hypertension Status: Acute Assessment and Plan: running a bit high at this time resumed on home medications PRN IV medications follow trend of hemodynamics (5) Diabetes mellitus with chronic kidney disease: Qualifiers: Diabetes mellitus type: type 2 Chronic kidney disease stage: stage 4 (severe) Code(s): E11.22 - Type 2 diabetes mellitus with diabetic chronic kidney disease Status: Chronic Assessment and Plan: follow accu-cheks glycemic control per hospitalists Will continue to follow. Subjective Date/time seen: 04/11/23 10:56 Interval history: Follow-up for chronic kidney disease and hyponatremia. Continues to do well in general; no new issues or problems voiced at the time of visit; sodium a bit lower and creatinine a bit higher by AM labs; no events overnight or earlier this morning. Exam Narrative: General: elderly but WD/WN male in NAD Heart: normal S1 and S2; no rub Lungs: clear to auscultation Abdomen: soft, nontender, nondistended, positive bowel sounds Extremities: no cyanosis or clubbing; no edema Skin: warm and intact Objective Data Vital Signs Vital Signs: Vital Signs Temp Pulse Resp BP Pulse Ox O2 Del Method 04/11/23 10:00 56 L 04/11/23 08:00 78 04/11/23 09:31 93 04/11/23 08:00 98.0 F 69 20 177/73 H 97 04/11/23 06:00 69 04/11/23 04:00 69 04/11/23 04:00 Room Air 04/11/23 04:00 97.6 F 69 20 152/62 H 96 04/11/23 00:00 98.2 F 66 22 H 139/73 97 04/11/23 02:00 68 04/11/23 00:00 65 04/10/23 22:00 56 L 04/10/23 20:00 60 04/11/23 00:00 Room Air 04/10/23 20:00 Room Air 04/10/23 20:00 97.2 F L 61 20 161/54 H 94 04/10/23 18:00 69 04/10/23 16:00 67 04/10/23 16:00 97.7 F 66 22 H 161/76 H 98 04/10/23 16:00 96 Room Air 04/10/23 16:11 62 04/10/23 14:00 93 Intake/Output Intake/Output: Intake & Output 04/08/23 04/09/23 04/10/23 04/11/23 23:59 23:59 23:59 23:59 Intake Total 910 1340 1380 855 Output Total 1275 200 925 600 Balance -365 1140 455 255 Meds/Results Medications: Active Medications Generic Name Dose Route Start Last Admin Trade Name Freq PRN Reason Stop Dose Admin
[2023-04-11 11:30] LABS: Glucose Point of Care 332 mg/dl (65-105)
--- NOTE | 2023-04-11 12:43 | PCNFU ---
Nutrition Follow-Up Complete: Inadequate oral intake related to chronic illness, NPO status as evidenced by 7% weight loss/ 3 months Goal:Advance diet as medically able Pt current nutrition is Diabetic. Nutrition recommendation: Add glucerna shakes daily as needed Last recorded weight is 95.5 kg. Bowel Motility: +BM 04/09 Labs Reviewed: Hgb:10, HCT:31.4, Alb:3.0, NA:129, BUN:56, Cr:2.6, Glu:332 Meds Noted: HCTZ, lantus Skin: no skin issues noted Additional Notes: Pt diet advanced to diabetic consistent carb, good intake at 100% of meals, Noted a 1800ml fluid restriction. Encourage good continued po intake. Monitoring for intake, labs, weights, plan of care Follow up in 7 days
[2023-04-11] MEDS: INSULIN ASPART (*BKC) 100 UNITS/ML SUB-Q ×2 (14:04→18:44)
[2023-04-11 16:20] LABS: Glucose Point of Care 331 mg/dl (65-105)
[2023-04-11 19:59] LABS: Glucose Point of Care 380 mg/dl (65-105)
[2023-04-11] MEDS: SIMVASTATIN 20 MG TABLET 40 MG PO (21:04)
--- NOTE | 2023-04-11 23:37 | PCRCNOTE ---
Pt has home cpap machine in room but refuses to wear it and states he does not plan to wear it for his hospital stay. There is no CPAP order in. Nurse notified of this.
[2023-04-12] VITALS (9 sets, daily range): BP systolic 141–198; BP diastolic 58–69; PULSE 52–77; RESP 18–20; TEMP 36.1–36.7; O2SAT 96–97
[2023-04-12] MEDS: ACETAMINOPHEN 500 MG TABLET 1000 MG PO (04:10)
[2023-04-12 05:02] LABS: Basophils Percent Auto 0.1 % (0.2-1.2); Eosinophils Absolute Auto 0.1 K/mm3 (0-0.3); Eosinophils Percent Auto 0.8 % (0-4.4); Hematocrit 33.2 % (42.0-52.0); Hemoglobin 10.7 g/dL (14.0-18.0); Immature Granulocyte Absolute 0.03 K/mm3 (0.00-0.031); Immature Granulocyte Percent A 0.4 % (0-0.5); Lymphocytes Absolute Auto 1.19 K/mm3 (0.9-3.2); Lymphocytes Percent Auto 16.3 % (18.3-44.2); Mean Corpuscular HGB Conc 32.2 g/dl (32-36); Mean Corpuscular Hemoglobin 30.1 pg (26-34); Mean Corpuscular Volume 93.5 fl (80-100); Mean Platelet Volume 9.2 fl (7.4-10.4); Monocytes Absolute Auto 1.1 K/mm3 (0.1-0.6); Monocytes Percent Auto 14.9 % (2.6-8.5); Neutrophils Absolute Auto 4.9 K/mm3 (1.3-6.7); Neutrophils Percent Auto 67.5 % (45.5-73.1); Platelet Count Result 238 k/mm3 (150-375); Red Blood Count 3.55 M/mm3 (4.6-6.20); Red Cell Distribution Width 16.6 % (11.5-14.5); White Blood Count 7.3 K/mm3 (4.5-10.0)
[2023-04-12 05:13] LABS: Alanine Aminotransferase 18 U/L (6-50); Albumin Level 3.2 g/dL (3.5-5.1); Alkaline Phosphatase 65 U/L (38-126); Anion Gap 2 mmol/L (8-16); Aspartate Amino Transferase 27 U/L (17-59); Bilirubin,Total 0.6 mg/dL (0.2-1.3); Blood Urea Nitrogen 56 mg/dL (9-20); Calcium 8.3 mg/dL (8.4-10.2); Carbon Dioxide 32 mmol/L (22-30); Chloride 96 mmol/L (98-107); Estimated CRCL calculation 24 ml/min; Estimated Glomerular Filt Rate 26; Glucose 180 mg/dL (65-110); Potassium 3.9 mmol/L (3.4-5.0); Sodium 130 mmol/L (137-145)
--- NOTE | 2023-04-12 07:55 | PM.IMPN ---
Progress Note: A&P Assessment and Plan (1) Hyponatremia: Code(s): E87.1 - Hypo-osmolality and hyponatremia Status: Chronic Assessment and Plan: Appreciate nephrology consultation Cont fluid restriction, hold HCTZ, irbesartan Stable at 130, monitor (2) Chronic kidney disease, stage IV (severe): Code(s): N18.4 - Chronic kidney disease, stage 4 (severe) Status: Chronic Assessment and Plan: Baseline appears to be 1.9-2.1, improving at 2.4 today (3) Chronic arterial ischemic stroke: Code(s): I69.30 - Unspecified sequelae of cerebral infarction Status: Acute Assessment and Plan: Appreciate neurology consultation Echo with bubble study negative for PFO, EF >70% grade I diastolic dysfunction noted (4) Aphasia: Code(s): R47.01 - Aphasia Status: Acute Assessment and Plan: See above, unsure of etiology, MRI negative for stroke May need LP to rule out encephalitis per Neurology Resolved (5) Vasculitis: Code(s): I77.6 - Arteritis, unspecified Status: Acute Assessment and Plan: Continue prednisone and iodine for now, being seen by vascular surgery and rheumatology outpatient (6) Diabetes mellitus with chronic kidney disease: Qualifiers: Chronic kidney disease stage: stage 4 (severe) Diabetes mellitus type: type 2 Code(s): E11.22 - Type 2 diabetes mellitus with diabetic chronic kidney disease Status: Chronic Assessment and Plan: Accu-Cheks, sliding scale insulin, A1c 6.2 Blood glucose reviewed 04/12 (7) Cancer of overlapping sites of bladder: Code(s): C67.8 - Malignant neoplasm of overlapping sites of bladder Status: Acute Assessment and Plan: Per outpatient management (8) UTI (urinary tract infection): Code(s): N39.0 - Urinary tract infection, site not specified Status: Acute Assessment and Plan: Rocephin started 04/07 Follow-up urine culture 04/10: urine culture negative, d/c abx (9) Hyperlipidemia: Qualifiers: Hyperlipidemia type: unspecified Qualified Code(s): E78.5 - Hyperlipidemia, unspecified Code(s): E78.5 - Hyperlipidemia, unspecified Status: Acute (10) COPD (chronic obstructive pulmonary disease): Qualifiers: COPD type: unspecified COPD Qualified Code(s): J44.9 - Chronic obstructive pulmonary disease, unspecified Code(s): J44.9 - Chronic obstructive pulmonary disease, unspecified Status: Acute Assessment and Plan: Does not appear to be in an exacerbation Plan DVT prophylaxis with lovenox GI prophylaxis not indicated Code status full code Subjective Date/time seen: 04/12/23 07:55 Interval history: 82-year-old male with history of stroke, metastatic bladder cancer, diabetes other comorbidities is presenting with altered mental status and currently being worked up for possible CVA and UTI. No overnight events noted. No chest pain or shortness of breath. No nausea, vomiting or diarrhea. No fevers or chills. Word-finding difficulty is resolved. Review of Systems Review of Systems: 12 point review of systems was assessed and was negative except as noted in the HPI Exam Narrative: General: No acute distress, alert and oriented per baseline HEENT: Atraumatic, normocephalic, mucous membranes moist CV: Regular rate and rhythm, S1, S2 Lungs: Clear to auscultation bilaterally, no rales or crackles noted, no wheezes, good air entry Abdomen: Soft, nontender, nondistended Extremities: Normal to inspection Skin: No rashes noted, no lesions or wounds seen Psych: Euthymic, normal affect Neuro: Cranial nerves 2-12 grossly intact, strength +5/5 upper and lower extremities bilaterally, no word-finding difficulty nor slurred speech noted Objective Data Vital Signs Vital Signs: Vital Signs - 24 hr 04/11/23 08:00 04/11/23 09:31
[2023-04-12 08:15] LABS: Glucose Point of Care 142 mg/dl (65-105)
[2023-04-12] MEDS: ASPIRIN 81 MG CHEWABLE TABLET PO (09:06)
[2023-04-12] MEDS: FELODIPINE 5 MG TAB CR PO (09:06)
[2023-04-12] MEDS: ENOXAPARIN 40 MG/0.4 ML SYRINGE SUB-Q (09:06)
[2023-04-12] MEDS: predniSONE 10 MG TABLET PO (09:06)
[2023-04-12] MEDS: INSULIN GLARGINE (*BKC) 100 UNITS/ML 18 UNITS SUB-Q (09:07)
[2023-04-12] MEDS: PANTOPRAZOLE 40 MG TABLET PO (09:07)
[2023-04-12] MEDS: METOPROLOL TARTRATE 50 MG TAB PO (09:07)
--- NOTE | 2023-04-12 10:00 | P.PNNP_ITS ---
Progress Note: A&P Assessment and Plan (1) Hyponatremia: Code(s): E87.1 - Hypo-osmolality and hyponatremia Status: Chronic Assessment and Plan: * chronic issue since September 2022 if not longer * baseline sodium level runs 127 - 137mmol/L * risk factors for low sodium * chronic kidney disease * known malignancy (bladder cancer) * lung disease (COPD) * HCTZ use * evaluation to date: * urine electrolytes prerenal * TSH oky and cortisol level reasonable (but already on steroids) * UPEP/SPEP checked in the past and negative * suspect secondary to CKD and cancer * will hold HCTZ for now * follow trend of repeat sodium levels (2) Chronic kidney disease, stage IV (severe): Code(s): N18.4 - Chronic kidney disease, stage 4 (severe) Status: Chronic Assessment and Plan: * baseline creatinine runs 1.7 - 2.4mg/dl in the last year or so * due to hypertension, diabetes, obstructive sleep apnea, vascular disease, and age-related change based on outpatient evaluation * s/p trial of IVFs yesterday (on 04/11/23) * urine electrolytes look prerenal * renal U/S results noted -- unclear if right hydronephrosis affecting kidney function * ARB on hold - probably okay to resume on discharge * follows with me in the office for CKD management (3) Aphasia: Code(s): R47.01 - Aphasia Status: Acute Assessment and Plan: * as noted on presentation * Neurology recommendations noted * imaging done to date reviewed * continue supportive therapy (4) Hypertension: Qualifiers: Hypertension type: unspecified Qualified Code(s): I10 - Essential (primary) hypertension Code(s): I10 - Essential (primary) hypertension Status: Acute Assessment and Plan: * running a bit high at this time * resumed on home medications * PRN IV medications * follow trend of hemodynamics (5) Diabetes mellitus with chronic kidney disease: Qualifiers: Chronic kidney disease stage: stage 4 (severe) Diabetes mellitus type: type 2 Code(s): E11.22 - Type 2 diabetes mellitus with diabetic chronic kidney disease Status: Chronic Assessment and Plan: * follow accu-cheks * glycemic control per hospitalists Will continue to follow. Subjective Date/time seen: 04/12/23 10:00 Interval history: Follow-up for chronic kidney disease and hyponatremia. Renal function and sodium better following trial of IVFs yesterday; no new issues or concerns voiced at this time; overall, he states he feels reasonably well. Exam Narrative: General: elderly but WD/WN male in NAD Heart: normal S1 and S2; no rub Lungs: clear to auscultation Abdomen: soft, nontender, nondistended, positive bowel sounds Extremities: no cyanosis or clubbing; no edema Skin: no rash or nodules Objective Data Vital Signs Vital Signs: Vital Signs Temp Pulse Resp BP Pulse Ox O2 Del Method 04/12/23 09:07 75 04/12/23 08:00 97.3 F L 60 20 189/69 H 96 04/12/23 06:00 57 L 04/12/23 04:00 Room Air 04/12/23 04:00 61 04/12/23 03:58 97.5 F L 55 L 20 198/64 H 96 04/12/23 02:00 60 04/12/23 00:00 Room Air 04/11/23 20:00 Room Air 04/12/23 00:00 67 04/11/23 22:00 55 L
--- NOTE | 2023-04-12 10:00 | PM.PNNEP ---
Progress Note: A&P Assessment and Plan (1) Hyponatremia: Code(s): E87.1 - Hypo-osmolality and hyponatremia Status: Chronic Assessment and Plan: chronic issue since September 2022 if not longer baseline sodium level runs 127 - 137mmol/L risk factors for low sodium chronic kidney disease known malignancy (bladder cancer) lung disease (COPD) HCTZ use evaluation to date: urine electrolytes prerenal TSH oky and cortisol level reasonable (but already on steroids) UPEP/SPEP checked in the past and negative suspect secondary to CKD and cancer will hold HCTZ for now follow trend of repeat sodium levels (2) Chronic kidney disease, stage IV (severe): Code(s): N18.4 - Chronic kidney disease, stage 4 (severe) Status: Chronic Assessment and Plan: baseline creatinine runs 1.7 - 2.4mg/dl in the last year or so due to hypertension, diabetes, obstructive sleep apnea, vascular disease, and age-related change based on outpatient evaluation s/p trial of IVFs yesterday (on 04/11/23) urine electrolytes look prerenal renal U/S results noted -- unclear if right hydronephrosis affecting kidney function ARB on hold - probably okay to resume on discharge follows with me in the office for CKD management (3) Aphasia: Code(s): R47.01 - Aphasia Status: Acute Assessment and Plan: as noted on presentation Neurology recommendations noted imaging done to date reviewed continue supportive therapy (4) Hypertension: Qualifiers: Hypertension type: unspecified Qualified Code(s): I10 - Essential (primary) hypertension Code(s): I10 - Essential (primary) hypertension Status: Acute Assessment and Plan: running a bit high at this time resumed on home medications PRN IV medications follow trend of hemodynamics (5) Diabetes mellitus with chronic kidney disease: Qualifiers: Chronic kidney disease stage: stage 4 (severe) Diabetes mellitus type: type 2 Code(s): E11.22 - Type 2 diabetes mellitus with diabetic chronic kidney disease Status: Chronic Assessment and Plan: follow accu-cheks glycemic control per hospitalists Will continue to follow. Subjective Date/time seen: 04/12/23 10:00 Interval history: Follow-up for chronic kidney disease and hyponatremia. Renal function and sodium better following trial of IVFs yesterday; no new issues or concerns voiced at this time; overall, he states he feels reasonably well. Exam Narrative: General: elderly but WD/WN male in NAD Heart: normal S1 and S2; no rub Lungs: clear to auscultation Abdomen: soft, nontender, nondistended, positive bowel sounds Extremities: no cyanosis or clubbing; no edema Skin: no rash or nodules Objective Data Vital Signs Vital Signs: Vital Signs Temp Pulse Resp BP Pulse Ox O2 Del Method 04/12/23 09:07 75 04/12/23 08:00 97.3 F L 60 20 189/69 H 96 04/12/23 06:00 57 L 04/12/23 04:00 Room Air 04/12/23 04:00 61 04/12/23 03:58 97.5 F L 55 L 20 198/64 H 96 04/12/23 02:00 60 04/12/23 00:00 Room Air 04/11/23 20:00 Room Air 04/12/23 00:00 67 04/11/23 22:00 55 L 04/11/23 20:00 67 04/12/23 00:00 97.0 F L 52 L 20 181/65 H 97 04/11/23 20:00 97.7 F 60 20 169/58 H 97 04/11/23 18:00 58 L 04/11/23 18:44 60 04/11/23 16:00 97.7 F 66 20 136/58 L 98 04/11/23 16:00 63 04/11/23 14:00 59 L Intake/Output Intake/Output: Intake & Output 04/09/23 04/10/23 04/11/23 04/12/23 23:59 23:59 23:59 23:59 Intake Total 1340 1380 1635 240 Output Total 200 925 600 400 Balance 4013 604 3477 -160 Meds/Results Medications: Active Medications Generic Name Dose Route Start Last Admin Trade Name Freq PRN Reason Stop Dose Admin Acetaminophen 1,000 mg 04/08/23 11:35 04/12/23 04:10
--- NOTE | 2023-04-12 12:23 | PM.DS ---
DS: Admitting Diagnosis Discharge Date 04/12/23 Admitting Diagnosis slurred speech DS: Discharge Diagnosis Discharge Diagnosis (1) Hyponatremia: Code(s): E87.1 - Hypo-osmolality and hyponatremia Status: Chronic Assessment and Plan: Appreciate nephrology consultation Cont fluid restriction, hold HCTZ, irbesartan Stable at 130, monitor (2) Chronic kidney disease, stage IV (severe): Code(s): N18.4 - Chronic kidney disease, stage 4 (severe) Status: Chronic Assessment and Plan: Baseline appears to be 1.9-2.1, improving at 2.4 today (3) Chronic arterial ischemic stroke: Code(s): I69.30 - Unspecified sequelae of cerebral infarction Status: Acute Assessment and Plan: Appreciate neurology consultation Echo with bubble study negative for PFO, EF >70% grade I diastolic dysfunction noted (4) Aphasia: Code(s): R47.01 - Aphasia Status: Acute Assessment and Plan: See above, unsure of etiology, MRI negative for stroke May need LP to rule out encephalitis per Neurology Resolved (5) Vasculitis: Code(s): I77.6 - Arteritis, unspecified Status: Acute Assessment and Plan: Continue prednisone and iodine for now, being seen by vascular surgery and rheumatology outpatient (6) Diabetes mellitus with chronic kidney disease: Qualifiers: Chronic kidney disease stage: stage 4 (severe) Diabetes mellitus type: type 2 Code(s): E11.22 - Type 2 diabetes mellitus with diabetic chronic kidney disease Status: Chronic Assessment and Plan: Accu-Cheks, sliding scale insulin, A1c 6.2 Blood glucose reviewed 04/12 (7) Cancer of overlapping sites of bladder: Code(s): C67.8 - Malignant neoplasm of overlapping sites of bladder Status: Acute Assessment and Plan: Per outpatient management (8) UTI (urinary tract infection): Code(s): N39.0 - Urinary tract infection, site not specified Status: Acute Assessment and Plan: Rocephin started 04/07 Follow-up urine culture 04/10: urine culture negative, d/c abx (9) Hyperlipidemia: Qualifiers: Hyperlipidemia type: unspecified Qualified Code(s): E78.5 - Hyperlipidemia, unspecified Code(s): E78.5 - Hyperlipidemia, unspecified Status: Acute (10) COPD (chronic obstructive pulmonary disease): Qualifiers: COPD type: unspecified COPD Qualified Code(s): J44.9 - Chronic obstructive pulmonary disease, unspecified Code(s): J44.9 - Chronic obstructive pulmonary disease, unspecified Status: Acute Assessment and Plan: Does not appear to be in an exacerbation Plan DVT prophylaxis with lovenox GI prophylaxis not indicated Code status full code DS: Summary Hospital Course Hospital Course: 82-year-old male with history of stroke, metastatic bladder cancer, diabetes other comorbidities is presenting with altered mental status and currently being worked up for possible CVA and UTI. For the UTI, Rocephin started 04/07, 04/10: urine culture negative, d/c abx Patient also hyponatremia acute kidney injury, Nephrology was consulted. Hydrochlorothiazide was discontinued. Symptoms improved. CVA workup negative for stroke. Neurology was consulted and was unsure of the etiology of the slurred speech and word-finding difficulty. All symptoms resolved when sodium and kidney function resolved. Patient was discharged in stable condition with close outpatient follow-up. Please see above and med rec for details. Time Spent with Patient Time attestation: Total time spent providing and/or coordinating discharge services: Exam Narrative: General: No acute distress, alert and oriented per baseline HEENT: Atraumatic, normocephalic, mucous membranes moist CV: Regular rate and rhythm, S1, S2 Lungs: Clear to auscultation bilaterally, no rales or crackles noted, no wheezes,
[2023-04-12 12:30] LABS: Glucose Point of Care 226 mg/dl (65-105)
[2023-04-12] MEDS: INSULIN ASPART (*BKC) 100 UNITS/ML SUB-Q (13:20)
[2023-04-12 22:04] LABS: Osmolality, Urine 438 mOsm/kg (50-1200)
[2023-04-14 18:45] LABS: Chloride Rand Ur <20 mmol/L (32-290); Creatinine Random Urine 41 mg/dL (20-320)
== END 2023-04-12 14:00 | disposition home or self-care (01) | DRG 641 ==
LOC: ANHED 04-08 00:27 → ANHIMU 04-08 03:17 → ANHICU 04-08 04:02 → ANHIMU 04-10 06:35
PROVIDERS: Internal Medicine Nephrology; Admitting Provider Internal Medicine; Emergency Provider Emergency Medicine; PCP Internal Medicine; Visit Provider Student in an Organized Health Care Education/Training Program
DX: E87.1 Hypo-osmolality and hyponatremia (principal); N17.9 Acute kidney failure, unspecified; R47.01 Aphasia; N18.4 Chronic kidney disease, stage 4 (severe); I12.9 Hypertensive chronic kidney disease with stage 1 through stage 4 chronic kidney disease, or unspecified chronic kidney disease; I77.6 Arteritis, unspecified; E11.22 Type 2 diabetes mellitus with diabetic chronic kidney disease; C67.8 Malignant neoplasm of overlapping sites of bladder; E78.5 Hyperlipidemia, unspecified; J44.9 Chronic obstructive pulmonary disease, unspecified; G47.30 Sleep apnea, unspecified; K21.9 Gastro-esophageal reflux disease without esophagitis; E55.9 Vitamin D deficiency, unspecified; D63.1 Anemia in chronic kidney disease; E66.9 Obesity, unspecified; Z68.30 Body mass index [BMI] 30.0-30.9, adult; Z86.73 Personal history of transient ischemic attack (TIA), and cerebral infarction without residual deficits; Z85.46 Personal history of malignant neoplasm of prostate; Z87.891 Personal history of nicotine dependence
CPT/HCPCS: 36415; 70450; 70553; 71045; 76775; 80053; 81001; 82436; 82533; 82570; 82948; 83605; 83735; 83930; 83935; 84145; 84300; 84443; 84484; 84540; 85025; 85610; 85730; 86140; 87040; 87086; 93005; 93880; 96365; 96375; 96376; 97110; 97161; 97165; 97530; 97535; 99285; A9270; A9577; C8929; G0378; J0360; J0696; J1650; J1815; J7040; J7512; Q9957

== ENCOUNTER 2023-04-29 14:02 | Outpatient (CLI) | payer MEDICARE, SELFPAY ==
--- NOTE | ~2023-04-29 | CT_ITS ---
EXAMINATION: CT abdomen pelvis wo con DATE: 04/29/2023 14:26 INDICATION: History of bladder and prostate cancer TECHNIQUE: Computed tomography (CT) of the abdomen and pelvis was performed without intravenous contr ast. The dose-length product (DLP) was 1026.15 mGy-cm. Automated exposure control and iterative recon struction technique were employed. COMPARISON: 02/01/2023 FINDINGS: There is atelectasis of the visualized lower lobes including an area of rounded atelectasis in the left lower lobe. The heart size is normal. Within the limitations of noncontrast examination, the liver, spleen, gallbladder, and adrenal glands are normal. Punctate calcification of the pancrea s are consistent with chronic pancreatitis. There appears to be a subtle persistent soft tissue atten uation mass of the right distal ureter and bladder at the site of the right ureteral insertion causin g moderate right hydroureteronephrosis. The left kidney is unremarkable. There is bulky retroperitone al lymphadenopathy with interval worsening. The largest measured lymph node is a 4.1 cm left retroper itoneal lymph node near the left kidney. Calcified atherosclerosis is noted. There are brachytherapy seeds in the prostate. No free intraperitoneal gas or evidence of bowel obstruction. There is severe lumbar spondylosis. IMPRESSION: 1. 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 2. Bulky retroperitoneal lymphadenopathy with interval worsening, consistent with progression of meta static disease. Reviewed, dictated and finalized at location B. IMPRESSION: 1. Soft tissue mass of the right distal ureter and bladder at the site of the r ight ureteral insertion causing moderate right hydroureteronephrosis, likely ur othelial carcinoma. 2. Bulky retroperitoneal lymphadenopathy with interval worsening, consistent wi th progression of metastatic disease.
== END 2023-04-29 14:03 | disposition home or self-care (01) ==
PROVIDERS: PCP Internal Medicine; Visit Provider Internal Medicine Hematology & Oncology
DX: C67.8 Malignant neoplasm of overlapping sites of bladder (principal)
CPT/HCPCS: 74176

== ENCOUNTER 2023-05-14 13:39 | Inpatient (IN) | payer MEDICARE, SELFPAY ==
--- NOTE | ~2023-05-14 | CT_ITS ---
Non-contrast CT scan of the Abdomen and Pelvis Clinical indication: Abdominal pain Technique: 2.5 mm axial scans were obtained through the abdomen and pelvis without intravenous or or al contrast. Dose reduction technique was used on this scan by utilizing automated exposure control a nd iterative reconstruction technique. The dose-length product (DLP) was 1244.30 mGy-cm. COMPARISON: 04/29/2023 Findings: Images through the lung bases reveal bibasilar chronic interstitial disease and probable c hronic rounded atelectasis at the left lung base.. There is moderate right hydroureteronephrosis to the level of the urinary bladder. No left hydronephr osis. No radiopaque renal or ureteral stones seen. The liver, spleen, and adrenals appear normal. Pancreatic calcifications suggest chronic pancreatitis . Small gallstone noted. There are atherosclerotic calcifications of the aorta. There is extensive pa ra-aortic/retroperitoneal lymphadenopathy. There is no evidence of bowel obstruction. Small amount of abdominopelvic ascites present. Images through the pelvis were performed. Prostate gland radiation seeds are present. Urinary bladde r collapsed around a Fonseca catheter. Impression: Extensive para-aortic/retroperitoneal lymphadenopathy, compatible with metastatic disease, or possibl y lymphoma. Stable moderate right hydroureteronephrosis. Small obstructing mass/urothelial carcinoma at the right UVJ region is a consideration. Small amount of abdominopelvic ascites. Cholelithiasis. Bibasilar chronic pulmonary interstitial disease and probable left basilar rounded atelectasis. Reviewed, dictated and finalized at [facility]. Impression: Extensive para-aortic/retroperitoneal lymphadenopathy, compatible with metastat ic disease, or possibly lymphoma. Stable moderate right hydroureteronephrosis. Small obstructing mass/urothelial carcinoma at the right UVJ region is a consideration. Small amount of abdominopelvic ascites. Cholelithiasis. Bibasilar chronic pulmonary interstitial disease and probable left basilar roun ded atelectasis.
--- NOTE | ~2023-05-14 | US_ITS ---
EXAMINATION: US abdomen limited DATE: 05/15/2023 10:15 INDICATION: Right upper quadrant pain, transaminitis TECHNIQUE: Multiple grayscale and Doppler ultrasound images of the abdomen were obtained. COMPARISON: CT from yesterday FINDINGS: Bowel gas obscures visualization of the pancreas. The liver demonstrates heterogeneous echo texture. No surface nodularity. Normal hepatopetal flow in the main portal vein. There are hyperechoi c foci associated with the wall of the gallbladder which measure up to 3 mm, stones versus polyps. Th e gallbladder wall thickness is upper limits of normal. The normal common bile duct measures 6 mm. Th ere was no sonographic Whelan sign. IMPRESSION: 1. Heterogeneous echotexture of the liver of unclear significance. Consider further evaluation by con trast-enhanced MRI or CT. Reviewed, dictated and finalized at location A. IMPRESSION: 1. Heterogeneous echotexture of the liver of unclear significance. Consider fur ther evaluation by contrast-enhanced MRI or CT.
--- NOTE | ~2023-05-14 | XR_ITS ---
EXAMINATION: XR chest 2V DATE: 05/14/2023 14:01 INDICATION: Shortness of breath and weakness TECHNIQUE: Frontal and lateral views of the chest are obtained COMPARISON: 04/08/2023 FINDINGS: A left internal jugular Port-A-Cath ends with its tip in the brachiocephalic vein. There ar e small pleural effusions. There are airspace opacities of the mid and lower lung zones. No pneumotho rax is identified. There is mild thoracic spondylosis. There is moderate osteoarthritis of the right glenohumeral joint. IMPRESSION: 1. Airspace opacities of the mid and lower lung zones, consistent with atelectasis versus pneumonia. 2. Small pleural effusions. Reviewed, dictated and finalized at location [facility]. IMPRESSION: 1. Airspace opacities of the mid and lower lung zones, consistent with atelecta sis versus pneumonia. 2. Small pleural effusions.
--- NOTE | ~2023-05-14 | US_ITS ---
Renal-Bladder ultrasound Clinical History: Elevated creatinine Technique: Real-time sonographic imaging of the kidneys and urinary bladder was performed. Findings: The right kidney measures 12.5 cm in length and the left kidney measures 12.1 cm. There is probable mild right hydronephrosis. Renal cortical echogenicity is within normal limits. No renal mas s lesion is identified. The urinary bladder is partially distended at the time of this exam. No intraluminal echoes are ident ified. No abnormal wall thickening is seen. Impression: Probable mild right hydronephrosis. Reviewed, dictated and finalized at location M. Impression: Probable mild right hydronephrosis.
[2023-05-14 13:30] VITALS: BP 126/59; PULSE 97; RESP 14; TEMP 36.4; O2SAT 96
--- NOTE | 2023-05-14 13:48 | ECG_ITS ---
Measurements Intervals [place] Rate: 97 P: 18 OK: 148 QRS: 27 QRSD: 100 T: 13 QT: 333 QTc: 423 Interpretive Statements SINUS RHYTHM WITH SINUS ARRHYTHMIA NORMAL ECG COMPARED TO ECG 04/07/2023 22:14:12 SINUS ARRHYTHMIA NOW PRESENT Electronically Signed On 05-14-2023 15:53:50 CDT by Leland Day D.O.
[2023-05-14 13:55] LABS: Hematocrit 33.9 % (42.0-52.0); Hemoglobin 10.8 g/dL (14.0-18.0); Mean Corpuscular HGB Conc 31.9 g/dl (32-36); Mean Corpuscular Hemoglobin 29.4 pg (26-34); Mean Corpuscular Volume 92.4 fl (80-100); Mean Platelet Volume 9.7 fl (7.4-10.4); Platelet Count Result 305 k/mm3 (150-375); Red Blood Count 3.67 M/mm3 (4.6-6.20); Red Cell Distribution Width 18.4 % (11.5-14.5); White Blood Count 17.2 K/mm3 (4.5-10.0)
[2023-05-14] MEDS: IPRATROPIUM BR 0.02% INH SOLN 0.5 MG/2.5 ML VIAL INHALATION (14:05)
[2023-05-14 14:06] VITALS: PULSE 104; RESP 18
[2023-05-14] MEDS: ALBUTEROL SULFATE NEB 2.5 MG/3 ML INH INHALATION (14:06)
[2023-05-14 14:15] LABS: Albumin Level 3.1 g/dL (3.5-5.1); Alkaline Phosphatase 746 U/L (38-126); Anion Gap 22 mmol/L (8-16); Aspartate Amino Transferase 252 U/L (17-59); Bilirubin,Total 3.5 mg/dL (0.2-1.3); Blood Urea Nitrogen 83 mg/dL (9-20); Calcium 8.7 mg/dL (8.4-10.2); Carbon Dioxide 16 mmol/L (22-30); Chloride 95 mmol/L (98-107); Estimated CRCL calculation 13 ml/min; Estimated Glomerular Filt Rate 11; Glucose 196 mg/dL (65-110); Potassium 5.2 mmol/L (3.4-5.0); Sodium 133 mmol/L (137-145)
[2023-05-14 14:21] LABS: Alanine Aminotransferase 162 U/L (6-50); NT Pro B Type Natriuretic Pept 7590 pg/mL (19.9-100)
[2023-05-14 14:27] LABS: Band Neutrophils Percent 4 % (0-6); Monocytes Absolute Manual 0.68 K/mm3 (0.1-0.90); Monocytes Percent Manual 4 % (3-9); Neutrophils Percent Manual 85 % (46-73); Platelet Estimate Adequate (Adequate); Total Cells Counted 100
[2023-05-14 14:28] LABS: Anisocytosis 2+ (NORMAL); Schistocytes None Seen (NORMAL)
[2023-05-14] MEDS: ONDANSETRON INJ 4 MG/2 ML VIAL IV PUSH (14:40)
--- NOTE | 2023-05-14 16:15 | PC.NURSE ---
pt had emesis of 20 cc coffee ground emesis. pt states this is what he has been vomiting at home. edp notified.
[2023-05-14 16:51] LABS: Glucose Point of Care 212 mg/dl (65-105)
[2023-05-14] MEDS: PANTOPRAZOLE SODIUM IV 40 MG VIAL IV PUSH ×2 (16:51→23:14)
--- NOTE | 2023-05-14 17:04 | ED.GENADULT ---
HPI - General Adult General Chief complaint: Shortness of Breath/Dyspnea Stated complaint: flu like, dyspnea Time Seen by Provider: 05/14/23 13:46 History of Present Illness HPI narrative: Patient is an 82-year-old male who presents ER with weakness and shortness of breath. Worsening over the last week. Patient has history of bladder cancer. Received immunotherapy 5 days ago[address] He sees Dr. Rizvi. No chest pain or chest pressure. Denies fever. Cough is coarse but nonproductive. No known sick contacts. Patient has mild edema to lower extremities that she reports is chronic. He sees Dr. Gastelum for chronic kidney disease. Patient has been having current vomiting at home and had poor oral intake over the last couple days Related Data Home Medications Medication Instructions Recorded Confirmed fluticasone fur. 100 mcg-umeclid 1 inh inhalation QAM 02/25/22 05/09/23 62.5 mcg-vilant 25 mcg inhalat.powder (Trelegy Ellipta) albuterol sulfate 90 mcg/actuation 2 puff inhalation PRN PRN 08/19/22 05/09/23 aerosol inhaler Shortness Of Breath acetaminophen 500 mg tablet 1,000 mg PO Q6H PRN Pain 09/29/22 05/09/23 (Acetaminophen Extra Strength) prednisone 10 mg tablets in a dose 10 mg PO DIRECTED 04/04/23 04/26/23 pack povidone-iodine 10 % in ethyl 1 ea topical DAILY 04/08/23 04/26/23 alcohol topical swab Allergies Allergy/AdvReac Type Severity Reaction Status Date / Time dapagliflozin [From [facility]] Allergy Intermediate rash, Verified 05/14/23 13:47 itching amlodipine Allergy Mild swollen Verified 05/14/23 13:47 legs, rash Review of Systems Review of Systems: All systems reviewed & are unremarkable except as noted in HPI and below Constitutional: Constitutional: Denies chills, Reports fatigue and Denies fever(s) ENT: Denies nasal congestion and Denies sore throat Cardiovascular: Cardiovascular: Denies chest pain, Denies rapid heart rate and Denies radiating jaw, neck or arm pain Respiratory: Respiratory: Reports cough, Reports dyspnea and Reports wheezing Gastrointestinal: Gastrointestinal: Denies abdominal pain, Denies diarrhea, Reports nausea and Reports vomiting Genitourinary: Genitourinary: Reports no additional male genitourinary complaints Integumentary/Breasts: Skin/Breast: Reports skin ulcer (Chronic to the fingers from previous chemotherapy.) Neurologic: Reports system reviewed and no additional complaints, except as documented PMF Past Medical History Medical History Acute CVA (cerebrovascular accident) Anemia in CKD (chronic kidney disease) Bladder cancer Diagnosed 12/2019 BMI 36.0-36.9,adult Cataracts, bilateral Chronic back pain Chronic kidney disease, stage IV (severe) Chronic renal failure, stage 3 (moderate) COPD (chronic obstructive pulmonary disease) CPAP (continuous positive airway pressure) dependence GERD (gastroesophageal reflux disease) History of CVA with residual deficit History of rectal polyps HTN (hypertension) Hyperlipidemia Insomnia Obesity Prostate cancer Sleep apnea Slurred speech Stroke Type 2 diabetes mellitus without complication, without long-term current use of insulin Vitamin D deficiency Surgical History Surgical History History of facial surgery Family History Family History Mother Cerebrovascular accident, Onset Age: 93 Patient's mother is Obesity Father Cerebrovascular accident, Onset Age: 84 Patient's father is Other Diabetes mellitus Family history of malignant neoplasm Hypertension Social History Social History Smoking packs per day: 1 Smoking cigarettes per day: 20.0 Years smoked: 40 Smoking pack-years: 40.00 Smoking status: Former smoker Tobacco type
[2023-05-14] MEDS: SODIUM CHLORIDE 0.9% IV 1,000 ML 999 ML IV CONT (17:10)
--- NOTE | 2023-05-14 17:33 | PC.NURSE ---
attempt at straight cath ramsey returned no urine. bladder scan showed no urine. edp informed. pt again nauseated. ct ordered. familty remains at bedside.
[2023-05-14 20:00] VITALS: BP 169/59; PULSE 90; RESP 22; TEMP 36.4; O2SAT 100; BMI 31.8
--- NOTE | 2023-05-14 20:17 | PM.IMHP ---
H&P: HPI History of Present Illness Date/Time: 05/14/23 20:17 Chief Complaint: Generalized Weakness, SOB Narrative: 82 y/o M with PMH of bladder cancer, CKD w/secondary anemia, COPD, HTN, HLD, ABIGAIL, DM, and prostate cancer presents here with generalized weakness and shortness of breath. Patient reports weakness and shortness of breath have been worsening over the last week. Patient also endorses decreased appetite for the last 24-36 hours, with last p.o. intake yesterday morning. + nausea with vomiting, emesis has coffee-ground appearance. +Fatigue. Stool appearance unknown, patient is constipated. +Cough, wet sounding , non-productive unchanged from patient's baseline. Albuterol neb and rescue inhaler used without resolution of symptoms. No aggravating/allevating factors idenitifed by patient. Denies fever, chills, body aches, or chest pain/pressure. He also reports chronic BLE edema that is unchanged as well as vasculitis effecting fingertips, R>L, that is also unchanged. Currently receiving immunotherapy for bladder cancer, with last treatment being 5 days ago. Follow[address] with Dr. Rizvi. Denies urinary symptoms. 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 History of rectal polyps HTN (hypertension) Hyperlipidemia Insomnia Prostate cancer Sleep apnea Stroke Type 2 diabetes mellitus without complication, without long-term current use of insulin Vitamin D deficiency Surgical History Surgical History (Updated 05/14/23 @ 20:38 by Melissa Manzano APRN) History of brachytherapy History of facial surgery Port-A-Cath in place Non-Power, 10/04/22 Family History Family History (Updated 05/14/23 @ 20:43 by Melissa Manzano APRN) Mother Cerebrovascular accident, Onset Age: 93 Patient's mother is Obesity Father Cerebrovascular accident, Onset Age: 84 Diabetes mellitus Hypertension Patient's father is Waldenstrom macroglobulinemia Sibling Kidney disease Social History Social History (Updated 05/14/23 @ 21:46 by Melissa Manzano, DEVON) Social History: Lives alone. Son stays with patient occasionally to assist. Daughter also involved with care. Uses cane, walker, or wheelchair for mobility. Smoking packs per day: 1 Smoking cigarettes per day: 20.0 Years smoked: 40 Smoking pack-years: 40.00 Smoking status: Former smoker Second hand tobacco smoke exposure: Yes Alcohol intake: current Drinks per week: 0 Alcohol use details: 1-2 nightly previously, no current use Substance use: never Lack of Transportation: No Lack of Food: Never True Current Housing: I Have Housing Concerned About Future Housing: No Difficulty Paying Gas/Electric Bills: No Difficulty Paying for Meds: No Currently Unemployed: No Education: High School Diploma/GED Difficulty w/ Childcare or Family Care: No Living arrangements: alone Gender identity (if verbalized by the patient): Male Sexual Orientation (if Verbalized by the Patient): Straight or Heterosexual Spiritual care concerns: No Agree to blood products: No Meds Home Medications and Allergies Home Medications Medication Instructions Recorded Confirmed Type blood sugar diagnostic (OneTouch #300 ea 09/01/20 05/14/23 Rx Ultra Blue Test Strip) pen needle, diabetic 32 gauge x #100 ea 05/27/22 0
--- NOTE | 2023-05-14 20:24 | ADMGEN ---
This patient, Ihsan Henderson, was admitted to IMU Room 207-01. Patient/family oriented to hospital policies and general routines including ID bracelet, bed and alarms, visiting hours, pain management, procedures, bathroom and other care routines, personal items, smoking policy, room service/diet, and visiting hours. Information on how to activate the Rapid Response Team has been discussed. Patient/Family are encouraged to report perceived risks to care and to ask questions if they do not understand what they are told or what they should do.
[2023-05-14 20:46] VITALS: BMI 32.2
[2023-05-14] MEDS: CENTRAL LINE FLUSH 10 ML IV PUSH (20:58)
[2023-05-14 22:00] VITALS: PULSE 91
[2023-05-14 23:09] VITALS: PULSE 96
[2023-05-14] MEDS: METOPROLOL TARTRATE 50 MG TAB PO (23:09)
[2023-05-14] MEDS: PROMETHAZINE HCL 25 MG/ML AMPUL 12.5 MG IV PUSH (23:09)
[2023-05-14] MEDS: SIMVASTATIN 20 MG TABLET 40 MG PO (23:09)
[2023-05-14 23:20] LABS: INR 1.2; Prothrombin Time 15.9 Seconds (11.1-14.7)
[2023-05-14 23:21] LABS: Lactic Acid Reflex 5.3 mmol/L (0.7-2.0); Partial Thromboplastin Time 41.5 SECONDS (22.3-36.8)
[2023-05-14 23:46] LABS: Basophils Percent Auto 0.2 % (0.2-1.2); Hematocrit 32.8 % (42.0-52.0); Hemoglobin 10.3 g/dL (14.0-18.0); Immature Granulocyte Absolute 0.23 K/mm3 (0.00-0.031); Immature Granulocyte Percent A 1.4 % (0-0.5); Lymphocytes Absolute Auto 0.77 K/mm3 (0.9-3.2); Lymphocytes Percent Auto 4.8 % (18.3-44.2); Mean Corpuscular HGB Conc 31.4 g/dl (32-36); Mean Corpuscular Hemoglobin 29.5 pg (26-34); Mean Platelet Volume 10.1 fl (7.4-10.4); Monocytes Percent Auto 6.4 % (2.6-8.5); Neutrophils Absolute Auto 14.1 K/mm3 (1.3-6.7); Neutrophils Percent Auto 87.2 % (45.5-73.1); Platelet Count Result 300 k/mm3 (150-375); Red Blood Count 3.49 M/mm3 (4.6-6.20); Red Cell Distribution Width 18.6 % (11.5-14.5); White Blood Count 16.1 K/mm3 (4.5-10.0)
[2023-05-14 23:49] VITALS: PULSE 108; RESP 25
[2023-05-14] MEDS: SODIUM CHLORIDE 0.9% IV 1,000 ML 100 ML IV CONT (23:54)
[2023-05-15] VITALS (20 sets, daily range): BP systolic 128–156; BP diastolic 51–60; PULSE 75–112; RESP 16–24; TEMP 36.1–37; O2SAT 83–100
[2023-05-15 00:10] LABS: Anisocytosis 1+ (NORMAL); Platelet Estimate Adequate (Adequate); Schistocytes None Seen (NORMAL)
[2023-05-15] MEDS: SODIUM POLYSTYRENE SULFONONATE 15 GM/60 ML BTL PO (00:58)
[2023-05-15] MEDS: SODIUM CHLORIDE 0.9% IV 1,000 ML 500 ML IV CONT (00:58)
--- NOTE | 2023-05-15 01:04 | PC.NURSE ---
Stroke Volume Index Change 24.8% using passive leg raise.
[2023-05-15 01:22] LABS: Fractional Inspired Oxygen 21 %; HCO3 VBG 18.5 mEq/l (24.0-30.0)
[2023-05-15 01:25] LABS: pH VBG 7.475 (7.300-7.400)
[2023-05-15 01:26] LABS: Device ROOM AIR; PCO2 VBG 25.7 mmHg (42.0-48.0)
[2023-05-15 01:58] LABS: Reflex Lactic Acid Yes or No Add Lactic
[2023-05-15 02:17] LABS: Basophils Percent Auto 0.2 % (0.2-1.2); Eosinophils Percent Auto 0.1 % (0-4.4); Hematocrit 32.3 % (42.0-52.0); Hemoglobin 10.2 g/dL (14.0-18.0); Immature Granulocyte Absolute 0.22 K/mm3 (0.00-0.031); Immature Granulocyte Percent A 1.5 % (0-0.5); Lymphocytes Absolute Auto 0.62 K/mm3 (0.9-3.2); Lymphocytes Percent Auto 4.2 % (18.3-44.2); Mean Corpuscular HGB Conc 31.6 g/dl (32-36); Mean Corpuscular Hemoglobin 29.5 pg (26-34); Mean Corpuscular Volume 93.4 fl (80-100); Mean Platelet Volume 10.3 fl (7.4-10.4); Monocytes Absolute Auto 0.9 K/mm3 (0.1-0.6); Monocytes Percent Auto 6.4 % (2.6-8.5); Neutrophils Absolute Auto 12.9 K/mm3 (1.3-6.7); Neutrophils Percent Auto 87.6 % (45.5-73.1); Nucleated Red Blood Cells Perc 0.3 % (0.0-0.2); Platelet Count Result 282 k/mm3 (150-375); Red Blood Count 3.46 M/mm3 (4.6-6.20); Red Cell Distribution Width 18.6 % (11.5-14.5); White Blood Count 14.7 K/mm3 (4.5-10.0)
[2023-05-15 02:36] LABS: Lactic Acid 3.9 mmol/L (0.7-2.0)
[2023-05-15 02:50] LABS: Alanine Aminotransferase 420 U/L (6-50); Alkaline Phosphatase 636 U/L (38-126); Anion Gap 16 mmol/L (8-16); Bilirubin,Total 3.3 mg/dL (0.2-1.3); Blood Urea Nitrogen 90 mg/dL (9-20); Calcium 8.2 mg/dL (8.4-10.2); Carbon Dioxide 21 mmol/L (22-30); Chloride 96 mmol/L (98-107); Estimated CRCL calculation 12 ml/min; Estimated Glomerular Filt Rate 10; Glucose 216 mg/dL (65-110); Potassium 5.5 mmol/L (3.4-5.0); Sodium 133 mmol/L (137-145)
[2023-05-15 02:57] LABS: Alanine Aminotransferase 433 U/L (6-50); Albumin Level 3.1 g/dL (3.5-5.1); Alkaline Phosphatase 673 U/L (38-126); Anion Gap 14 mmol/L (8-16); Bilirubin,Total 3.5 mg/dL (0.2-1.3); Blood Urea Nitrogen 91 mg/dL (9-20); Calcium 8.5 mg/dL (8.4-10.2); Carbon Dioxide 23 mmol/L (22-30); Chloride 96 mmol/L (98-107); Estimated CRCL calculation 12 ml/min; Estimated Glomerular Filt Rate 10; Glucose 214 mg/dL (65-110); Magnesium 2.4 mg/dL (1.6-2.3); Phosphorus 6.4 mg/dL (2.5-4.5); Potassium 5.8 mmol/L (3.4-5.0); Sodium 133 mmol/L (137-145)
[2023-05-15 03:03] LABS: Hemoglobin A1C 7.9 % (<5.7)
[2023-05-15 03:12] LABS: Bacteria Urine None Seen /hpf; Need Manual Microscopic Reviewed; Non Pathogenic Casts 0-2; RBC Urine >100 /hpf (0-2); Squamous Epithelial Cell Urine None seen /hpf (Few); WBC Urine >100 /hpf
[2023-05-15 03:13] LABS: Appearance Urine Turbid (Clear); Bilirubin Urine Negative (Negative); Blood Urine 3+ (Negative); Color Urine Red (Yellow); Glucose Urine UA Negative (Negative); Ketones Urine Negative (Negative); Leukocyte Esterase Ur 2+ LEU/UL (Negative); Nitrate Urine Negative (Negative); Protein Urine 2+ mg/dL (Negative); Specific Grav Ur 1.006 (1.001-1.035); Urobilinogen Urine 0.2 mg/dL (<2.0); pH Urine 5.5 (5.0-9.0)
[2023-05-15 03:14] LABS: Add Urine Microscopic? YES
[2023-05-15 03:41] LABS: Procalcitonin 10.4 ng/mL
[2023-05-15 03:42] LABS: Aspartate Amino Transferase 1060 U/L (17-59)
[2023-05-15 03:52] LABS: Aspartate Amino Transferase 1054 U/L (17-59)
[2023-05-15 05:05] LABS: Hepatitis B Surface Antigen Negative (Negative)
[2023-05-15 05:16] LABS: HAV RESULT Negative (Negative); Hepatitis B Core IgM Result Negative (Negative)
[2023-05-15 05:23] LABS: Hepatitis C Virus Antibody Negative (Negative)
[2023-05-15 05:23] LABS: Lactic Acid Reflex 3.6 mmol/L (0.7-2.0)
[2023-05-15] MEDS: CENTRAL LINE FLUSH 10 ML IV PUSH ×3 (05:53→20:38)
[2023-05-15 08:11] LABS: Glucose Point of Care 225 mg/dl (65-105)
--- NOTE | 2023-05-15 10:01 | PM.IMPN ---
Progress Note: A&P Assessment and Plan (1) Shortness of breath: Code(s): R06.02 - Shortness of breath Status: Acute Assessment and Plan: Worsening SOB for the past week w/o fever, chills, increased sputum production or wheezing. -CXR shows area concerning for pneumonia v. Atelectasis -CT of Abdomen - extensive para-aortic/retroperitoneal lymphadenopathy, small abdominopelvic ascites. Azithromycin 500 mg Q24 initiated on 05/14 Ceftriaxone 1G Q24 initiated on 05/14 -blood cultures, lactic acid w/reflex, procalcitonin ordered -monitor daily labs (2) Bladder cancer: Code(s): C67.9 - Malignant neoplasm of bladder, unspecified Status: Acute Assessment and Plan: Currently managed by [facility]. Last immunotherapy treatment on 05/09. No active urinary complaints. CT consistent with metastatic disease -UA/UC ordered (3) Acute on chronic kidney failure: Code(s): N17.9 - Acute kidney failure, unspecified; N18.9 - Chronic kidney disease, unspecified Status: Acute Assessment and Plan: -Labs on 05/09 v. 05/14 [employer] Garment [employer]er: 3.2 ->5.2 BUN: 43 ->83 GFR: 19 -> 11 Potassium: 4.8 -> 5.2 Hyponatremia at baseline. -consulted MD Nirav (4) Elevated LFTs: Code(s): R79.89 - Other specified abnormal findings of blood chemistry Status: Acute Assessment and Plan: Worsening AST and ALT. New small volume ascites on CT of abdomen. -Labs on 04/25/23 v. 05/09/23 v. 05/14/23 AST: 30 -> 124 -> 252 ALT: 27 -> 117 -> 162 Total Bili: 0.4 -> 0.7 -> 3.5 -RUQ US ordered -hepatitis panel ordered -GI consulted Plan Patient's prognosis is poor. Labs are worsening. New onset ascites. Significant worsening of creatinine. Significant abnormality of liver function test. CT abdomen consistent with metastatic disease. Discussed hospice with patient's daughter who is the POA. She will discuss with her brother and let us know Subjective Date/time seen: 05/15/23 10:01 Interval history: no change since yesterday. Patient appears to be fluid overloaded. On room air Review of Systems Review of Systems: All systems reviewed & are unremarkable except as noted in HPI and below Exam Const: General: in distress Eyes: General: appearance normal, both eyes and all related structures Sclera: sclerae normal Pupils: Equal, round and reactive pupils present EOM: EOMs intact bilaterally Resp: Effort & Inspection: normal respiratory effort Other: rhonchorous and coarse lung sounds throughout all tello, not cleared with cough. Cardio: Rate: regular rate Rhythm: regular rhythm GI: GI Palp: Yes Soft to palpation Other: tender in epigastric region Skin: General skin exam: normal color Wounds: wounds noted Other: skin tear to proximal forearms bilaterally. ecchymosis to forearms in various stages of healing. Neuro: Speech: normal speech Motor exam (neuro): Normal motor muscle tone present throughout Sensory Exam: normal sensation Other: A/Ox4. Extrem: General: edema Other: +2 in BLE extending to distal calf. Psych: Mental Status: mental status grossly normal Affect: normal affect Objective Data Vital Signs Vital Signs: Vital Signs - 24 hr 05/14/23 13:30 05/14/23 14:06 05/14/23 20:00 Temperature 97.6 F 97.5 F L Pulse Rate 97 104 H 90 Respiratory Rate 14 18 22 H Blood Pressure 126/59 L 169/59 H Pulse Oximetry 96 100 Oxygen Delivery Room Air 05/14/23 22:00 05/14/23 23:09 05/14/23 23:49 Temperature Pulse Rate 91 96 108 H Respiratory Rate 25 H Blood Pressure Pulse Oximetry Oxygen Delivery Autopap 05/15/23 00:00 05/15/23 00:00 05/15/23 00:00 Temperature 97 F L Pulse Rate 105 H 112 H Respiratory Rate 18 Blood Pressure 156/59 H Pulse Oximetry 98 100 Oxygen Delivery Room Air 05/15/23 02:00 05/15/23 03:00 05/15/23 04:00 Temperature 97 F L Pulse Rate 95 105 H 102 H Respirator
[2023-05-15] MEDS: AZITHROMYCIN 500 MG/NS 250 ML 500 MG/250 ML BAG 250 MG IVPB (10:23)
[2023-05-15] MEDS: FELODIPINE 5 MG TAB CR PO (10:23)
[2023-05-15] MEDS: INSULIN GLARGINE (*BKC) 100 UNITS/ML 11 UNITS SUB-Q (10:24)
[2023-05-15] MEDS: METOPROLOL TARTRATE 50 MG TAB PO ×2 (10:24→20:37)
[2023-05-15] MEDS: PANTOPRAZOLE SODIUM IV 40 MG VIAL IV PUSH ×2 (10:24→20:37)
[2023-05-15] MEDS: INSULIN ASPART (*BKC) 100 UNITS/ML SUB-Q (10:24)
[2023-05-15] MEDS: polyethylene glycoL 3350 17 GM POWD.PACK PO (10:24)
[2023-05-15] MEDS: UMECLIDINIUM/VILANTEROL 62.5-25 MCG ELLIPTA 1 PUFF INHALATION (10:27)
--- NOTE | 2023-05-15 10:28 | WPDGICN ---
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: Code(s): C67.9 - Malignant neoplasm of bladder, unspecified; C77.2 - Secondary and unspecified malignant neoplasm of intra-abdominal lymph nodes Status: Acute Assessment and Plan: CT reviewed prognosis is guarded this can explain also elevated liver enzymes (3) Elevated LFTs: Code(s): R79.89 - Other specified abnormal findings of blood chemistry Status: Acute Assessment and Plan: probably multifactorial from wiley, anorexia, metastatic cancer (4) Pneumonia: Code(s): J18.9 - Pneumonia, unspecified organism Status: Acute Assessment and Plan: on abx (5) Acute on chronic kidney failure: Code(s): N17.9 - Acute kidney failure, unspecified; N18.9 - Chronic kidney disease, unspecified Status: Acute Assessment and Plan: treated (6) Finger ulcer: Code(s): L98.499 - Non-pressure chronic ulcer of skin of other sites with unspecified severity Status: Acute (7) Diabetes mellitus with chronic kidney disease: Qualifiers: Diabetes mellitus type: type 2 Chronic kidney disease stage: stage 4 (severe) Code(s): E11.22 - Type 2 diabetes mellitus with diabetic chronic kidney disease Status: Chronic GI Consult Note Consult date/time: 05/15/23 10:28 Reason for consult: n/v, metastatic bladder cancer, elevated lft HPI: Ihsan Henderson is a 82 year old male with medical history of bladder cancer with metastasis (following Dr. Rizvi) last received immunotherapy for his cancer 5 days ago, COPD, HTN, ABIGAIL, DMII, CKD, anemia of renal disease who came to the ED with dyspnea and also declining over the past week with worsening weakness and dyspnea, nausea and decrease appetite with vomiting (bilious mostly but some dark material), also constipated. He was found to have possible pneumonia, given rocephin/azithromycin. Also acute renal injury with Cr significantly elevated to 5, elevated liver enzymes 400-1000, bili 3, hgb stable 10. CT scan reviewed, Extensive para-aortic/retroperitoneal lymphadenopathy, compatible with metastatic disease. Stable moderate right hydroureteronephrosis. Small obstructing mass/urothelial carcinoma at the right UVJ region is a consideration. Small amount of abdominopelvic ascites. Cholelithiasis. Bibasilar chronic pulmonary interstitial disease and probable left basilar rounded atelectasis. Review of Systems Constitutional: Constitutional: Reports fatigue and Reports lethargy Eyes: Eyes: Denies blurry vision ENT: Reports Normal hearing present Cardiovascular: Cardiovascular: Denies chest pain Respiratory: Respiratory: Denies hemoptysis Gastrointestinal: Gastrointestinal: Reports nausea and Reports vomiting Genitourinary: Comments: h/o bladder cancer Musculoskeletal: Musculoskeletal: Denies neck pain Integumentary/Breasts: Skin/Breast: Denies rash Neurologic: Denies Abnormal speech present Psychiatric: Psychiatric: Denies behavioral changes [facility] Past Medical History Medical History (Updated 05/15/23 @ 10:34 by Hardeep Bowden MD) Anemia in CKD (chronic kidney disease) Bladder cancer Diagnosed 12/2019 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
[2023-05-15 11:43] LABS: Glucose Point of Care 214 mg/dl (65-105)
[2023-05-15 12:24] LABS: Gastric Negative Control Negative; Gastric Positive Control Positive; Occult Blood Gastric Fluid Positive; pH Gastric Fluid 5 (1-8)
--- NOTE | 2023-05-15 13:46 | PM.CNNEP ---
Assessment and Plan Assessment and plan (1) Chronic kidney disease, stage IV (severe): Code(s): N18.4 - Chronic kidney disease, stage 4 (severe) Status: Chronic Assessment and Plan: the patient has chronic kidney disease. This is most likely due to diabetes plus hypertension. 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 This has been seen before. He is being followed by Urology. His baseline creatinine seems to be in the mid 2s and his GFR is in the mid 20s giving him stage IV. (2) Acute kidney injury: Code(s): N17.9 - Acute kidney failure, unspecified Status: Acute Assessment and Plan: His creatinine is worse now. This could be pre renal azotemia from poor intake. He looks dehydrated to me. His mucous membranes are dry. The patient also has pneumonia which could contribute as well. He is getting antibiotics for this he has the hydronephrosis which has been there before he could also have rhabdomyolysis but is low likelihood. Other causes such as glomerulonephritis are less likely. Interstitial nephritis is always a possibility in somebody who was recently been in the hospital but he does not have a rash or eosinophilia. Will check urine electrolytes, CPK, and a renal ultrasound (3) Hyperkalemia: Code(s): E87.5 - Hyperkalemia Status: Acute Assessment and Plan: potassium is mildly high. Most likely related to the renal failure. Will give lokelma. (4) Hyponatremia: Code(s): E87.1 - Hypo-osmolality and hyponatremia Status: Chronic Assessment and Plan: This is likely related to the renal failure as well. Will follow this along as he gets hydrated (5) Respiratory alkalosis: Code(s): E87.3 - Alkalosis Status: Acute Assessment and Plan: the patient has primary respiratory alkalosis. He does have a metabolic compensation this is probably gone a little bit too far most likely due to his dehydration. The alkalosis is most likely due to the pneumonia and infection. This should all improved with fluids and antibiotics. (6) Elevated liver enzymes: Code(s): R74.8 - Abnormal levels of other serum enzymes Status: Acute Assessment and Plan: Liver enzymes are elevated. Possibly related to the infection. However, Ultrasound and CT are not normal. hospitalists working with this. (7) Pneumonia: Code(s): J18.9 - Pneumonia, unspecified organism Status: Acute Assessment and Plan: He is on antibiotics (8) Hypertension: Qualifiers: Hypertension type: unspecified Qualified Code(s): I10 - Essential (primary) hypertension Code(s): I10 - Essential (primary) hypertension Status: Acute Assessment and Plan: blood pressure doing well (9) Diabetes: Qualifiers: Diabetes mellitus type: type 2 Diabetes mellitus intermediate insulin use: without roasterman use Diabetes mellitus complication status: without complication Qualified Code(s): E11.9 - Type 2 diabetes mellitus without complications Code(s): E11.9 - Type 2 diabetes mellitus without complications Status: Acute Assessment and Plan: on Accu-Cheks and sliding-scale insulin per hospitalists. (10) Bladder cancer: Code(s): C67.9 - Malignant neoplasm of bladder, unspecified Status: Acute Assessment and Plan: Management per Hematology History of Present Illness Reason for Consult Consult date: 05/15/23 Chief Complaint Chief complaint: Pneumonia,Acute on Chronic Renal Failure,Hyperkale History of Present Illness Narrative: Ihsan is a very pleasant 82-year-old gentleman who has multiple medical problems including chronic kidney disease, diabetes, hypertension, hyperlipidemia, COPD, bladder cancer with metastases under the care of Dr. Rizvi, Cataracts, GERD, stroke, vitamin-D deficiency, and sleep apnea. T
[2023-05-15 15:45] LABS: Glucose Point of Care 167 mg/dl (65-105)
[2023-05-15 16:00] LABS: Creatine Kinase 243 U/L (55-170)
[2023-05-15 16:58] LABS: Glucose Point of Care 157 mg/dl (65-105)
[2023-05-15] MEDS: SODIUM ZIRCONIUM CYCLOSILICATE 10 GM POWD.PACK PO (19:30)
[2023-05-15] MEDS: SIMVASTATIN 20 MG TABLET 40 MG PO (20:37)
[2023-05-15] MEDS: SENNA/DOCUSATE SODIUM TABLET 1 TAB PO (20:38)
[2023-05-15 21:31] LABS: Glucose Point of Care 134 mg/dl (65-105)
[2023-05-16] VITALS (15 sets, daily range): BP systolic 111–133; BP diastolic 42–82; PULSE 65–103; RESP 16–24; TEMP 36.3–37; O2SAT 90–100
--- NOTE | 2023-05-16 | ECHOL_ITS ---
Patient Info Name: Ihsan Henderson Age: 82 years : 1940 Gender: Male Ht: 71 in Wt: 231 lbs BSA: 2.32 m2 HR: 67 bpm BP: 118 / 54 mmHg Heart Rhythm: Sinus Rhythm Technical Quality: Fair Exam Date: 05/16/2023 10:52 AM Exam Location: [facility] Card Pulmonary Patient Status: Inpatient Admit Date: 05/15/2023 Staff Ordering Physician: Melissa Manzano APRN Air Gun Operator: Nasra Taveras RDCS Attending Provider: Jhony Brady MD Referring Physician: Jose Juan IGLESIAS; Exam Type: CA echo limited Study Info Indications - elevated bnp, ascites, and worsening sob Complete two-dimensional, color flow and Doppler transthoracic echocardiogram is performed. Summary 1. Complete two-dimensional, color flow and Doppler transthoracic echocardiogram is performed. 2. Left ventricular hypertrophy with hyperdynamic systolic function. 3. Sclerotic but nonstenotic aortic valve. 4. Left atrial enlargement. 5. Compared to examination from approximately 5 weeks ago nothing has changed. Left Ventricle Left ventricular chamber dimension is normal. Left ventricular systolic function is hyperdynamic, estimated at >70%. There is moderate concentric increased left ventricular wall thickness. Right Ventricle Right ventricular chamber dimension is normal. Left Atria Left atrial chamber dimension is moderately enlarged. Right Atria Right atrial chamber dimension is normal. Aortic Valve The aortic valve is trileaflet. There is mild aortic valve sclerosis. Pulmonic Valve The pulmonic valve is not well visualized. Mitral Valve The mitral valve has normal leaflets. The mitral valve annulus is mildly calcified. Tricuspid Valve The tricuspid valve leaflets are normal. Pericardium/Pleural The pericardium appears normal. Aorta The aortic root size at the sinus of Valsalva is normal. Pulmonic Valve Name Value Normal PV Doppler PV Peak Gradient 7 mmHg Tricuspid Valve Name Value Normal TV Regurgitation Doppler TR Peak Velocity 344 cm/s TR Peak Gradient 47 mmHg Estimated PAP/RSVP RA Pressure 10 mmHg <=5 PA Systolic Pressure 57 mmHg <36 RV Systolic Pressure 57 mmHg <36 Report Signatures
[2023-05-16 05:11] LABS: Albumin Level 2.6 g/dL (3.5-5.1); Anion Gap 13 mmol/L (8-16); Blood Urea Nitrogen 106 mg/dL (9-20); Calcium 7.8 mg/dL (8.4-10.2); Carbon Dioxide 23 mmol/L (22-30); Chloride 98 mmol/L (98-107); Estimated CRCL calculation 10 ml/min; Estimated Glomerular Filt Rate 8; Glucose 110 mg/dL (65-110); Phosphorus 5.7 mg/dL (2.5-4.5); Potassium 4.9 mmol/L (3.4-5.0); Sodium 134 mmol/L (137-145)
[2023-05-16 06:02] LABS: Sodium Urine Random 59 meq/L
[2023-05-16 06:44] LABS: Total Protein Urine Random > 600 mg/dL
[2023-05-16] MEDS: UMECLIDINIUM/VILANTEROL 62.5-25 MCG ELLIPTA 1 PUFF INHALATION (08:20)
--- NOTE | 2023-05-16 11:08 | PM.PNNEP ---
Progress Note: A&P Assessment and Plan (1) Acute kidney injury: Code(s): N17.9 - Acute kidney failure, unspecified Status: Acute Assessment and Plan: ongoing deterioration possibly due to disease progression versus pneumonia... 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 Subjective Date/time seen: 05/16/23 11:08 Interval history: Follow-up for acute kidney injury/acute renal failure on chronic kidney disease. Chart reviewed -- assuming care from Dr. Garcia; renal function continues to deteriorate in association with poor urine output; nursing informs me that the topic of hospice/comfort care measure has been brought up and patient and family to discuss further. Exam Narrative: General: elderly but WD/WN male in NAD Heart: normal S1 and S2; no rub Lungs: coarse and decreased at bases Abdomen: soft, nontender, nondistended, positive bowel sounds Extremities: no cyanosis or clubbing; 1+ edema Skin: changes noted Objective Data Vital Signs Vital Signs: Vital Signs Temp Pulse Resp BP Pulse Ox O2 Del Method O2 Flow Rate 05/16/23 10:00 77 05/16/23 08:00 66 05/16/23 08:00 95 Room Air 05/16/23 08:00 98.1 F 65 18 111/58 L 97 05/16/23 08:23 17 99 Autopap 05/16/23 06:00 67 05/16/23 04:00 97.3 F L 69 20 118/54 L 95 05/16/23 04:00 93 Autopap 05/16/23 04:00 66 05/16/23 02:50 103 H 22 H Autopap 05/16/23 02:00 68 05/16/23 00:00 71 05/16/23 00:00 97.4 F L 72 24 H 133/45 L 97 05/16/23 00:00 93 Autopap 05/15/23 22:00 78 05/15/23 20:00 75 05/15/23 22:19 77 24 H 97 Autopap 05/15/23 20:37 78 05/15/23 20:00 97.9 F 76 16 128/51 L 95 05/15/23 18:00 77 05/15/23 16:00 95 Nasal Cannula 2 05/15/23 16:00 75 05/15/23 15:46 98.1 F 76 18 129/51 L 94 Intake/Output Intake/Output: Intake & Output 05/13/23 05/14/23 05/15/23 05/16/23 23:59 23:59 23:59 23:59 Intake Total 1050 640 770 Output Total 25 50 Balance 1050 615 720 Meds/Results Medications: Active Medications Generic Name Dose Route Start Last Admin Trade Name Freq PRN Reason Stop Dose Admin Acetaminophen 1,000 mg 05/14/23 21:05 Acetaminophen 500 Mg Tablet PO Q6H PRN Pain Hydrocodone Bitart/Acetaminophen 1 tab 05/14/23 18:18 Hydrocodone/Acetaminophen (*Crx) 5-325 Mg Tablet PO Q4H PRN Pain Rated 4-6 Albuterol 2.5 mg 05/14/23 21:05 Albuterol Sulfate Neb 2.5 Mg/3 Ml Inh INHALATION Q6H PRN shortness of breath or wheezing Albuterol 2 puff 05/14/23 23:42 Albuterol Sulfate (*Sp) Aerosol 1 Puff INHALATION PRN PRN Shortness Of Breath Dextrose 12.5 gm 05/14/23 22:55 Dextrose 50% 25 Gm/50 Ml Syringe IV PUSH PRN PRN Hypoglycemia Protocol Glucagon 1 mg 05/14/23 22:55 Glucagon For Inj 1 Mg Vial IM PRN PRN Hypoglycemia Protocol Glucose 15 gm 05/14/23 22:55 Glucose Oral Gel 15 Gm Of Glucse In 37.5 Gm Tube PO PRN PRN Hypoglycemia Protocol Heparin Sodium (Beef Lung) 50 units 05/14/23 13:50 Heparin Flush 50 Units/5 Ml Syringe IV PUSH PRN PRN after blood draws Heparin Sodium (Beef Lung) 50 units 05/14/23 13:50 Heparin Flush 50 Units/5 Ml Syringe IV PUSH PRN PRN after intermittent infusion Heparin Sodium (Beef Lung) 50 units 05/15/23 09:00
--- NOTE | 2023-05-16 11:29 | PM.IMPN ---
Progress Note: A&P Assessment and Plan (1) Shortness of breath: Code(s): R06.02 - Shortness of breath Status: Acute Assessment and Plan: Worsening SOB for the past week w/o fever, chills, increased sputum production or wheezing. -CXR shows area concerning for pneumonia v. Atelectasis -CT of Abdomen - extensive para-aortic/retroperitoneal lymphadenopathy, small abdominopelvic ascites. Azithromycin 500 mg Q24 initiated on 05/14 Ceftriaxone 1G Q24 initiated on 05/14 (2) Bladder cancer: Code(s): C67.9 - Malignant neoplasm of bladder, unspecified Status: Acute Assessment and Plan: Currently managed by [facility]. Last immunotherapy treatment on 05/09. No active urinary complaints. CT consistent with metastatic disease Discussed hospice with family (3) Acute on chronic kidney failure: Code(s): N17.9 - Acute kidney failure, unspecified; N18.9 - Chronic kidney disease, unspecified Status: Acute Assessment and Plan: Worsening -consulted MD Nirav nephrology (4) Elevated LFTs: Code(s): R79.89 - Other specified abnormal findings of blood chemistry Status: Acute Assessment and Plan: Worsening AST and ALT. New small volume ascites on CT of abdomen. -RUQ US ordered -hepatitis panel ordered -GI consulted Plan Patient's prognosis is poor. Labs are worsening. New onset ascites. Significant worsening of creatinine. Significant abnormality of liver function test. CT abdomen consistent with metastatic disease. Discussed hospice with patient's daughter who is the POA. She will discuss with her brother and let us know. Patient is unsure at this time Subjective Date/time seen: 05/16/23 11:29 Interval history: No new issues. Patient appears to be little confused Review of Systems Review of Systems: All systems reviewed & are unremarkable except as noted in HPI and below Exam Const: General: in distress Eyes: General: appearance normal, both eyes and all related structures Sclera: sclerae normal Pupils: Equal, round and reactive pupils present EOM: EOMs intact bilaterally Resp: Effort & Inspection: normal respiratory effort Other: rhonchorous and coarse lung sounds throughout all tello, not cleared with cough. Cardio: Rate: regular rate Rhythm: regular rhythm GI: GI Palp: Yes Soft to palpation Other: tender in epigastric region Skin: General skin exam: normal color Wounds: wounds noted Other: skin tear to proximal forearms bilaterally. ecchymosis to forearms in various stages of healing. Neuro: Speech: normal speech Motor exam (neuro): Normal motor muscle tone present throughout Sensory Exam: normal sensation Other: A/Ox4. Extrem: General: edema Other: +2 in BLE extending to distal calf. Psych: Mental Status: mental status grossly normal Affect: normal affect Objective Data Vital Signs Vital Signs: Vital Signs - 24 hr 05/15/23 12:00 05/15/23 12:00 05/15/23 14:00 Temperature Pulse Rate 83 78 Respiratory Rate Blood Pressure Pulse Oximetry 90 Oxygen Delivery Nasal Cannula Oxygen Flow Rate 2 05/15/23 15:46 05/15/23 16:00 05/15/23 16:00 Temperature 98.1 F Pulse Rate 76 75 Respiratory Rate 18 Blood Pressure 129/51 L Pulse Oximetry 94 95 Oxygen Delivery Nasal Cannula Oxygen Flow Rate 2 05/15/23 18:00 05/15/23 20:00 05/15/23 20:37 Temperature 97.9 F Pulse Rate 77 76 78 Respiratory Rate 16 Blood Pressure 128/51 L Pulse Oximetry 95 Oxygen Delivery Oxygen Flow Rate 05/15/23 22:19 05/15/23 20:00 05/15/23 22:00 Temperature Pulse Rate 77 75 78 Respiratory Rate 24 H Blood Pressure Pulse Oximetry 97 Oxygen Delivery Autopap Oxygen Flow Rate 05/16/23 00:00 05/16/23 00:00 05/16/23 00:00 Temperature 97.4 F L Pulse Rate 72 71 Respiratory Rate 24 H Blood Pressure 133/45 L Pulse Oximetry 93
[2023-05-16 11:53] LABS: Glucose Point of Care 107 mg/dl (65-105)
[2023-05-16 11:53] LABS: Glucose Point of Care 155 mg/dl (65-105)
--- NOTE | 2023-05-16 13:10 | WPDGIPROGNO ---
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: Code(s): C67.9 - Malignant neoplasm of bladder, unspecified; C77.2 - Secondary and unspecified malignant neoplasm of intra-abdominal lymph nodes Status: Acute (5) Pneumonia: Code(s): J18.9 - Pneumonia, unspecified organism Status: Acute Subjective Date/time seen: 05/16/23 13:10 Interval history: no major changes, still nauseous family and patient made decision to enroll in hospice and go home soon Review of Systems Review of Systems: All systems reviewed & are unremarkable except as noted in HPI and below Exam Const: Other: chronically ill appearing HENMT: Face/Nose/Sinus: Normal nares present Eyes: Sclera: sclerae normal Neck: Neck: supple Resp: Auscultation: rales (bases) Cardio: Rate: regular rate GI: GI Palp: Yes Soft to palpation, Yes Tenderness to palpation present (GI) (mild ttp in epigastric, no rebound) and No Guarding due to palpation present (GI) Auscultation: normal bowel sounds Skin: General skin exam: normal color Neuro: Speech: normal speech Extrem: General: pedal edema Other: noted dark changes in finger Psych: Affect: normal affect Objective Data Vital Signs Vital Signs: Vital Signs - 24 hr 05/15/23 14:00 05/15/23 15:46 05/15/23 16:00 Temperature 98.1 F Pulse Rate 78 76 75 Respiratory Rate 18 Blood Pressure 129/51 L Pulse Oximetry 94 Oxygen Delivery Oxygen Flow Rate 05/15/23 16:00 05/15/23 18:00 05/15/23 20:00 Temperature 97.9 F Pulse Rate 77 76 Respiratory Rate 16 Blood Pressure 128/51 L Pulse Oximetry 95 95 Oxygen Delivery Nasal Cannula Oxygen Flow Rate 2 05/15/23 20:37 05/15/23 22:19 05/15/23 20:00 Temperature Pulse Rate 78 77 75 Respiratory Rate 24 H Blood Pressure Pulse Oximetry 97 Oxygen Delivery Autopap Oxygen Flow Rate 05/15/23 22:00 05/16/23 00:00 05/16/23 00:00 Temperature 97.4 F L Pulse Rate 78 72 Respiratory Rate 24 H Blood Pressure 133/45 L Pulse Oximetry 93 97 Oxygen Delivery Autopap Oxygen Flow Rate 05/16/23 00:00 05/16/23 02:00 05/16/23 02:50 Temperature Pulse Rate 71 68 103 H Respiratory Rate 22 H Blood Pressure Pulse Oximetry Oxygen Delivery Autopap Oxygen Flow Rate 05/16/23 04:00 05/16/23 04:00 05/16/23 04:00 Temperature 97.3 F L Pulse Rate 66 69 Respiratory Rate 20 Blood Pressure 118/54 L Pulse Oximetry 93 95 Oxygen Delivery Autopap Oxygen Flow Rate 05/16/23 06:00 05/16/23 08:23 05/16/23 08:00 Temperature 98.1 F Pulse Rate 67 65 Respiratory Rate 17 18 Blood Pressure 111/58 L Pulse Oximetry 99 97 Oxygen Delivery Autopap Oxygen Flow Rate 05/16/23 08:00 05/16/23 08:00 05/16/23 10:00 Temperature Pulse Rate 66 77 Respiratory Rate Blood Pressure Pulse Oximetry 95 Oxygen Delivery Room Air Oxygen Flow Rate 05/16/23 11:58 05/16/23 12:00 05/16/23 12:00 Temperature 98.6 F Pulse Rate 77 76 Respiratory Rate 18 Blood Pressure 117/82 Pulse Oximetry 97 95 Oxygen Delivery Room Air Oxygen Flow Rate Intake/Output Intake/Output: Intake & Output 05/13/23 05/14/23 05/15/23 05/16/23 23:59 23:59 23:59 23:59 Intake Total 1050 640 770 Output Total 25 50 Bal
[2023-05-16 16:01] LABS: Glucose Point of Care 194 mg/dl (65-105)
--- NOTE | 2023-05-16 20:22 | PC.NURSE ---
This patient, Ihsan Henderson, was transferred to [facility] on 05/16/23 at 2023. Personal belongings sent with patient. Report given to Concepcion RAMIREZ. Appropriate documentation sent with patient.
[2023-05-16] MEDS: METOPROLOL TARTRATE 50 MG TAB PO (22:21)
[2023-05-16] MEDS: CENTRAL LINE FLUSH 10 ML IV PUSH (22:23)
[2023-05-17] VITALS (7 sets, daily range): BP systolic 97–133; BP diastolic 51–67; PULSE 68–75; RESP 18–20; TEMP 36.4–37.2; O2SAT 92–99
[2023-05-17] MEDS: CENTRAL LINE FLUSH 10 ML IV PUSH ×2 (05:27→16:04)
[2023-05-17] MEDS: UMECLIDINIUM/VILANTEROL 62.5-25 MCG ELLIPTA 1 PUFF INHALATION (07:21)
--- NOTE | 2023-05-17 08:45 | PM.DS ---
DS: Admitting Diagnosis Discharge Date 05/17/23 Admitting Diagnosis PATEL Bladder Cancer DS: Discharge Diagnosis Discharge Diagnosis (1) Hospice care: Code(s): Z51.5 - Encounter for palliative care Status: Acute (2) Type 2 diabetes mellitus without complication, without long-term current use of insulin: Code(s): E11.9 - Type 2 diabetes mellitus without complications Status: Acute (3) Bladder cancer: Code(s): C67.9 - Malignant neoplasm of bladder, unspecified Status: Acute DS: Summary Hospital Course Hospital Course: patient presented with Shortness of breath. CXR shows area concerning for pneumonia v. Atelectasis. CT of Abdomen - extensive para-aortic/retroperitoneal lymphadenopathy, small abdominopelvic ascites. started Azithromycin 500 mg Q24 and Ceftriaxone 1G Q24 h. also had Acute on chronic kidney failure which is worsening. patient doesnt want dialysis. nephrology was consulted. has bladder cancer. Currently managed by [facility]. Last immunotherapy treatment on 05/09. No active urinary complaints. CT consistent with metastatic disease. Worsening AST and ALT. New small volume ascites on CT of abdomen. Patient's prognosis is poor.? Labs are worsening.? New onset ascites.? Significant worsening of creatinine.? Significant abnormality of liver function test.? CT abdomen consistent with metastatic disease.? Discussed hospice with sundeep and his daughter who is the POA.? they opted for home hospice. [place]. [facility] hospice agency consulted. Time Spent with Patient Time attestation: Total time spent providing and/or coordinating discharge services: DS: Data Data Completed and Pending Labs on day of discharge: Labs from last 24 hours 05/16/23 05/16/23 05/16/23 15:56 11:43 07:28 POC Capillary Glucose 194 H 155 H 107 H Preliminary micro results at discharge 05/14/23 16:44 Blood Culture - Preliminary Blood 05/14/23 16:44 Blood Culture - Preliminary Blood Discharge Plan Discharge Consulting providers: Hardeep Bowden; Bong Gastelum Discharging Clinician: Jhony Brady Anticipated Discharge Date/Time: 05/17/23 08:40 Patient Disposition: Hospice - Home Activity: no preference Diet: regular Stand Alone Forms: General Discharge Information Follow-up/Referrals: Tobin Alejandro, DO [Primary Care Provider] - Discharge Medications: New hydrocodone-acetaminophen 5-325 mg Tablet 1 tablet PO Q4H PRN (Reason: Pain Rated 4-6) Qty: 20 0RF lorazepam [Lorazepam Intensol] 2 mg/mL Concentrate 1 mg sublingual Q4H PRN (Reason: Anxiety) Qty: 30 0RF Continued albuterol sulfate 90 mcg/actuation HFA aerosol inhaler 2 puff INHALATION PRN PRN (Reason: Shortness Of Breath) albuterol sulfate 2.5 mg /3 mL (0.083 %) solution for nebulization 2.5 mg inhalation Q6H PRN (Reason: shortness of breath or wheezing) Qty: 75 0RF acetaminophen [Acetaminophen Extra Strength] 500 mg Tablet 1,000 mg PO Q6H PRN (Reason: Pain) (DME) OneTouch Ultra Blue Test Strip Strip See Rx Instructions .ROUTE .MEDSUPPLY Qty: 300 5RF Rx Instructions: Use to check BS 3 times daily (DME) pen needle, diabetic [BD Ultra-Fine Kaelyn Pen Needle] 32 gauge x 5/32 needle See Rx Instructions .Route Qty: 100 3RF Rx Instructions: Use with injection once daily (DME) lancets [OneTouch Delica Plus Lancet] 30 gauge misc See Rx Instructions .Route Qty: 200 3RF Rx Instructions: Use to check blood sugar 3 times daily Discontinued simvastatin 40 mg tablet 40 mg PO HS Qty: 90 1RF Soliqua 100/33 100 unit-33 mcg/mL insulin pen 22 unit subcut QAM 90 Days Qty: 30 1RF Rx Instructions: as prescribed [id number] alcohol 10 % Swab 1 ea TOPICAL DAILY Rx Instructions: apply to affected fingers on both hands pantoprazole 40 mg Tablet,Delayed Release (Dr/Ec) 40 mg PO QAM 30 Days Qty: 30 0RF
[2023-05-17] MEDS: HYDROcodone/acetaminophen (*CRX) 5-325 MG TABLET 1 TAB PO ×2 (09:15→16:19)
[2023-05-17] MEDS: HEPARIN SODIUM LOCK FLUSH 500 UNITS/5 ML SYRINGE IV PUSH (16:04)
[2023-05-17] MEDS: NEOMYCIN/POLYMYXIN/BACITRACIN OINTMENT PACKET 1 PACKET (16:25)
== END 2023-05-17 19:55 | disposition hospice, home (50) | DRG 682 ==
LOC: ANHED 13:53 → ANHIMU 18:30 → ANH3MEDSUR 05-16 20:32
PROVIDERS: Internal Medicine Nephrology; Student in an Organized Health Care Education/Training Program; Admitting Provider Student in an Organized Health Care Education/Training Program; Emergency Provider Emergency Medicine; PCP Internal Medicine; Visit Provider Hospitalist
DX: N17.9 Acute kidney failure, unspecified (principal); J18.9 Pneumonia, unspecified organism; E87.1 Hypo-osmolality and hyponatremia; E87.3 Alkalosis; R18.8 Other ascites; C77.2 Secondary and unspecified malignant neoplasm of intra-abdominal lymph nodes; C67.9 Malignant neoplasm of bladder, unspecified; D63.1 Anemia in chronic kidney disease; E11.22 Type 2 diabetes mellitus with diabetic chronic kidney disease; E87.5 Hyperkalemia; E78.5 Hyperlipidemia, unspecified; E86.0 Dehydration; E55.9 Vitamin D deficiency, unspecified; E66.9 Obesity, unspecified; G89.29 Other chronic pain; G47.33 Obstructive sleep apnea (adult) (pediatric); H26.9 Unspecified cataract; I12.9 Hypertensive chronic kidney disease with stage 1 through stage 4 chronic kidney disease, or unspecified chronic kidney disease; I77.6 Arteritis, unspecified; I69.322 Dysarthria following cerebral infarction; J44.9 Chronic obstructive pulmonary disease, unspecified; K59.00 Constipation, unspecified; K21.9 Gastro-esophageal reflux disease without esophagitis; N13.30 Unspecified hydronephrosis; N18.4 Chronic kidney disease, stage 4 (severe); R74.8 Abnormal levels of other serum enzymes; Z68.32 Body mass index [BMI] 32.0-32.9, adult; Z85.46 Personal history of malignant neoplasm of prostate; Z87.891 Personal history of nicotine dependence; Z99.89 Dependence on other enabling machines and devices; Z79.4 Long term (current) use of insulin; Z79.82 Long term (current) use of aspirin
CPT/HCPCS: 36415; 71046; 74176; 76705; 76775; 80053; 80069; 80074; 81001; 82271; 82550; 82570; 82803; 82948; 83036; 83605; 83735; 83880; 83986; 84100; 84145; 84156; 84300; 85025; 85610; 85730; 87040; 87086; 93005; 93308; 94640; 96361; 96365; 96375; 96376; 99285; A9270; C9113; G0378; J0456; J0696; J1642; J1815; J2405; J2550; J7030